=== PATIENT | male | born 1945 | race Hispanic/Latino ===

== ENCOUNTER 2019-02-01 08:51 | Emergency (ER) | payer OTHER ==
--- NOTE | 2019-02-01 10:14 | ER ---
Nurse's Notes [facility] Name: Adolph Lopez Age: 73 yrs Sex: Male : 1945 Arrival Date: 02/01/2019 Time: 08:54 Bed 18 Private MD: Diagnosis: Pain in right knee;Pain in left knee Presentation: 02/01 09:03 Presenting complaint: Patient states: frandy knee pain that got worse last night after iw walking at graduation last night. Transition of care: patient was not received from another setting of care. Onset of symptoms was January 31, 2019. Risk Assessment: Do you want to hurt yourself or someone else? Patient reports no desire to harm self or others. Initial Sepsis Screen: Does the patient meet any 2 criteria? No. Patient's initial sepsis screen is negative. Does the patient have a suspected source of infection? No. Patient's initial sepsis screen is negative. Care prior to arrival: None. 09:03 Method Of Arrival: Ambulatory iw 09:03 Acuity: TANIA 4 iw Historical: - Allergies: 09:05 No Known Allergies; iw - PMHx: 09:05 None; iw - PSHx: 09:05 None; iw - Immunization history:: Adult Immunizations not up to date. - Social history:: Smoking status: Patient uses tobacco products, denies chronic smoking, but will smoke occasionally. - Ebola Screening: : Patient negative for fever greater than or equal to 101.5 degrees Fahrenheit, and additional compatible Ebola Virus Disease symptoms Patient denies exposure to infectious person Patient denies travel to an Ebola-affected area in the 21 days before illness onset No symptoms or risks identified at this time. - Family history:: not pertinent. Screenin:16 Abuse screen: Denies threats or abuse. Nutritional screening: No deficits noted. em Tuberculosis screening: No symptoms or risk factors identified. Fall Risk None identified. Assessment: 09:16 General: Appears in no apparent distress. uncomfortable, Behavior is calm, cooperative, em Denies fever. Pain: Complains of pain in left knee Pain currently is 10 out of 10 on a pain scale. Aggravated by exercise, increased activity. Neuro: Level of Consciousness is awake, alert, obeys commands, Oriented to person, place, time, situation. Cardiovascular: Capillary refill < 3 seconds Patient's skin is warm and dry. Respiratory: Airway is patent Respiratory effort is even, unlabored, Respiratory pattern is regular, symmetrical. Derm: Skin is intact, is healthy with good turgor, Skin is pink, warm \T\ dry. Musculoskeletal: Capillary refill < 3 seconds, Swelling absent. 09:30 Reassessment: Patient appears in no apparent distress at this time. I agree with above iw assessment by Rinku Mejias LVN. 10:12 Reassessment: Patient appears in no apparent distress at this time. Patient and/or em family updated on plan of care and expected duration. Pain level reassessed. Patient is alert, oriented x 3, equal unlabored respirations, skin warm/dry/pink. Vital Signs: 09:06 BP 141 / 79; Pulse 100; Resp 16 S; Temp 98.9(O); Pulse Ox 99% on R/A; Weight 70.31 kg; iw Height 5 ft. 3 in. (160.02 cm); Pain 10/10; 10:00 BP 141 / 87; Pulse 69; Resp 18; Pulse Ox 99% on R/A; Pain 10/10; em 09:06 Body Mass Index 27.46 (70.31 kg, 160.02 cm) iw ED Course: 08:54 Patient arrived in ED. rg4 08:56 Rinku Mejias LVN is Primary Nurse. em 08:56 Taurus Ellsworth MD is Attending Physician. bryce 09:05 Triage completed. iw 09:06 Arm band placed on. iw 09:16 Patient has correct armband on for positive identification. Bed in low position. Call em light in reach. Adult w/ patient. Pulse ox on. NIBP on. 10:01 X-ray completed. Portable x-ray completed in exam room. Patient tolerated procedure la2 well. 10:03 Knee Left 3 View XRAY In Process Unspecified. EDMS 10:13 Bayron Lee MD is Referral Physician. bryce 10:25 No provider procedures requiring assistance completed. Patient did not have IV access em during this emergency room visit. Administered Medications: 10:08 Drug: Motrin 600 mg Route: PO; em 10:25 Follow up: Response: No adverse reaction; Pain is decreased em 10:08 Drug: predniSONE 20 mg Route: PO; em 10:26 Follow up: Response: No adverse reaction; Pain is decreased em 10:08 Drug: [place] (7.5 mg-325 mg) 1 tabs Route: PO; em 10:26 Follow up: Response: No adverse reaction; Pain is decreased em Outcome: 10:13 Discharge ordered by . bryce 10:25 Discharged to home ambulatory, with family. em 10: Condition: good 10:25 Discharge instructions given to patient, family, Instructed on discharge instructions, follow up and referral plans. medication usage, Demonstrated understanding of instructions, follow-up care, medications, Prescriptions given X 3. 10:26 Patient left the ED. em Signatures: Dispatcher [employer] EDSD Taurus Ellsworth MD MD cha Munoz, Edgar, SHOULDER PAD MOLDER SHOULDER PAD MOLDER em Padmini Thomas, Alka Florez RN rg4 Sejal Luna
--- NOTE | 2019-02-01 10:14 | EDPHYS ---
Physician Documentation [facility] Name: Adolph Lopez Age: 73 yrs Sex: Male : 1945 Arrival Date: 02/01/2019 Time: 08:54 Bed 18 Private MD: ED Physician Taurus Ellsworth HPI: 02/01 10:08 This 73 yrs old Male presents to ER via Ambulatory with complaints of Knee bryce Pain. 10:08 The patient presents with decreased range of motion, pain, that is acute. The bryce complaints affect the right leg and left leg. Context: The problem was sustained at an unknown site. Onset: The symptoms/episode began/occurred 3 day(s) ago. Modifying factors: The symptoms are alleviated by elevating leg, remaining still, the symptoms are aggravated by movement, weight bearing. Associated signs and symptoms: The patient has no apparent associated signs or symptoms. Severity of symptoms: At their worst the symptoms were moderate, in the emergency department the symptoms are unchanged. The patient has not experienced similar symptoms in the past. Historical: - Allergies: 09:05 No Known Allergies; iw - PMHx: 09:05 None; iw - PSHx: 09:05 None; iw - Immunization history:: Adult Immunizations not up to date. - Social history:: Smoking status: Patient uses tobacco products, denies chronic smoking, but will smoke occasionally. - Ebola Screening: : Patient negative for fever greater than or equal to 101.5 degrees Fahrenheit, and additional compatible Ebola Virus Disease symptoms Patient denies exposure to infectious person Patient denies travel to an Ebola-affected area in the 21 days before illness onset No symptoms or risks identified at this time. - Family history:: not pertinent. ROS: 10:08 Constitutional: Negative for fever, chills, and weight loss, Eyes: Negative for injury, bryce pain, redness, and discharge, ENT: Negative for injury, pain, and discharge, Neck: Negative for injury, pain, and swelling, Cardiovascular: Negative for chest pain, palpitations, and edema, Respiratory: Negative for shortness of breath, cough, wheezing, and pleuritic chest pain, Abdomen/GI: Negative for abdominal pain, nausea, vomiting, diarrhea, and constipation, Back: Negative for injury and pain, : Negative for injury, bleeding, discharge, and swelling, Skin: Negative for injury, rash, and discoloration, Neuro: Negative for headache, weakness, numbness, tingling, and seizure, Psych: Negative for depression, anxiety, suicide ideation, homicidal ideation, and hallucinations, Allergy/Immunology: Negative for hives, rash, and allergies, Endocrine: Negative for neck swelling, polydipsia, polyuria, polyphagia, and marked weight changes, Hematologic/Lymphatic: Negative for swollen nodes, abnormal bleeding, and unusual bruising. 10:08 MS/extremity: Positive for decreased range of motion, pain, tenderness, of the right leg and left leg. Exam: 10:08 Constitutional: This is a well developed, well nourished patient who is awake, alert, bryce and in no acute distress. Head/Face: Normocephalic, atraumatic. Eyes: Pupils equal round and reactive to light, extra-ocular motions intact. Lids and lashes normal. Conjunctiva and sclera are non-icteric and not injected. Cornea within normal limits. Periorbital areas with no swelling, redness, or edema. ENT: Nares patent. No nasal discharge, no septal abnormalities noted. Tympanic membranes are normal and external auditory canals are clear. Oropharynx with no redness, swelling, or masses, exudates, or evidence of obstruction, uvula midline. Mucous membranes moist. Neck: Trachea midline, no thyromegaly or masses palpated, and no cervical lymphadenopathy. Supple, full range of motion without nuchal rigidity, or vertebral point tenderness. No Meningismus. Chest/axilla: Normal chest wall appearance and motion. Nontender with no deformity. No lesions are appreciated. Cardiovascular: Regular rate and rhythm with a normal S1 and S2. No gallops, murmurs, or rubs. Normal PMI, no JVD. No pulse deficits. Respiratory: Lungs have equal breath sounds bilaterally, clear to auscultation and percussion. No rales, rhonchi or wheezes noted. No increased work of breathing, no retractions or nasal flaring. Abdomen/GI: Soft, non-tender, with normal bowel sounds. No distension or tympany. No guarding or rebound. No evidence of tenderness throughout. Back: No spinal tenderness. No costovertebral tenderness. Full range of motion. Male : Normal genitalia with no discharge or lesions. Skin: Warm, dry with normal turgor. Normal color with no rashes, no lesions, and no evidence of cellulitis. Neuro: Awake and alert, GCS 15, oriented to person, place, time, and situation. Cranial nerves II-XII grossly intact. Motor strength 5/5 in all extremities. Sensory grossly intact. Cerebellar exam normal. Normal gait. Psych: Awake, alert, with orientation to person, place and time. Behavior, mood, and affect are within normal limits. 10:08 Musculoskeletal/extremity: Extremities: ROM: full active range of motion, Pulses: are normal with no appreciated deficits, Sensation intact. Compartment Syndrome exam of affected extremity: is normal. DVT Exam: no swelling, negative Homans' sign noted on exam, no appreciated bluish discoloration, no erythema, no increased warmth, pain, tenderness. Vital Signs: 09:06 BP 141 / 79; Pulse 100; Resp 16 S; Temp 98.9(O); Pulse Ox 99% on R/A; Weight 70.31 kg; iw Height 5 ft. 3 in. (160.02 cm); Pain 10/10; 10:00 BP 141 / 87; Pulse 69; Resp 18; Pulse Ox 99% on R/A; Pain 10/10; em 09:06 Body Mass Index 27.46 (70.31 kg, 160.02 cm) iw MDM: 08:56 Patient medically screened. [facility] 10:12 Data reviewed: vital signs, nurses notes, radiologic studies. [facility] 02/01 09:27 Order name: Knee Left 3 View XRAY em Administered Medications: 10:08 Drug: Motrin 600 mg Route: PO; em 10:25 Follow up: Response: No adverse reaction; Pain is decreased em 10:08 Drug: predniSONE 20 mg Route: PO; em 10:26 Follow up: Response: No adverse reaction; Pain is decreased em 10:08 Drug: [place] (7.5 mg-325 mg) 1 tabs Route: PO; em 10:26 Follow up: Response: No adverse reaction; Pain is decreased em Disposition: 02/01/19 10:13 Discharged to Home. Impression: Pain in right knee, Pain in left knee. - Condition is Stable. - Discharge Instructions: Joint Pain, Arthritis, Musculoskeletal Pain, Knee Pain, Arthritis, Laxx-ny-[id number]. - Prescriptions for Tylenol- Codeine #3 300-30 mg Oral Tablet - take 2 tablets by ORAL route every 6 hours As needed; 26 tablet. Medrol (Ricky) 4 mg Oral Tablets, Dose Pack - take 1 tablet by ORAL route as directed - follow package instructions; 1 packet. Motrin IB 200 mg Oral Tablet - take 2 tablet by ORAL route every 6 hours As needed as needed with food; 30 tablet. - Medication Reconciliation Form, Thank You Letter, Antibiotic Education, Prescription Opioid Use form. - Follow up: Private Physician; When: 2 - 3 days; Reason: Recheck today's complaints, Continuance of care, Re-evaluation by your physician. Follow up: Bayron Lee MD; When: 2 - 3 days; Reason: Recheck today's complaints, Re-evaluation by your physician. - Problem is new. - Symptoms have improved. Signatures: Dispatcher [employer] Taurus Cleveland MD MD cha Munoz, Edgar, COOK SUPERVISOR COOK SUPERVISOR em Padmini Thomas RN RN iw Corrections: (The following items were deleted from the chart) 10:26 10:13 02/01/2019 10:13 Discharged to Home. Impression: Pain in right knee; Pain in left em knee. Condition is Stable. Forms are Medication Reconciliation Form, Thank You Letter, Antibiotic Education, Prescription Opioid Use. Follow up: Private Physician; When: 2 - 3 days; Reason: Recheck today's complaints, Continuance of care, Re-evaluation by your physician. Follow up: Bayron Lee; When: 2 - 3 days; Reason: Recheck today's complaints, Re-evaluation by your physician. Problem is new. Symptoms have improved. bryce
[2019-02-01] MEDS ORDERED: IBUPROFEN 400 MG TAB ONE (10:18)
[2019-02-01] MEDS ORDERED: predniSONE 20 MG TAB ONE (10:18)
[2019-02-01] MEDS ORDERED: IBUPROFEN 200 MG TAB PO ONE (10:18)
[2019-02-01] MEDS ORDERED: HYDROCODONE/APAP 7.5/325 MG TAB ONE (10:18)
--- NOTE | 2019-02-01 11:22 | RAD REPORT ---
EXAM DESCRIPTION: RAD - Knee Left 3 View - 02/01/2019 10:03 am CLINICAL HISTORY: PAIN COMPARISON: No comparisons FINDINGS: Advanced osteoarthritis involves the medial joint compartment with loss of joint space and large osteophytes. A small suprapatellar joint effusion is present. No acute fracture demonstrated IMPRESSION: Advanced medial compartment osteoarthritis.
== END 2019-02-01 10:26 | disposition home or self-care (01) ==
LOC: ER 08:51
DX: M25.562 Pain in left knee (principal); M25.561 Pain in right knee; Z72.0 Tobacco use
CPT/HCPCS: 99284; J7512

== ENCOUNTER 2019-10-01 12:22 | Emergency (ER) | payer OTHER ==
--- OUTSIDE RECORDS SUMMARY | 2019-10-01 12:24 | XMS REPORT ---
:1945 [facility] [address] [place] [address] Care Team Providers Name Role Phone Unavailable Unavailable Unavailable Problems This patient has no known problems. Allergies, Adverse Reactions, Alerts This patient has no known allergies or adverse reactions. Medications This patient has no known medications.
[2019-10-01 14:45] LABS: Absolute Lymphocytes (CBC) 1.8 K/uL (0.7-4.9); Basophils % 0.9 % (0-1.3); Hematocrit 45.1 % (39.6-49.0); Lymphocytes % 24.5 % (15.3-44.8); MPV 10.6 fL (7.6-11.3); RBC Red Blood Cell Count 4.41 M/uL (4.33-5.43)
[2019-10-01 15:02] LABS: Albumin 4.2 g/dL (3.4-5.0); Bilirubin Direct 0.2 mg/dL (0-0.2); Bilirubin Total 0.4 mg/dL (0.2-1.0); Potassium 4.3 mmol/L (3.5-5.1); Protein, Total 7.8 g/dL (6.4-8.2)
[2019-10-01 15:38] LABS: Urine Blood NEGATIVE (NEG); Urine Glucose NEGATIVE (NEG); Urine Protein NEGATIVE (NEG); Urine pH 5.5 (5.0-7.0)
[2019-10-01 15:49] LABS: Urine Bacteria <20 /HPF (NONE SEEN); Urine Culture Reflex Order NOT NEEDED; Urine RBC <5 /HPF (NONE SEEN)
--- NOTE | 2019-10-01 15:51 | RAD REPORT ---
EXAM DESCRIPTION: CT - Abdomen Pelvis W Contrast - 10/01/2019 3:24 pm CLINICAL HISTORY: LLQ abd pain COMPARISON: No comparisons TECHNIQUE: Biphasic, helical CT imaging of the abdomen and pelvis was performed following 100 ml non -ionic IV contrast. No oral contrast. All CT scans are performed using dose optimization technique as appropriate and may include automated exposure control or mA/KV adjustment according to patient size. FINDINGS: No focal mass, consolidation or pleural fluid. Interstitial markings are prominent which c ould be baseline fibrosis, edema, infiltrate or a combination. Mild cardiomegaly seen without pericar dial effusion. Liver shows mild fatty infiltration pattern with no focal abnormality. No spleen or pancreatic acute finding. Gallbladder and biliary tree are also without suspicious finding. Symmetric renal function is seen with no hydronephrosis or suspicious renal mass. No pyelonephritis o r acute parenchymal process. Urinary bladder is mostly contracted. Prostate gland is mildly prominent . No adrenal abnormalities. No dilated bowel loops or bowel wall thickening. Prominent sigmoid diverticulosis present without div erticulitis. An acute GI process is not identified. No free air, free fluid or inflammatory stranding . Small bilateral fat filled inguinal hernia is present. No suspicious bony findings. IMPRESSION: Prominent sigmoid diverticulosis without diverticulitis. No acute GI process seen. No hy dronephrosis or acute finding identifiable. Small bilateral fat filled inguinal hernias are present without acute component seen. Mild fatty infiltration of the liver.
--- NOTE | 2019-10-01 16:11 | ER ---
Nurse's Notes [facility] Name: Adolph Lopez Age: 74 yrs Sex: Male : 1945 Arrival Date: 10/01/2019 Time: 12:25 Bed 15 Private MD: Diagnosis: Bilateral inguinal hernia, without obstruction or gangrene Presentation: 10/01 12:58 Presenting complaint: Patient states: left groin pain radiates into left hip X 1 month. iw Transition of care: patient was not received from another setting of care. Onset of symptoms was August 2019. Risk Assessment: Do you want to hurt yourself or someone else? Patient reports no desire to harm self or others. Initial Sepsis Screen: Does the patient meet any 2 criteria? No. Patient's initial sepsis screen is negative. Does the patient have a suspected source of infection? No. Patient's initial sepsis screen is negative. Care prior to arrival: None. 12:58 Method Of Arrival: Ambulatory iw 12:58 Acuity: TANIA 3 iw Historical: - Allergies: 12:59 No Known Allergies; iw - Home Meds: 12:59 Unable to obtain [Active]; iw - PMHx: 12:59 Arthritis; iw - PSHx: 12:59 None; iw - Immunization history:: Adult Immunizations not up to date. - Social history:: Smoking status: Patient reports the use of cigarette tobacco products, denies chronic smoking, but will smoke occasionally. - Ebola Screening: : Patient negative for fever greater than or equal to 101.5 degrees Fahrenheit, and additional compatible Ebola Virus Disease symptoms Patient denies exposure to infectious person Patient denies travel to an Ebola-affected area in the 21 days before illness onset No symptoms or risks identified at this time. - Family history:: not pertinent. - Hospitalizations: : No recent hospitalization is reported. Screenin:30 Abuse screen: Denies threats or abuse. Nutritional screening: No deficits noted. tw2 Tuberculosis screening: No symptoms or risk factors identified. Fall Risk None identified. Vital Signs: 12:59 BP 155 / 79; Pulse 88; Resp 16; Temp 98.4; Pulse Ox 98% on R/A; Weight 71.21 kg; Height iw 5 ft. 8 in. (172.72 cm); 12:59 Body Mass Index 23.87 (71.21 kg, 172.72 cm) ED Course: 12:25 Patient arrived in ED. mr 12:59 Triage completed. iw 13:22 Bed in low position. Call light in reach. Adult w/ patient. tw2 13:56 Denis Reyes MD is Attending Physician. rn 14:20 Bayron Israel, ELENA is Primary Nurse. 14:30 Inserted saline lock: 20 gauge in right antecubital area, using aseptic technique. tw2 Blood collected. 14:31 Arm band placed on. tw2 15:25 CT Abd/Pelvis - IV Contrast Only In Process Unspecified. EDMS 16:10 Elfego Xiao MD is Referral Physician. rn Administered Medications: No medications were administered Outcome: 16:11 Discharge ordered by . rn 16:46 Patient left the ED. Signatures: Dispatcher [employer] EDMS Bayron Israel, RN ELEAN tapia SarmientoCarmen mr ThomasPadmini RN RN Denis Reyes MD MD rn Wise, Tara, RN RN tw2
--- NOTE | 2019-10-01 16:11 | EDPHYS ---
Physician Documentation [facility] Name: Adolph Lopez Age: 74 yrs Sex: Male : 1945 Arrival Date: 10/01/2019 Time: 12:25 Bed 15 Private MD: ED Physician Denis Reyes HPI: 10/01 15:21 This 74 yrs old Male presents to ER via Ambulatory with complaints of left rn lower abd pain. 15:22 The patient presents with abdominal pain in the left lower quadrant. rn 15:27 Onset: The symptoms/episode began/occurred 1 month(s) ago. The symptoms do not radiate. rn Associated signs and symptoms: Pertinent negatives: nausea and vomiting, anorexia, blood in stools, chest pain, constipation, diarrhea, dysuria, fever, headache, hematuria, nausea, palpitations, shortness of breath, testicular pain, vomiting, vomiting blood. Modifying factors: The symptoms are alleviated by nothing, the symptoms are aggravated by touching the area. Severity of pain: At its worst the pain was mild in the emergency department the pain has improved. The patient has experienced similar episodes in the past. Reports about 1 month of left lower abd pain, not sure what it is, no trauma, no radiation, no fever/vomiting/diarrhea. No urinary symptoms. No swelling or bulge. No hematuria. . Historical: - Allergies: 12:59 No Known Allergies; iw - Home Meds: 12:59 Unable to obtain [Active]; iw - PMHx: 12:59 Arthritis; iw - PSHx: 12:59 None; iw - Immunization history:: Adult Immunizations not up to date. - Social history:: Smoking status: Patient reports the use of cigarette tobacco products, denies chronic smoking, but will smoke occasionally. - Ebola Screening: : Patient negative for fever greater than or equal to 101.5 degrees Fahrenheit, and additional compatible Ebola Virus Disease symptoms Patient denies exposure to infectious person Patient denies travel to an Ebola-affected area in the 21 days before illness onset No symptoms or risks identified at this time. - Family history:: not pertinent. - Hospitalizations: : No recent hospitalization is reported. ROS: 15:27 Constitutional: Negative for fever, chills, and weight loss, Eyes: Negative for injury, rn pain, redness, and discharge, Neck: Negative for injury, pain, and swelling, Cardiovascular: Negative for chest pain, palpitations, and edema, Respiratory: Negative for shortness of breath, cough, wheezing, and pleuritic chest pain, Abdomen/GI: Negative for nausea, vomiting, diarrhea, and constipation, Back: Negative for injury and pain, : Negative for injury, bleeding, discharge, and swelling, MS/Extremity: Negative for injury and deformity, Skin: Negative for injury, rash, and discoloration, Neuro: Negative for headache, weakness, numbness, tingling, and seizure. Exam: 15:27 Constitutional: This is a well developed, well nourished patient who is awake, alert, rn and in no acute distress. Head/Face: Normocephalic, atraumatic. Cardiovascular: Regular rate and rhythm. No pulse deficits. Respiratory: No increased work of breathing, no retractions or nasal flaring. Abdomen/GI: soft, non-tender, no masses Back: No spinal tenderness. No costovertebral tenderness. Full range of motion. Skin: Warm, dry with normal turgor. Normal color with no rashes, no lesions, and no evidence of cellulitis. MS/ Extremity: Pulses equal, no cyanosis. Neurovascular intact. Full, normal range of motion. Equal circumference. Neuro: Awake and alert, GCS 15, oriented to person, place, time, and situation. Cranial nerves II-XII grossly intact. Motor strength 5/5 in all extremities. Sensory grossly intact. Cerebellar exam normal. Normal gait. Vital Signs: 12:59 BP 155 / 79; Pulse 88; Resp 16; Temp 98.4; Pulse Ox 98% on R/A; Weight 71.21 kg; Height iw 5 ft. 8 in. (172.72 cm); 12:59 Body Mass Index 23.87 (71.21 kg, 172.72 cm) iw MDM: 13:56 Patient medically screened. rn 16:09 Differential diagnosis: Ureterolithiasis, urinary tract infection, inguinal hernia. rn Data reviewed: vital signs, nurses notes, lab test result(s), radiologic studies, CT scan, and as a result, I will discharge patient. Counseling: I had a detailed discussion with the patient and/or guardian regarding: the historical points, exam findings, and any diagnostic results supporting the discharge/admit diagnosis, lab results, radiology results, the need for outpatient follow up, to return to the emergency department if symptoms worsen or persist or if there are any questions or concerns that arise at home. Special discussion: I discussed with the patient/guardian in detail that at this point there is no indication for admission to the hospital. It is understood, however, that if the symptoms persist or worsen the patient needs to return immediately for re-evaluation. Based on the history and exam findings, there is no indication for further emergent testing or inpatient evaluation. I discussed with the patient/guardian the need to see the general surgeon for further evaluation of the symptoms. ED course: Pt with bilateral small fat inguinal hernias, no obstruction or acute complication, will dc home with return instructions and f/u with Dr. Xiao. . 10/01 14:02 Order name: Basic Metabolic Panel; Complete Time: 16:02 10/01 14:02 Order name: CBC with Diff; Complete Time: 16: 10/01 14:02 Order name: Creatinine for Radiology; Complete Time: 16:12 10/01 14:02 Order name: Hepatic Function; Complete Time: 16:12 10/01 14:02 Order name: Lipase; Complete Time: 16:12 10/01 14:02 Order name: Urine Microscopic Only; Complete Time: 16:12 10/01 14:02 Order name: IV Saline Lock; Complete Time: 14: 10/01 14:02 Order name: Labs collected and sent; Complete Time: 14:20 10/01 14:02 Order name: CT Abd/Pelvis - IV Contrast Only; Complete Time: 16:12 10/01 14:02 Order name: Urine Dipstick-Ancillary (obtain specimen); Complete Time: 15:08 10/01 15:10 Order name: Urine Dipstick--Ancillary (enter results); Complete Time: 16:12 bd Administered Medications: No medications were administered Disposition: 10/01/19 16:11 Discharged to Home. Impression: Bilateral inguinal hernia, without obstruction or gangrene. - Condition is Stable. - Discharge Instructions: Inguinal Hernia, Adult. - Medication Reconciliation Form, Thank You Letter, Antibiotic Education, Prescription Opioid Use form. - Follow up: Elfego Xiao MD; When: As needed; Reason: Recheck today's complaints, Re-evaluation by your physician. - Problem is an ongoing problem. - Symptoms are unchanged. Signatures: Dispatcher [employer] Padmini Gregg RN RN iw Denis Reyes MD MD rn embedded: (The following items were deleted from the chart) 16:46 16:11 10/01/2019 16:11 Discharged to Home. Impression: Bilateral inguinal hernia, iw without obstruction or gangrene. Condition is Stable. Forms are Medication Reconciliation Form, Thank You Letter, Antibiotic Education, Prescription Opioid Use. Follow up: Elfego Xiao; When: As needed; Reason: Recheck today's complaints, Re-evaluation by your physician. Problem is an ongoing problem. Symptoms are unchanged. rn
[2019-10-01 23:28] VITALS: BP 155/79; TEMP 98.4; O2SAT 98
== END 2019-10-01 16:46 | disposition home or self-care (01) ==
LOC: ER 12:22
DX: K40.20 Bilateral inguinal hernia, without obstruction or gangrene, not specified as recurrent (principal); F17.210 Nicotine dependence, cigarettes, uncomplicated
CPT/HCPCS: 85025; 80048; 36415; 80076; 83690; 74177; 99283; Q9967; 81003; 81015

== ENCOUNTER 2020-08-16 12:32 | Day surgery (SDC) | payer OTHER ==
--- NOTE | 2020-08-13 16:46 | RAD REPORT ---
EXAM DESCRIPTION: RAD - Chest Pa And Lat (2 Views) - 08/13/2020 4:40 pm CLINICAL HISTORY: pre op Chest pain. COMPARISON: No comparisons FINDINGS: The lungs are mildly emphysematous but clear. The heart is upper limit of normal in size. No displaced fractures. Mild thoracic degenerative changes. IMPRESSION: Mild COPD.
[2020-08-13 16:53] LABS: Absolute Lymphocytes (CBC) 2.4 K/uL (0.7-4.9); Hematocrit 37.2 % (39.6-49.0); Lymphocytes % 33.7 % (15.3-44.8); RBC Red Blood Cell Count 3.52 M/uL (4.33-5.43)
[2020-08-13 16:58] LABS: Protime INR 0.93
[2020-08-13 17:14] LABS: Potassium 4.8 mmol/L (3.5-5.1)
[2020-08-13 18:21] LABS: Blood Morphology Comment NOTED (NOT SEEN); Macrocytosis 1+; Platelet Estimate ADEQ; White Blood Cell Scan OK (OK)
[~2020-08-16 12:32] MED LIST: NA CHLORIDE 0.9% 500 ML ONE
[2020-08-16 12:38] VITALS: TEMP 97.7
--- OUTSIDE RECORDS SUMMARY | 2020-08-16 12:38 | XMS REPORT | Continuity of Care Document ---
:1945 Author Organization [facility] t Address [address] [place] [address] Care Team Providers Name Role Phone Driss Washburn MD Attending Clinician Alon Snell Attending Clinician Problems This patient has no known problems. Allergies, Adverse Reactions, Alerts This patient has no known allergies or adverse reactions. Medications This patient has no known medications. Procedures This patient has no known procedures. Encounters Start End Encounter Admission Attending Care Care Encounter Source Date/Time Date/Time Type Type Clinicians Facility Department ID 2020-06-30 2020-06-30 Telephone Wu [facility] [id number] 00:00:00 00:00:00 [facility] [id number] Surgical [id number] Specialti [id number] [address] 2020-02-19 2020-02-19 Telephone Wu [facility] [id number] 00:00:00 00:00:00 Tyler [employer] [id number] Surgical [id number] Specialti [id number] [address] 2019-12-17 2019-12-17 Telephone Wu [facility] [id number] 00:00:00 00:00:00 [facility] [employer] [id number] Surgical [id number] Specialti [id number] [address] 2019-10-24 2019-10-24 Telephone Kimberly LUZMA [id number] 00:00:00 00:00:00 [facility] [id number] Surgical [id number] Specialti [id number] [address] Results This patient has no known results.
--- OUTSIDE RECORDS SUMMARY | 2020-08-16 12:39 | XMS REPORT | Summary of Care ---
:1945 Author Organization [facility] Address [address] [place] [id number] Care Team Providers Name Role Phone Lam Crane Primary Care Provider Reason for Visit Reason Comments Rx Concern/Question Encounter Details Date Type Department Care Team Description 06/30/2020 Telephone [facility] Tyler Washburn , Rx Concern/Question Surgery- Chance HAQUE [address] [facility], [address] [facility] [place] [address] [place], [place] [phone] Allergies No Known Allergiesdocumented as of this encounter (statuses as of 07/01/2020) Medications Medication Sig Dispensed Refills Start Date End Date Status omeprazole (PRILOSEC) 40 Take 40 mg by 0 Active mg capsule mouth daily. methocarbamol (ROBAXIN) Take 1 tablet by 20 tablet 0 6 Active 750 mg tablet mouth 4 (four) times daily as needed for Pain (scale 7-10). diclofenac 75 mg EC Take 1 tablet by 60 tablet 1 06/10/2019 Active tablet mouth 2 (two) times daily with meals. diclofenac 75 mg EC Take 1 tablet by 60 tablet 0 10/24/2019 Active tabletIndications: mouth 2 (two) Bilateral post-traumatic times daily with osteoarthritis of knee meals. diclofenac 75 mg EC Take 1 tablet by 60 tablet 1 12/17/2019 Active tablet mouth 2 (two) times daily with meals. diclofenac 75 mg EC Take 1 tablet by 60 tablet 1 02/23/2020 Active tablet mouth 2 (two) times daily with meals. diclofenac 75 mg EC Take 1 tablet by 60 tablet 1 07/01/2020 Active tablet mouth 2 (two) times daily with meals. documented as of this encounter (statuses as of 07/01/2020) Active Problems Not on filedocumented as of this encounter (statuses as of 07/01/2020) Social History Tobacco Use Types Packs/Day Years Used Date Current Every Day Smoker Cigarettes 0.5 Alcohol Use Drinks/Week oz/Week Comments No Sex Assigned at Date Recorded Not on file documented as of this encounter Last Filed Vital Signs Not on filedocumented in this encounter Miscellaneous Notes Telephone Encounter - Trish Winkler - 07/01/2020 8:20 AM CDTMedication sent to pharmacy on file. Trish Winkler 07/01/2020 8:21 AM elephone Encounter - Donald Harris PAC - 06/30/2020 4:37 PM CDTOkay to refill elephone Encounter - Sun Pagan - 06/30/2020 12:43 PM CDT Patient needs a refill on his Diclofenac 75mg tablets? Last OV: 02/27/2019 Assessment/Plan Diagnosis 1. Bilateral post-traumatic osteoarthritis of knee XR KNEE <3 VW RIGHT Plan Osteoarthritis is first managed with [id number] medications such as Tylenol arthritis or anti-inflammatories without no longer working we can go to prescription strength anti-inflammatory medicationsNo medication is without risk anti-inflammatory's inhibit the buffy coat of the stomach which canlead to gastrointestinal bleeding. They can decrease the blood flow to the kidneys. If you're taking an anticoagulant to prevent cardiac disease they can inhibit that anticoagulants ability to protect you. Whether they are prescribed or [id number]. Cortisone injections take a day to take effect and have a duration of 1-2 months you cannot get morethan 3 cortisone injections in a year and may have to be at least 3 months apart If the cortisone injections work, I molecular hyaluronic acid injections are effective for 6 months of pain relief in 3 out of 4 people there administered one shot a week for 3 weeks Through a combination of these conservative methods we will try as long as possible not to do surgery. Eventually we may need to do a total knee replacement total knee replacements are effective in alleviating the pain of arthritis in the knee but there is a chance of needing revision and so we should wait as long as possible before doing that. No decision for surgery has been made. We will start with diclofenac sodium. documented in this encounter Plan of Treatment Health Maintenance Due Date Last Done Comments HEPATITIS C (HCV) SCREEN 1945 Depression Screening 1959 DTaP,Tdap,and Td Vaccines (1 - Tdap) 1966 COLON CANCER SCREENING ANNUAL FIT/FOBT 1997 COLON CANCER SCREENING FIT DNA EVERY 3 YEARS 1997 COLON CANCER SCREENING SIGMOIDOSCOPY EVERY 5 YEARS 1997 COLONOSCOPY 1997 Colorectal Cancer Screening 1997 Zoster Recombinant Vaccine (SHINGRIX) (1 of 2) 1997 Medicare Wellness Visit 02/25/2012 PNEUMOCOCCAL VACCINES 65+ (1 of 1 - PPSV23) 02/25/2012 INFLUENZA VACCINE (#1) 2020 documented as of this encounter Results Not on filedocumented in this encounter Insurance Payer Benefit Plan / Subscriber ID Effective Dates Phone Addre ss Type Group MEDICARE MEDICARE PART [id number] 2016-Mery [phone] Medicare A & B t 2 [id number] IGNACIO HOOPER [id number] documented as of this encounter
[2020-08-16] MEDS ORDERED: FENTANYL CITR 100 MCG/2 ML ONE (12:59)
[2020-08-16] MEDS ORDERED: HEPARIN 5000 UNIT/ML 1 ML VIAL ONE (12:59)
[2020-08-16] MEDS ORDERED: MIDAZOLAM HCL 2 MG/2 ML INJ ONE (12:59)
[2020-08-16] MEDS ORDERED: HEPA 1000U/500MLS 2,000 UNIT/1,000 ML BAG IV ONE (12:59)
[2020-08-16] MEDS ORDERED: VERAPAMIL HCL 10 MG/4 ML VIAL IV ONE (13:00)
[2020-08-16] MEDS ORDERED: ATROPINE SULF 1 MG/10 ML SYR IV ONE (13:00)
[2020-08-16] MEDS ORDERED: NITROGLYCERIN 100 MCG/ML SYR (for cath lab use only) IV ONE (13:00)
[2020-08-16] MEDS ORDERED: HEPARIN 10,000 UNIT/10 ML VIAL IV ONE (13:00)
[2020-08-16] MEDS ORDERED: ACETYLCYST 20% 4 ML VIAL IH ONE (13:23)
[2020-08-16 18:23] VITALS: O2SAT 96
[2020-08-16 18:25] VITALS: BP 130/67
--- NOTE | 2020-08-16 22:52 | OP ---
Date of Procedure: 08/16/2020 Surgeon: KUSH ARTHUR Procedure Performed: Selective coronary angiogram. Indication: Drop in ejection fraction and unstable angina. Access: Right radial artery 6-Austrian closed with TR band. Complications: None. Bleeding: Less than 10 mL. Description Of Procedure: After risks, benefits, and alternatives were explained, the patient agreed to procedure and signed informed consent. The patient was brought into the cardiac catheterization laboratory, prepped and draped in usual sterile fashion. We used fentanyl and Versed in incremental doses to achieve adequate moderate sedation. Then, we accessed right radial artery using pediatric m icropuncture kit, placed a 6-Austrian slender sheath and took 5-Austrian Dickens catheter in the aortic zahra t, engaged left main coronary artery, took standard views and then right coronary artery, took standa rd views and then took the catheter out and sheath was removed and placed TR band. Findings: 1.Left main is large with luminal irregularity, no significant disease. 2.LAD has proximal near total occlusion 99% with good collaterals that come from the conus branch fr om the RCA and the distal RCA that fills all the way to the near total occlusion. 3.D1 is very large branch with mid 90% to 95% stenosis. 4.Left circumflex large dominant circulation with proximal 30% stenosis. 5.OM1 is large branch with proximal 90% stenosis. 6.RCA is nondominant circulation with no significant disease and provides collaterals to the LAD as above. Conclusion: Severe multivessel disease as above. Recommendation: Refer for coronary artery bypass graft surgery. We will transfer the patient to [facility] for that reason. /MODL Voice ID: [id number] Report ID: [id number]
== END 2020-08-16 18:56 | disposition short-term general hospital (02) ==
LOC: CCL 12:32
PROVIDERS: ATTEND Internal Medicine
DX: I25.10 Atherosclerotic heart disease of native coronary artery without angina pectoris (principal); Z20.828 Contact with and (suspected) exposure to other viral communicable diseases; F17.210 Nicotine dependence, cigarettes, uncomplicated; I11.0 Hypertensive heart disease with heart failure; I50.9 Heart failure, unspecified
CPT/HCPCS: 85025; 80048; 36415; 85610; 85730; 71046; 93454; U0002; C1893; J1644 ×2; J2250; J3010; J7040

== ENCOUNTER 2021-03-12 16:43 | Emergency (ER) | payer OTHER ==
--- OUTSIDE RECORDS SUMMARY | 2021-03-12 16:56 | XMS REPORT | Continuity of Care Document ---
:1945 Author Organization [facility] t Address [address] [place] [address] Care Team Providers Name Role Phone Pcp Primary Care Physician Unavailable Driss Washburn MD Attending Clinician Main PARKER Attending Clinician Onesimo Vaughan MD Attending Clinician Panchito Estrada MD Attending Clinician [phone] Isabela Cason MD Attending Clinician Bernadette Flores MD Attending Clinician Mary Mares MD Attending Clinician Jj Majano MD Attending Clinician Dickson Chao MD Attending Clinician PANCHITO ESTRADA Attending Clinician Unavailable Alon Snell Attending Clinician MARY MARES Admitting Clinician Unavailable Payers Payer Name Policy Type Policy Effective Date Expiration Date Sour ce Number MEDICAREMEDICARE A [id number] 2012 IRVING Roa [id number] 2011-P 00:00:00 [facility] Problems Condition Condition Condition Status Onset Resolution Last Treating Co mments Source Name Details Category Date Date Treatment Clinician Date s/p ACB x3 s/p ACB x3 Disease Active 2019-[address] 08/18 ( 08/18 ( 10-17 [place] Clement) Clement) 00:00: Medica l 00 Center S/P CABG x S/P CABG x Disease Active [facility] 3 3 [facility] Acute Acute Disease Active [facility] respirator respirator Nadya kes - y y Medical insufficie insufficie Ce nter ncy ncy Acute Acute Disease Active [facility] post-opera post-opera Nadya kes - tive pain tive pain [facility] Vasogenic Vasogenic Disease Active [facility] shock shock [facility] Hypovolemi Hypovolemi Disease Active C [facility] c shock c shock [facility] Acute Acute Disease Active [facility] blood loss blood loss [facility] anemia anemia [facility] Thrombocyt Thrombocyt Disease Active C [facility] openia openia [facility] Hyperglyce Hyperglyce Disease Active C [facility] jayme jayme [facility] Allergies, Adverse Reactions, Alerts This patient has no known allergies or adverse reactions. Social History Social Habit Start Date Stop Date Quantity Comments Source Sex Assigned At [facility] Cigarettes smoked 2020-09-16 2020-09-16 [facility] - current (pack per 00:00:00 00:00:00 [facility] day) - Reported Tobacco use and 2020-09-16 2020-09-16 Never used [facility] - exposure 00:00:00 00:00:00 [facility] Alcohol intake 2020-09-16 2020-09-16 Current drinker [facility] Alon dean [place] - 00:00:00 00:00:00 of alcohol [facility] (finding) Alcohol Comment 2020-08-16 2020-08-16 3 beers a day [facility] - 00:00:00 00:00:00 [facility] Smoking Status Start Date Stop Date Source Current every day smoker 2020-09-16 00:00:00 [facility] Medications Ordered Filled Start Stop Current Ordering Indication Dosage Frequency Signature Comments Components Source Medication Medication Date Date Medication? Clinician (SIG) Name Name aspirin 81 2019-09- No 81mg QD Take [address] [facility] [address] MG EC 2-15 12-15 tablet (81 [facility] - tablet 00:00: 23:59 mg total) Medic al 00 :00 by mouth Center daily. lisinopriL 2019-09 No 20mg QD Take [address] [facility] (PRINIVIL,Z 2-14 12-14 by mouth [facility]rishna es - ESTRIL) 20 13:36: 00:00 daily. Medi morteza MG tablet 46 :00 Center metoprolol 2019-09 No 12.5mg Q.5D Take 0.[address] tartrate 2-14 12-14 tablets [facility] - (LOPRESSOR) 00:00: 23:59 (12.5 mg M edical 25 MG 00 :00 total) by Center tablet mouth 2 (two) times daily. atorvastati 2019-09 No 40mg QD Take [address] n (LIPITOR) 2-23 08-14 tablet (40 L ukes - 40 MG 00:00: 23:59 mg total) Medica l tablet 00 :00 by mouth Center nightly. Vital Signs Vital Name Observation Time Observation Value Comments Source Systolic blood 2020-09-16 13:10:00 132 mm[Hg] [facility] Diastolic blood 2020-09-16 13:10:00 75 mm[Hg] [facility] Heart rate 2020-09-16 13:10:00 113 /min [facility] Body temperature 2020-09-16 13:10:00 37.06 Loli [facility] Respiratory rate 2020-09-16 13:10:00 18 /min [facility] Body height 2020-09-16 13:10:00 160 cm [facility] Body weight 2020-09-16 13:10:00 69.4 kg [facility] BMI 2020-09-16 13:10:00 27.10 kg/m2 [facility] Oxygen saturation in 2020-09-16 13:10:00 96 /min room air [facility] Arterial blood by Medical Ce nter Pulse oximetry Procedures Procedure Date / Time Performing Clinician Source Performed POCT-GLUCOSE METER 2020-08-23 11:33:00 Lena Flores [facility] POCT-GLUCOSE METER 2020-08-23 08:29:00 Mark, [facility] POCT-GLUCOSE METER 2020-08-22 20:30:00 Mark, [facility] POCT-GLUCOSE METER 2020-08-22 16:44:00 Mark, [facility] POCT-GLUCOSE METER 2020-08-22 12:29:00 Mark, [facility] POCT-GLUCOSE METER 2020-08-22 08:03:00 Mark, [facility] COMPREHENSIVE METABOLIC 2020-08-22 03:23:00 Petar Baldwin [facility] MAGNESIUM 2020-08-22 03:23:00 Petar Baldwin [facility] XR CHEST 1 VIEW 2020-08-22 02:18:00 Kingsley Vaughan [facility] - PORTABLE/BEDSIDE [facility] OCCULT BLOOD, STOOL 2020-08-21 22:06:00 Petar Baldwin [facility] POCT-GLUCOSE METER 2020-08-21 21:16:00 Mark, [facility] POCT-GLUCOSE METER 2020-08-21 16:34:00 Mark, [facility] POCT-GLUCOSE METER 2020-08-21 11:27:00 Mark, [facility] POCT-GLUCOSE METER 2020-08-21 07:31:00 Mark, [facility] XR CHEST 1 VIEW 2020-08-21 04:50:00 Petar Baldwin [facility] PORTABLE/BEDSIDE [facility] COMPREHENSIVE METABOLIC 2020-08-21 03:52:00 Petar Baldwin [facility] MAGNESIUM 2020-08-21 03:52:00 Petar Baldwin [facility] PREPARE LEUKO-REDUCED RBC 2020-08-20 23:54:00 Chago Gruber [facility] POCT-GLUCOSE METER 2020-08-20 22:09:00 Mark, [facility] POCT-GLUCOSE METER 2020-08-20 17:03:00 Mark, [facility] POCT-GLUCOSE METER 2020-08-20 12:10:00 Mark, [facility] LACTIC ACID, VENOUS 2020-08-20 11:56:00 Mark, [facility] POCT-GLUCOSE METER 2020-08-20 07:32:[address] [facility] COMPREHENSIVE METABOLIC 2020-08-20 06:17:00 Petar Baldwin [facility] MAGNESIUM 2020-08-20 06:17:00 Petar Baldwin [facility] PHOSPHORUS 2020-08-20 06:17:00 Temo Mandujano [facility] XR CHEST 1 VIEW 2020-08-20 05:01:00 Petar Baldwin [facility]/BEDSIDE [facility] BLOOD GAS, ARTERIAL 2020-08-20 03:32:00 Sissy Perry [facility] SODIUM NA-STAT LAB 2020-08-20 03:32:00 Sissy Perry [facility] POTASSIUM-STAT LAB 2020-08-20 03:32:00 Sissy Perry [facility] GLUCOSE-STAT LAB 2020-08-20 03:32:00 Sissy Perry [facility] HGB/HCT (H&H) - STAT LAB 2020-08-20 03:32:00 Sissy Perry [facility] PLATELET AGGREGATION: 2020-08-20 03:32:00 Natasha Arnold [facility] - FUNCTION SCREEN [facility] CBC (HEMOGRAM ONLY) 2020-08-20 03:32:00 Temo Mandujano [facility] PROTHROMBIN TIME/INR 2020-08-20 03:32:00 Petar Baldwin [facility] APTT 2020-08-20 03:32:00 Petar Baldwin [facility] FIBRINOGEN 2020-08-20 03:32:00 [facility] POCT-GLUCOSE METER 2020-08-19 23:59:[address] APTT 2020-08-19 18:15:00 Richardson [facility] THROMBOELASTOGRAPH (TEG) 2020-08-19 16:35:00 Sarah Mcgee [facility] PROTHROMBIN TIME/INR 2020-08-19 16:35:00 Richardson [facility] APTT 2020-08-19 16:35:00 Richardson [facility] FIBRINOGEN 2020-08-19 16:35:00 Richardson [facility] POCT-GLUCOSE METER 2020-08-19 11:20:[address] APTT 2020-08-19 11:11:00 Boom [facility] CBC W/PLT COUNT & AUTO 2020-08-19 11:11:00 Richardson [facility] TRANSFUSE LEUKO-REDUCED RED 2020-08-19 10:44:02 Chago Gruber [facility] BLOOD CELLS [facility] CBC (HEMOGRAM ONLY) 2020-08-19 03:45:00 Donn Cason [facility] BLOOD GAS, ARTERIAL 2020-08-19 03:44:[address] [facility] CALCIUM, IONIZED 2020-08-19 03:44:00 Evangelina Perrybeth [facility] OXYGEN SATURATION, MEASURED 2020-08-19 03:44:00 [facility] NA-STAT LAB 2020-08-19 03:44:[address] [facility] POTASSIUM-STAT LAB 2020-08-19 03:44:00 Sissy Perry [facility] GLUCOSE-STAT LAB 2020-08-19 03:44:00 Sissy Perry [facility] HGB/HCT (H&H) - STAT LAB 2020-08-19 03:44:00 Sissy Perry [facility] LACTIC ACID, ARTERIAL 2020-08-19 03:44:[address] [facility] COMPREHENSIVE METABOLIC 2020-08-19 03:44:00 Petar Baldwin [facility] MAGNESIUM 2020-08-19 03:44:00 Petar Baldwin [facility] PHOSPHORUS 2020-08-19 03:44:00 Temo Mandujano [facility] APTT 2020-08-19 03:44:00 Isabel Huynh [facility] XR CHEST 1 VIEW 2020-08-19 01:42:00 Petar Baldwin [facility]/BEDSIDE Medical Center BLOOD GAS, ARTERIAL 2020-08-18 22:16:00 Sissy Perry [facility] LACTIC ACID, ARTERIAL 2020-08-18 22:16:[facility] 2020-08-18 22:16:00 Sissy Perry [facility] POTASSIUM-STAT LAB 2020-08-18 22:16:00 [facility] 2020-08-18 22:16:00 Sissy Perry [facility] HGB/HCT (H&H) - STAT LAB 2020-08-18 22:16:00 Sissy Perry [facility] PROTHROMBIN TIME/INR 2020-08-18 22:16:00 [facility] 2020-08-18 22:16:00 Orlando [facility] FIBRINOGEN 2020-08-18 22:16:00 [facility] W/[facility]T [facility] & AUTO 2020-08-18 20:56:00 [facility] BLOOD GAS, ARTERIAL 2020-08-18 20:56:00 [facility] OXY[facility] SATURATION, MEASURED 2020-08-18 20:56:00 [facility] SODIUM NA-STAT LAB 2020-08-18 20:56:00 [facility] 2020-08-18 20:56:00 [facility] GLU[facility]SE-STAT LAB 2020-08-18 20:56:00 Sissy Perry [facility] HGB/HCT (H&H) - STAT LAB 2020-08-18 20:56:00 Sissy Perry [facility] LACTIC ACID, ARTERIAL 2020-08-18 20:56:[address] [facility] PREPARE RBC 2020-08-18 19:13:00 Kingsley Vaughan [facility] CBC W/PLT COUNT & AUTO 2020-08-18 19:05:00 Nimo Bai [facility] XR CHEST 1 VIEW 2020-08-18 19:02:00 Sissy Perry [facility] PORTABLE/BEDSIDE Medical Center MAGNESIUM 2020-08-18 19:00:00 Temo Mandujano [facility] BLOOD GAS, ARTERIAL 2020-08-18 19:00:00 Sissy Perry [facility] LACTIC ACID, ARTERIAL 2020-08-18 19:00:00 Sissy Perry [facility] COMPREHENSIVE METABOLIC 2020-08-18 19:00:00 Sissy Perry [facility] PHOSPHORUS 2020-08-18 19:00:00 [facility] PROTHR[facility]BIN TIME/INR 2020-08-18 19:00:00 [facility] 2020-08-18 19:00:00 [facility] FIBRINOGEN 2020-08-18 19:00:00 Orlando [facility] SODIUM NA-STAT LAB 2020-08-18 19:00:[address] [facility] POTASSIUM-STAT LAB 2020-08-18 19:00:00 Perry, [facility] GLUCOSE-STAT LAB 2020-08-18 19:00:00 Orlando [facility] HGB/HCT (H&H) - STAT LAB 2020-08-18 19:00:00 Orlando Sissy [facility] POCT-ACT 2020-08-18 17:08:00 Sammie Floresbaljinder Bernadette [facility] BLOOD GAS, ARTERIAL 2020-08-18 16:58:10 Jose Chao [facility] CALCIUM, IONIZED 2020-08-18 16:58:10 Jeremie [facility] APTT 2020-08-18 16:58:10 Jeremie [facility] PROTHROMBIN TIME/INR 2020-08-18 16:58:10 Jose Chao [facility] FIBRINOGEN 2020-08-18 16:58:10 Jose Chao [facility] PLATELET COUNT 2020-08-18 16:58:10 Jose Chao [facility] SODIUM NA-STAT LAB 2020-08-18 16:58:[address] [facility] POTASSIUM-STAT LAB 2020-08-18 16:58:[address] [facility] GLUCOSE-STAT LAB 2020-08-18 16:58:10 Jeremie [facility] HGB/HCT (H&H) - STAT LAB 2020-08-18 16:58:10 Chao, Jose Dcikson [facility] CBC W/PLT COUNT & AUTO 2020-08-18 16:58:[address] [facility] [place] [place] BLOOD GAS, ARTERIAL 2020-08-18 16:32:29 Clement [facility] SODIUM NA-STAT LAB 2020-08-18 16:32:29 Clement, [facility] POTASSIUM-STAT LAB 2020-08-18 16:32:29 Clement [facility] GLUCOSE-STAT LAB 2020-08-18 16:32:29 Clement, [facility] HGB/HCT (H&H) - STAT LAB 2020-08-18 16:32:29 Clement, [facility] POCT-ACT 2020-08-18 16:25:00 Mark, Lena [facility] BLOOD GAS, ARTERIAL 2020-08-18 16:15:19 Clement [facility] SODIUM NA-STAT LAB 2020-08-18 16:15:19 Clement [facility] POTASSIUM-STAT LAB 2020-08-18 16:15:19 Clement, [facility] GLUCOSE-STAT LAB 2020-08-18 16:15:19 Clement, [facility] HGB/HCT (H&H) - STAT LAB 2020-08-18 16:15:19 Clement [facility] POCT-ACT 2020-08-18 16:02:00 Mark, [facility] BLOOD GAS, VENOUS 2020-08-18 15:44:36 Clement [facility] BLOOD GAS, ARTERIAL 2020-08-18 15:44:32 Clement, [facility] SODIUM NA-STAT LAB 2020-08-18 15:44:32 Clement [facility] POTASSIUM-STAT LAB 2020-08-18 15:44:32 Clement [facility] GLUCOSE-STAT LAB 2020-08-18 15:44:32 Clement [facility] HGB/HCT (H&H) - STAT LAB 2020-08-18 15:44:32 Kingsley Vaughan [facility] POCT-ACT 2020-08-18 15:26:00 Mark, [facility] POCT-ACT 2020-08-18 15:04:00 Mark, [facility] ANESTHESIA BARAK 2020-08-18 14:13:41 Jose Chao [facility] POCT-ACT 2020-08-18 13:45:00 Mark, [facility] BLOOD GAS, ARTERIAL 2020-08-18 13:41:05 Jose Chao [facility] CALCIUM, IONIZED 2020-08-18 13:41:05 Jose Chao [facility] SODIUM NA-STAT LAB 2020-08-18 13:41:[address] [facility] POTASSIUM-STAT LAB 2020-08-18 13:41:[address] [facility] GLUCOSE-STAT LAB 2020-08-18 13:41:05 Jose Chao [facility] HGB/HCT (H&H) - STAT LAB 2020-08-18 13:41:05 Jose Chao [facility] BYPASS,AORTO CORONARY 2020-08-18 12:39:00 Clement [facility] MAYRA/SVG [facility] ENDOSCOPIC HARVEST,VEIN 2020-08-18 12:39:00 Clement [facility] BARAK,3D 2020-08-18 12:39:00 Clement [facility] POCT-GLUCOSE METER 2020-08-18 08:55:00 Mark, [facility] COMPREHENSIVE METABOLIC 2020-08-18 04:25:00 Petar Baldwin [facility] CBC (HEMOGRAM ONLY) 2020-08-18 04:25:00 Yoav Kettylee [facility] MAGNESIUM 2020-08-18 04:25:00 Petar Baldwin [facility] APTT 2020-08-18 04:25:00 Boom [facility] PHOSPHORUS 2020-08-18 04:25:00 MandujanoTemo adan Oseas [facility] PROTHROMBIN TIME/INR 2020-08-17 22:41:00 DebKiki pa [facility] APTT 2020-08-17 22:41:00 Nadya [facility] ECG 12-LEAD 2020-08-17 22:10:[address] [facility] POCT-GLUCOSE METER 2020-08-17 21:14:00 Donn Cason [facility] HC CAROTID DOPPLER CHARU 2020-08-17 21:10:00 Kingsley Vaughan [facility] HC VENOUS DOPPLER EXT CHARU 2020-08-17 19:31:00 Tisha Rapp [facility] POCT-GLUCOSE METER 2020-08-17 18:21:00 Donn Cason [facility] ABORH, MANUAL 2020-08-17 16:35:00 Carlotta Kyle [facility] APTT 2020-08-17 15:47:00 [facility] TYPE AND SCREEN, AUTOMATED 2020-08-17 15:47:[address] [facility] XR CHEST 1 VIEW 2020-08-17 15:21:00 Kingsley Vaughan [facility] - PORTABLE/BEDSIDE [facility] 2D ECHO W/ DOPPLER 2020-08-17 13:06:[address] [facility] (CW/PW/COLOR) [facility] POCT-GLUCOSE METER 2020-08-17 12:00:00 Donn Cason [facility] HC LAB PLATELET COUNT AUTO 2020-08-17 10:57:00 [facility] POCT-GLUCOSE METER 2020-08-17 08:59:00 Donn Cason [facility] TROPONIN I 2020-08-17 03:16:00 [facility] BASIC METABOLIC PANEL (7) 2020-08-17 03:16:[address] [facility] HEMOGLOBIN A1C 2020-08-17 03:16:00 Vishnu [facility] CBC W/PLT COUNT & AUTO 2020-08-17 03:16:00 Vishnu [facility] LIPID PANEL 2020-08-17 03:16:00 Boom [facility] SARS-COV2/RT-PCR (HS & REF 2020-08-17 03:14:00 Petar Baldwin [facility] POCT-GLUCOSE METER 2020-08-16 21:52:00 Deyanira Estrada [facility] CBC W/PLT COUNT & AUTO 2020-08-16 21:28:00 [facility]OP[facility]IN I 2020-08-16 21:25:00 Malou Mares [facility] MAGNESIUM 2020-08-16 21:25:00 [facility] PROTHROMBIN TIME/INR 2020-08-16 21:25:[address] [facility] BASIC METABOLIC PANEL (7) 2020-08-16 21:25:[address] [facility] HEPATIC FUNCTION PANEL 2020-08-16 21:25:[address] [facility] VASCULAR DIAGRAM -SCAN 2020-08-16 00:00:00 Provider, Default [facility] Plan of Care Planned Activity Planned Date Details Comments Source Future Scheduled 2021-08-[address] [facility] - Test 00:00:00 [facility] [code = 345892444] Future Scheduled 2020-09-[address] [facility] - Test 00:00:00 (12+) [code = Medical Center DEPRESSION SCREENING (12+)] Future Scheduled 2020-05-11 INFLUENZA VACCINE (#1) [facility] Test 00:00:00 [code = INFLUENZA Medical Ce nter VACCINE (#1)] Future Scheduled 2013-02-[address] [facility] - Test 00:00:00 WELLNESS (YEAR 2 or Medical Center FIRST YEAR if no IPPE) [code = MEDICARE ANNUAL WELLNESS (YEAR 2 or FIRST YEAR if no IPPE)] Future Scheduled 2012-02-25 PNEUMOCOCCAL 65+ YRS [facility] - Test 00:00:00 (1 of 1 - Medical Center [id number] PCV13) [code = PNEUMOCOCCAL 65+ YRS (1 of 1 - [id number] PCV13)] Future Scheduled 1997 SHINGLES VACCINES ([address] [facility] - Test 00:00:00 of 2) [code = SHINGLES Medic al Center VACCINES (1 of 2)] Future Scheduled 1966 DTAP/TDAP/TD VACCINES [facility] - Test 00:00:00 (1 - Tdap) [code = Medical C enter DTAP/TDAP/TD VACCINES (1 - Tdap)] Future Scheduled 1965 HEPATITIS C SCREENING [facility] - Test 00:00:00 [code = HEPATITIS C Medical Center SCREENING] Encounters Start End Encounter Admission Attending Care Care Encounter Source Date/Time Date/Time Type Type Clinicians Facility Department ID 2020-11-02 2020-11-02 Telephone KAYLEIGH Washburn [id number] 00:00:00 00:00:00 [facility] [id number] Surgical [id number] Specialti [id number] [address] [place] 2020-06-30 2020-06-30 Telephone KAYLEIGH Washburn [id number] 00:00:00 00:00:00 [facility] [id number] Surgical [id number] Specialti [id number] es [address] [place] 2020-02-19 2020-02-19 Telephone Wu [facility] [id number] 00:00:00 00:00:00 [facility] [id number] Surgical [id number] Specialti [id number] es [address] [place] 2019-12-17 2019-12-17 [facility] [id number] 00:00:00 00:00:00 [facility] [id number] Surgical [id number] Specialti [id number] es [address] [place] 2019-10-24 2019-10-24 [facility] [id number] 00:00:00 00:00:00 [facility] [id number] Surgical [id number] Specialti [id number] es [address] [place] Results Test Description Test Time Test Comments Results Result Sourc e Comments VASCULAR DIAGRAM 2020-08-26 Ordered by an [facility] -SCAN 11:20:54 unspecified - Medical provider. Center POC-Glucose meter 2020-08-23 11:46:00 Test Item Value Reference Range Interpretation Comme nts POC-Glucose Meter (test code = 123 mg/dL 70-110 H : TESTED AT [facility] [address] [facility] 1538) [facility], 770 30: Sales Agent Financial Report Service/Techni david ID = [id number] for IVAN SOW Lab Interpretation (test code = Abnormal 76514-7) [facility] [id number] 11:46:00 Test Item Value Reference Range Interpretation Comments POC-GLUCOSE METER 123 mg/dL 70-110 H : TESTED A T [facility] [address] (IVON) (test code = [facility], 1538) 17616: Sales Agent Financial Report Service/Techni david ID = [id number] for TING OWENS POCT-GLUCOSE [id number] 08:41:00 Test Item Value Reference Range Interpretation Comments POC-GLUCOSE METER 120 mg/dL 70-110 H : TESTED A T [facility] [address] (BEAKER) (test code = [facility], 1538) 18545: Sales Agent Financial Report Service/Techni david ID = [id number] for TING OWENS POCT-GLUCOSE [id number] 20:41:00 Test Item Value Reference Range Interpretation Comments POC-GLUCOSE METER 102 mg/dL 70-110 : TESTED A T [facility] [address] (BEAKER) (test code = [facility], 1538) 15700: Sales Agent Financial Report Service/Techni david ID = [id number] for Re yes Sairy POCT-GLUCOSE [id number] 16:56:00 Test Item Value Reference Range Interpretation Comments POC-GLUCOSE METER 87 mg/dL 70-110 : TESTED A T [facility] [address] (BEAKER) (test code = [facility], 1538) 70443: Sales Agent Financial Report Service/Techni david ID = [id number] for JACOB DE LEON POCT-GLUCOSE [id number] 12:41:00 Test Item Value Reference Range Interpretation Comments POC-GLUCOSE METER 110 mg/dL 70-110 : TESTED A T [facility] [address] (BEAKER) (test code = [facility], 1538) 71489: Sales Agent Financial Report Service/Techni david ID = [id number] for RE JI, OSEAS POCT-GLUCOSE [id number] 08:17:00 Test Item Value Reference Range Interpretation Comments POC-GLUCOSE METER 112 mg/dL 70-110 H : TESTED A T [facility] [address] (BEAKER) (test code = [facility], 1538) 97560: Sales Agent Financial Report Service/Techni david ID = [id number] for OR MATIAS JACOB Comprehensive metabolic [id number] 05:10:00 Test Item Value Reference Range Interpretation Comments Protein, Total (test 6.2 See_Comment [Autom ated code = 2885-2) message] The system which generated this result transmit mike reference range : 6.0 - 8.3 gm/dL . The reference range was not u sed to interpret th is result as normal/abnormal . Albumin (test code = 3.5 g/dL 3.5-5 22588-5) Alkaline Phosphatase 42 U/L 40-150 (test code = 6768-6) Total Bilirubin (test 0.8 mg/dL 0.2-1.2 code = 1974-2) Sodium (test code = 143 meq/L 094-764 0484-2) Potassium (test code 3.3 meq/L 3.5-5.1 L = 2823-3) Chloride (test code = 106 meq/L 98-107 2075-0) CO2 (test code = 26 meq/L 22-29 8-9) BUN (test code = 10 mg/dL 7-21 3094-0) Creatinine (test code 0.80 mg/dL 0.57-1.25 = 2160-0) Glucose (test code = 108 mg/dL 70-105 H 2345-7) Calcium (test code = 8.5 mg/dL 8.4-10.2 64845-9) AST (test code = 63 U/L 5-34 H 1920-8) ALT (test code = 22 U/L 6-55 1742-6) EGFR (test code = 95 mL/min/1.73 [place] [address]-0) NOT ACCURATE CREATININE CLEARANCE IN PREDICTING GLOMERULAR FILTRATION RATE . ESTIMATED GFR I S NOT APPLICABLE FOR DIALYSIS PATIEN TS. SARAH (test code = SARAH) Sales Agent Financial Report Service ID - ADMIN Lab Interpretation Abnormal (test code = 49553-0) [facility] Center[facility]esium2020-[facility] 05:10:00 Test Item Value Reference Range Interpretation Comments Magnesium (test code = 1.9 mg/dL 1.6-2.6 43758-9) SARAH (test code = SARAH) Sales Agent Financial Report Service ID - ADMIN Lab Interpretation (test Normal code = 18122-8) [facility] CenterCOMPREHENSIVE METABOLIC [id number] 05:10:00 Test Item Value Reference Range Interpretation Comments TOTAL PROTEIN 6.2 gm/dL 6.0-8.3 (BEAKER) (test code = 770) ALBUMIN (BEAKER) 3.5 g/dL 3.5-5.0 (test code = 1145) ALKALINE PHOSPHATASE 42 U/L 40-150 (BEAKER) (test code = 346) BILIRUBIN TOTAL 0.8 mg/dL 0.2-1.2 (BEAKER) (test code = 377) SODIUM (BEAKER) (test 143 meq/L 136-145 code = 381) POTASSIUM (BEAKER) 3.3 meq/L 3.5-5.1 L (test code = 379) CHLORIDE (BEAKER) 106 meq/L 98-107 (test code = 382) CO2 (BEAKER) (test 26 meq/L 22-29 code = 355) BLOOD UREA NITROGEN 10 mg/dL 7-21 (BEAKER) (test code = 354) CREATININE (BEAKER) 0.80 mg/dL 0.57-1.25 (test code = 358) GLUCOSE RANDOM 108 mg/dL 70-105 H (BEAKER) (test code = 652) CALCIUM (BEAKER) 8.5 mg/dL 8.4-10.2 (test code = 697) AST (SGOT) (BEAKER) 63 U/L 5-34 H (test code = 353) ALT (SGPT) (BEAKER) 22 U/L 6-55 (test code = 347) EGFR (BEAKER) (test 95 mL/min/1.73 ESTIMA MIKE GFR IS code = 1092) sq m NOT ACCURATE CREATININE CLEARANCE IN PREDICTING GLOMERULAR FILTRATION RATE . ESTIMATED GFR I S NOT APPLICABLE FOR DIALYSIS PATIEN TS. Sales Agent Financial Report Service ID - [id number] 05:10:00 Test Item Value Reference Range Interpretation Comments MAGNESIUM (BEAKER) (test code = 1.9 mg/dL 1.6-2.6 627) Sales Agent Financial Report Service ID - ADMINRAD, CHEST, 1 VIEW, NON [id number] 04:01:00Reason for exam:->s/p cv [facility]DONADO : 1945 Sex: MFINAL REPORT RAD, CHEST, 1 VIEW, NON DEPT INDICATION: s/p cv surgery C OMPARISON: Prior day's exam FINDINGS: Portable frontal view of the chest. IMPRESSION: Support Lines: NoneLungs and pleura: Unchanged airspace and pleural opacities. No pneumothorax.Heart and mediastinum: Stable contours. Additional findings: None. Signed: Wili Barnett MDReport Verified Date/Time: 08/22/2020 04:01:45 XR chest 1 view portable / [id number] 04:01:00Interface, External Ris In - 08/22/2020 4:03 AM CSTFINAL REPORT RAD, CHEST, 1 VIEW, NON DEPT INDICATION: s/p cv surgery COMPARISON: Prior day's exam FINDINGS: Portable frontal view of the chest. IMPRESSION: Support Lines: NoneLungs and pleura: Unchanged airspace and pleural opacities. No pneumothorax.Heart and mediastinum: Stable contours. Additional findings: None. Signed:Wili Barnett MDReport Verified Date/Time: 08/22/2020 04:01:45 [facility]Occ[facility], [id number] 01:55:00 Test Item Value Reference Range Interpretation Comments Occult blood (test code = 2335-8) Negative Negative Lab Interpretation (test code = Normal 61712-7) [facility] CenterOCCULT BLOOD, [id number] 01:55:00 Test Item Value Reference Range Interpretation Comments FECAL OCCULT BLOOD (BEAKER) (test Negative Negative code = 618) POCT-GLUCOSE [id number] 21:27:00 Test Item Value Reference Range Interpretation Comments POC-GLUCOSE METER 100 mg/dL 70-110 : TESTED A T [facility] 6720 (BEAKER) (test code = TWIN DEWEY MD, 1538) 75919: Sales Agent Financial Report Service/Techni david ID = [id number] for Re yes, Sairy POCT-GLUCOSE [id number] 16:46:00 Test Item Value Reference Range Interpretation Comments POC-GLUCOSE METER 102 mg/dL 70-110 : TESTED A T [facility] 6720 (IVON) (test code = TWIN Fritz [facility], 1538) 46964: Sales Agent Financial Report Service/Techni david ID = [id number] for CORONADO JASON ABDUL POCT-GLUCOSE [id number] 13:19:00 Test Item Value Reference Range Interpretation Comments POC-GLUCOSE METER 104 mg/dL 70-110 : TESTED A T [facility] 6720 (BEAKER) (test code = TWIN Fritz [facility], 1538) 23225: Sales Agent Financial Report Service/Techni david ID = [id number] for CORONADO JASON BADUL POCT-GLUCOSE [id number] 07:52:00 Test Item Value Reference Range Interpretation Comments POC-GLUCOSE METER 107 mg/dL 70-110 : TESTED A T [facility] 6720 (IVON) (test code = TWIN Fritz [facility], 1538) 27186: Sales Agent Financial Report Service/Techni david ID = [id number] for CORONADO NNJanie, JASON RAD, CHEST, 1 VIEW, NON [id number] 06:59:00Reason for exam:->s/[facility] : 1945 Sex: MFINAL REPORT RAD, CHEST, 1 VIEW, NON DEPT INDICATION: s/p cv surgery C OMPARISON: Prior day's exam FINDINGS: Portable frontal view of the chest. IMPRESSION: Support Lines: Left chest tube and mediastinal drain have been removed.Lungs and pleura: Increased left lung airspace disease and increased right lung base atelectasis. No pneumothorax.Heart and mediastinum: Stable contours. Additional findings: None. Signed: Wili Barnett MDReport Verified Date/Time: 08/21/2020 06:59:13 COMPREHENSIVE METABOLIC [id number] 05:02:00 Test Item Value Reference Range Interpretation Comments TOTAL PROTEIN 6.1 gm/dL 6.0-8.3 (BEAKER) (test code = 770) ALBUMIN (BEAKER) 3.6 g/dL 3.5-5.0 (test code = 1145) ALKALINE PHOSPHATASE 38 U/L 40-150 L (BEAKER) (test code = 346) BILIRUBIN TOTAL 0.8 mg/dL 0.2-1.2 (BEAKER) (test code = 377) SODIUM (BEAKER) (test 141 meq/L 136-145 code = 381) POTASSIUM (BEAKER) 3.8 meq/L 3.5-5.1 (test code = 379) CHLORIDE (BEAKER) 106 meq/L 98-107 (test code = 382) CO2 (BEAKER) (test 25 meq/L 22-29 code = 355) BLOOD UREA NITROGEN 10 mg/dL 7-21 (BEAKER) (test code = 354) CREATININE (BEAKER) 0.85 mg/dL 0.57-1.25 (test code = 358) GLUCOSE RANDOM 124 mg/dL 70-105 H (BEAKER) (test code = 652) CALCIUM (BEAKER) 8.6 mg/dL 8.4-10.2 (test code = 697) AST (SGOT) (BEAKER) 47 U/L 5-34 H (test code = 353) ALT (SGPT) (BEAKER) 17 U/L 6-55 (test code = 347) EGFR (BEAKER) (test 88 mL/min/1.73 ESTIMA MIKE GFR IS code = 1092) sq m NOT ACCURATE CREATININE CLEARANCE IN PREDICTING GLOMERULAR FILTRATION RATE . ESTIMATED GFR I S NOT APPLICABLE FOR DIALYSIS PATIEN TS. Sales Agent Financial Report Service ID - [id number] 05:02:00 Test Item Value Reference Range Interpretation Comments MAGNESIUM (BEAKER) (test code = 1.9 mg/dL 1.6-2.6 627) Sales Agent Financial Report Service ID - EDASIPrepare Leuko-Red [id number] 23:54:00 Test Item Value Reference Range Interpretation Comments CROSSMATCH (test code = 2264) COMPATIBLE Unit ABO (test code = A Pos 2365991) UNIT NUMBER (test code = [id number] 934-0) Status (test code = 2528196) TX_TIMEINCHART Blood Bank Product (test code RED BLOOD CELLS = 2263) PRODUCT CODE (test code = R4065F12 933-2) [facility] CenterPOCT-GLUCOSE [id number] 22:21:00 Test Item Value Reference Range Interpretation Comments POC-GLUCOSE METER 95 mg/dL 70-110 : TESTED A T [facility] 6720 (BEAKER) (test code = [facility], 1538) 76774: Sales Agent Financial Report Service/Techni david ID = [id number] for Kareen Partida POCT-GLUCOSE [id number] 17:18:00 Test Item Value Reference Range Interpretation Comments POC-GLUCOSE METER 150 mg/dL 70-110 H : TESTED A T [facility] 6720 (BEAKER) (test code = [facility] Lam [facility], 1538) 51133: Sales Agent Financial Report Service/Techni david ID = [id number] for JACOB WALLS Platelet Aggregation: Function [id number] 13:10:00 Test Item Value Reference Range Interpretation Comments Pathologist: (test Carlottacarmen Kyle, code = 2622) (electronic signature) Platelets (test code 93 See_Comment L [Autom ated = 1696) message] The system which generated this result transmitted reference range : 150 - 450 K/CU MM. The referen ce range was not used to interpr et this result as normal/abnormal . ADP (test code = 85 % 62-100 94562-5) Platelet Rich Plasma 68 See_Comment L [Autom ated (test code = 2134) message] The system which generated this result transmitted reference range : 200 - 300 k/cu mm. The referen ce range was not used to interpr et this result as normal/abnormal . Plt. Function Screen Normal Interpretation (test aggregation code = 4655) results with ADP. No evidence of platelet dysfunction or P2Y12 inhibitor effect. SARAH (test code = SARAH) Platelet Function Screen results may be falsely low with platelet counts<75,000/cu mm.Sales Agent Financial Report Service ID - [id number] Lab Interpretation Abnormal (test code = 85729-0) [facility] CenterPLATELET AGGREGATION: FUNCTION [id number] 13:10:00 Test Item Value Reference Range Interpretation Comments [id number] Carlotta Kyle MD ([facility]) (test code = (electronic 2622) signature) PLATELET COUNT AGG 93 K/CU MM 150-450 L (BEAKER) (test code = 2656) ADP (AKER) (test code 85 % 62-100 = 4654) PLATELET RICH 68 k/cu mm 200-300 L PLASMA(AKER) (test code = 2134) PLATELET FUNCTION SCREEN Normal aggregation INTERPRETATION (AKER) results with ADP. No (test code = 4655) evidence of platelet dysfunction or P2Y12 inhibitor effect. Platelet Function Screen results may be falsely low with platelet counts<75,000/cu mm.Sales Agent Financial Report Service ID- TamekaLactic acid, [id number] 12:26:00 Test Item Value Reference Range Interpretation Comments Lactate, Venous (test code 2.89 mmol/L 0.5-2.2 H = 2872) SARAH (test code = SARAH) Sales Agent Financial Report Service ID - TAMIKO C Lab Interpretation (test Abnormal code = 63330-1) [facility] CenterLACTIC ACID, [id number] 12:26:00 Test Item Value Reference Range Interpretation Comments LACTATE BLOOD VENOUS (2) (AKER) 2.89 mmol/L 0.50-2.20 H (test code = 2872) Sales Agent Financial Report Service ID - TAMIKO CPOCT-GLUCOSE [id number] 12:22:00 Test Item Value Reference Range Interpretation Comments POC-GLUCOSE METER 160 mg/dL 70-110 H : TESTED A T [facility] 6720 ([facility]) (test code = TWIN Fritz [facility], 1538) 63388: Sales Agent Financial Report Service/Techni david ID = [id number] for OR JACOB SALCEDO [id number] 07:59:00 Test Item Value Reference Range Interpretation Comments Phosphorus (test code = 2.0 mg/dL 2.3-4.7 L 2777-1) SARAH (test code = SARAH) Sales Agent Financial Report Service ID - REID L Lab Interpretation (test Abnormal code = 54696-0) [facility] CenterCOMPREHENSIVE METABOLIC [id number] 07:59:00 Test Item Value Reference Range Interpretation Comments TOTAL PROTEIN 6.1 gm/dL 6.0-8.3 (BEAKER) (test code = 770) ALBUMIN (BEAKER) 3.8 g/dL 3.5-5.0 (test code = 1145) ALKALINE PHOSPHATASE 34 U/L 40-150 L (BEAKER) (test code = 346) BILIRUBIN TOTAL 0.8 mg/dL 0.2-1.2 (BEAKER) (test code = 377) SODIUM (BEAKER) (test 140 meq/L 136-145 code = 381) POTASSIUM (BEAKER) 4.0 meq/L 3.5-5.1 (test code = 379) CHLORIDE (BEAKER) 107 meq/L 98-107 (test code = 382) CO2 (BEAKER) (test 23 meq/L 22-29 code = 355) BLOOD UREA NITROGEN 12 mg/dL 7-21 (BEAKER) (test code = 354) CREATININE (BEAKER) 1.06 mg/dL 0.57-1.25 (test code = 358) GLUCOSE RANDOM 142 mg/dL 70-105 H (BEAKER) (test code = 652) CALCIUM (BEAKER) 8.3 mg/dL 8.4-10.2 L (test code = 697) AST (SGOT) (BEAKER) 38 U/L 5-34 H (test code = 353) ALT (SGPT) (BEAKER) 12 U/L 6-55 (test code = 347) EGFR (BEAKER) (test 68 mL/min/1.73 ESTIMA MIKE GFR IS code = 1092) sq m NOT ACCURATE CREATININE CLEARANCE IN PREDICTING GLOMERULAR FILTRATION RATE . ESTIMATED GFR I S NOT APPLICABLE FOR DIALYSIS PATIEN TS. Sales Agent Financial Report Service ID - REID [id number] 07:59:00 Test Item Value Reference Range Interpretation Comments MAGNESIUM (BEAKER) (test code = 1.9 mg/dL 1.6-2.6 627) Sales Agent Financial Report Service ID - REID [id number] 07:59:00 Test Item Value Reference Range Interpretation Comments PHOSPHORUS (BEAKER) (test code = 2.0 mg/dL 2.3-4.7 L 604) Sales Agent Financial Report Service ID - REID LRAD, CHEST, 1 VIEW, NON [id number] 07:52:00Reason for exam:->s/p cv [facility] : 1945 Sex: MFINAL REPORT RAD, CHEST, 1 VIEW, NON DEPT INDICATION: s/p cv surgery C OMPARISON: Prior day's exam FINDINGS: Portable frontal view of the chest. IMPRESSION: Limited by underpenetrationSupport Lines: Right IJ central venous catheter has been removed. Remaining support hardware is stable. Lungs and pleura: Improved aeration. Left greater than right subsegmental atelectasis. No pneumothorax.Heart and mediastinum: Stable contours. Stable surgical changes.Additional findings: None. Signed: JR Casillas Robert MDReport Verified Date/Time: 08/20/2020 07:52:10 Reading Location: [facility] Radiology Reading Room POCT-GLUCOSE [id number] 07:47:00 Test Item Value Reference Range Interpretation Comments POC-GLUCOSE METER 139 mg/dL 70-110 H : TESTED A T [facility] 6720 (BEAKER) (test code = TWIN Fritz DEWEY MD, 1538) 40771: Sales Agent Financial Report Service/Techni david ID = [id number] for OR JACOB SALCEDO CBC (Hemogram only)2020-08-20 04:34:00 Test Item Value Reference Range Interpretation Comments WBC (test code = 6690-2) 14.7 See_Comment H [A utomated message] The system [employer] generated this result transmitted ref erence range: 3.5 - 10 .5 K/L. The refe rence range was not u sed to interpret this result as normal/abnor mal. RBC (test code = 789-8) 2.49 See_Comment L [Au tomated message] The system [employer] generated this result transmitted ref erence range: 4.63 - 6 .08 M/L. The refe rence range was not u sed to interpret this result as normal/abnor mal. MCHC (test code = 786-4) 33.2 See_Comment L [A utomated message] The system [employer] generated this result transmitted ref erence range: 32.3 - 3 6.5 GM/DL. The refe rence range was not u sed to interpret this result as normal/abnor mal. Hematocrit (test code = 25.9 % 40.1-51 L 4544-3) MCV (test code = 787-2) 104.0 fL 79-92.2 H MCH (test code = 785-6) 34.5 pg 25.7-32.2 H RDW (test code = 788-0) 15.5 % 11.6-14.4 H Platelets (test code = 115 See_Comment L [Aut omated message] 777-3) The system [employer] generated this result transmitted ref erence range: 150 - 45 0 K/CU MM. The referen ce range was not u sed to interpret this result as normal/abnor mal. MPV (test code = 12.6 fL 9.4-12.4 H 17471-9) nRBC (test code = 413) 0 See_Comment [Aut omated message] The system [employer] generated this result transmitted ref erence range: 0 - 0 /1 00 WBC. The refere nce range was not u sed to interpret this result as normal/abnor mal. Lab Interpretation (test Abnormal code = 88498-2) [facility] (HEMOGRAM ONLY)2020-08-20 04:34:00 Test Item Value Reference Range Interpretation Comments WHITE BLOOD CELL COUNT (BEAKER) 14.7 K/ L 3.5-10.5 H (test code = 775) RED BLOOD CELL COUNT (BEAKER) 2.49 M/ L 4.63-6.08 L (test code = 761) HEMOGLOBIN (BEAKER) (test code = 8.6 GM/DL 13.7-17.5 L 410) HEMATOCRIT (BEAKER) (test code = 25.9 % 40.1-51.0 L 411) MEAN CORPUSCULAR VOLUME (BEAKER) 104.0 fL 79.0-92.2 H (test code = 753) MEAN CORPUSCULAR HEMOGLOBIN 34.5 pg 25.7-32.2 H (BEAKER) (test code = 751) MEAN CORPUSCULAR HEMOGLOBIN CONC 33.2 GM/DL 32.3-36.5 (BEAKER) (test code = 752) RED CELL DISTRIBUTION WIDTH 15.5 % 11.6-14.4 H (BEAKER) (test code = 412) PLATELET COUNT (BEAKER) (test 115 K/CU MM 150-450 L code = 756) MEAN PLATELET VOLUME (BEAKER) 12.6 fL 9.4-12.4 H (test code = 754) NUCLEATED RED BLOOD CELLS 0 /100 WBC 0-0 (BEAKER) (test code = 413) HGB/HCT (H&H)-Stat [id number] 04:20:00 Test Item Value Reference Range Interpretation Comments Hemoglobin (test code 9.6 See_Comment L [Auto mated = 786-4) message] The system which generated this result transmitted reference range : 13.0 - 16.8 GM/DL. The reference range was not used to interpret this result as normal/abnormal . Hematocrit (test code 28.0 % 40-50 L = 4544-3) SARAH (test code = SARAH) Post extubation Lab Interpretation Abnormal (test code = 61783-1) [facility] CenterGlucose-Stat [id number] 04:20:00 Test Item Value Reference Range Interpretation Comments Glucose (test code = 2345-7) 129 mg/dL 70-110 H SARAH (test code = SARAH) Post extubation Lab Interpretation (test code Abnormal = 40387-8) [facility] CenterGLUCOSE-STAT [id number] 04:20:00 Test Item Value Reference Range Interpretation Comments GLUCOSE RANDOM (BEAKER) (test code 129 mg/dL 70-110 H = 652) Post extubationHGB/HCT (H&H) - STAT [id number] 04:20:00 Test Item Value Reference Range Interpretation Comments HEMOGLOBIN (BEAKER) (test code = 9.6 GM/DL 13.0-16.8 L 410) HEMATOCRIT (BEAKER) (test code = 28.0 % 40.0-50.0 L 411) Post [id number] 04:14:00 Test Item Value Reference Range Interpretation Comments Fibrinogen (test code = 3255-7) 478 mg/dl 225-434 H Lab Interpretation (test code = Abnormal 63426-5) [facility] CenteraPTT2020-12-11 04:14:00 Test Item Value Reference Range Interpretation Comments PTT (test code = 57.6 See_Comment H [Automated message] 52498-0) The system [employer] generated this result transmitted ref erence range: 22.5 - 3 6.0 seconds. The reference range was not used to int erpret this result as normal/abnormal . Lab Interpretation (test Abnormal code = 65058-0) [facility] CenterFIBRINOGEN2020-12-11 04:14:00 Test Item Value Reference Range Interpretation Comments FIBRINOGEN LEVEL (BEAKER) (test 478 mg/dl 225-434 H code = 658) [id number] 04:14:00 Test Item Value Reference Range Interpretation Comments PARTIAL THROMBOPLASTIN TIME 57.6 seconds 22.5-36.0 H (BEAKER) (test code = 760) Prothromin time/[id number] 04:13:00 Test Item Value Reference Interpretation Comments Range Protime (test code = 14.8 See_Comment H [Autom ated 5902-2) message] The system which generated this result transmitted reference range : 11.9 - 14.2 seconds. The reference range was not used to interpret this result as normal/abnormal . INR (test code = 1.20 See_Comment [Automated 8851-6) message] The system which generated this result transmitted reference range : <=5.90. The reference range was not used to interpret this result as normal/abnormal . SARAH (test code = Effective 02/05/2019: SARAH) PT Reference Range ChangeNew: 11.9-14.2 Previous: 11.7-14.7 RECOMMENDED COUMADIN/WARFARIN INR THERAPY RANGESSTANDARD DOSE: 2.0-3.0 Includes: PROPHYLAXIS for venous thrombosis, systemic embolization; TREATMENT for venous thrombosis and/or pulmonary embolus.HIGH RISK: Target INR is 2.5-3.5 for patients wiht mechanical heart valves. Lab Interpretation Abnormal (test code = 75991-5) [facility] CenterPROTHROMBIN TIME/[id number] 04:13:00 Test Item Value Reference Range Interpretation Comments PROTIME (BEAKER) (test code = 14.8 seconds 11.9-14.2 H 759) INR (BEAKER) (test code = 370) 1.20 <=5.90 Effective 02/05/2019: PT Reference Range ChangeNew: 11.9-14.2 Previous: 11.7- 14.7RECOMMENDED COUMADIN/WARFARIN INR THERAPY RANGESSTANDARD DOSE: 2.0-3.0 Includes: PROPHYLAXIS for venous thrombosis, systemic embolization; TREATMENT for venous thrombosis and/or pulmonary embolus.HIGH RISK: Target INR is2.5-3.5 for patients wiht mechanical heart valves.Sodium Na-Stat [id number] 04:10:00 Test Item Value Reference Range Interpretation Comments Sodium (test code = 2951-2) 140 meq/L 136-145 SARAH (test code = SARAH) Post extubation Lab Interpretation (test code Normal = 80254-7) [facility] CenterPotassium-Stat [id number] 04:10:00 Test Item Value Reference Range Interpretation Comments Potassium (test code = 4.2 meq/L 3.6-5.5 2823-3) SARAH (test code = SARAH) Post extubation Lab Interpretation (test code Normal = 43507-8) [facility] [id number] 04:10:00 Test Item Value Reference Range Interpretation Comments SODIUM (BEAKER) (test code = 381) 140 meq/L 136-145 Post extubationPOTASSIUM-STAT [id number] 04:10:00 Test Item Value Reference Range Interpretation Comments POTASSIUM (BEAKER) (test code = 4.2 meq/L 3.6-5.5 379) Post extubationPOCT-GLUCOSE [id number] 00:10:00 Test Item Value Reference Range Interpretation Comments POC-GLUCOSE METER 158 mg/dL 70-110 H : TESTED A T [facility] 6720 (BEAKER) (test code = TWIN Fritz [facility], 1538) 47008: Sales Agent Financial Report Service/Techni david ID = [id number] for LEXUS MCGINNIS [id number] 18:54:00 Test Item Value Reference Range Interpretation Comments PARTIAL THROMBOPLASTIN TIME 76.9 seconds 22.5-36.0 H (IVON) (test code = 760) Thromboelastograph (TEG)2020-08-19 18:04:00 Test Item Value Reference Range Interpretation Comments TEG Activated Clotting 4.7 See_Comment [Aut omated message] Time (test code = The system which 85334-0) generated this result transmitted ref erence range: 4.0 - 7. 0 minutes. The re ference range was not u sed to interpret this result as normal/abnor mal. TEG Fibrinogen Activity 71.4 See_Comment [Au tomated message] (test code = 25428-9) The sy stem which generated this result transmitted ref erence range: 61.0 - 7 3.0 degrees. The re ference range was not u sed to interpret this result as normal/abnor mal. TEG Platelet Aggregation 63.9 See_Comment [A utomated message] (test code = 01216-4) The sy stem which generated this result transmitted ref erence range: 55.0 - 6 5.0 MM. The reference r debra was not used to interpret this result as normal/abnor mal. TEG Fibrinolysis (test 0.4 % 0-5 code = 48774-7) TEG-H Activated Clotting 5.1 See_Comment [A utomated message] Time (test code = 1411) The system which generated this result transmitted ref erence range: 4.0 - 7. 0 minutes. The re ference range was not u sed to interpret this result as normal/abnor mal. TEG-H Fibrinogen Activity 67.8 See_Comment [ Automated message] (test code = 1412) The syste m which generated this result transmitted ref erence range: 61.0 - 7 3.0 degrees. The re ference range was not u sed to interpret this result as normal/abnor mal. TEG-H Platelet 63.2 See_Comment [Automated m essage] Aggregation (test code = The system which 1413) generated this result transmitted ref erence range: 55.0 - 6 5.0 MM. The reference r debra was not used to interpret this result as normal/abnor mal. TEG-H Fibrinolysis (test 0.6 % 0-5 code = 1414) Lab Interpretation (test Normal code = 56984-1) [facility] CenterTHROMBOELASTOGRAPH (TEG)2020-08-19 18:04:00 Test Item Value Reference Range Interpretation Comments TEG ACTIVATED CLOTTING TIME 4.7 minutes 4.0-7.0 (BEAKER) (test code = 1407) TEG FIBRINOGEN ACTIVITY (BEAKER) 71.4 degrees 61.0-73.0 (test code = 1408) TEG PLT. AGGREGATION (BEAKER) 63.9 MM 55.0-65.0 (test code = 1409) TEG FIBRINOLYSIS (BEAKER) (test 0.4 % 0.0-5.0 code = 1410) [facility] ACTIVATED CLOTTING TIME 5.1 minutes 4.0-7.0 (BEAKER) (test code = 1411) [facility] FIBRINOGEN ACTIVITY (BEAKER) 67.8 degrees 61.0-73.0 (test code = 1412) [facility] PLT. AGGREGATION (BEAKER) 63.2 MM 55.0-65.0 (test code = 1413) [facility] FIBRINOLYSIS (BEAKER) (test 0.6 % 0.0-5.0 code = 1414) [id number] 16:52:00 Test Item Value Reference Range Interpretation Comments PARTIAL THROMBOPLASTIN TIME 74.0 seconds 22.5-36.0 H (BEAKER) (test code = 760) [id number] 16:51:00 Test Item Value Reference Range Interpretation Comments FIBRINOGEN LEVEL (BEAKER) (test 338 mg/dl 225-434 code = 658) PROTHROMBIN TIME/[id number] 16:50:00 Test Item Value Reference Range Interpretation Comments PROTIME (BEAKER) (test code = 15.3 seconds 11.9-14.2 H 759) INR (BEAKER) (test code = 370) 1.24 <=5.90 Effective 02/05/2019: PT Reference Range ChangeNew: 11.9-14.2 Previous: 11.7- 14.7RECOMMENDED COUMADIN/WARFARIN INR THERAPY RANGESSTANDARD DOSE: 2.0-3.0 Includes: PROPHYLAXIS for venous thrombosis, systemic embolization; TREATMENT for venous thrombosis and/or pulmonary embolus.HIGH RISK: Target INR is2.5-3.5 for patients wiht mechanical heart valves.[id number] 11:52:00 Test Item Value Reference Range Interpretation Comments PARTIAL THROMBOPLASTIN TIME 90.8 seconds 22.5-36.0 H (BEAKER) (test code = 760) CBC with platelet count + automated [id number] 11:46:00 Test Item Value Reference Range Interpretation Comments WBC (test code = 6690-2) 10.9 See_Comment H [A utomated message] The system [employer] generated this result transmitted ref erence range: 3.5 - 10 .5 K/L. The refe rence range was not u sed to interpret this result as normal/abnor mal. RBC (test code = 789-8) 2.68 See_Comment L [Au tomated message] The system [employer] generated this result transmitted ref erence range: 4.63 - 6 .08 M/L. The refe rence range was not u sed to interpret this result as normal/abnor mal. MCHC (test code = 786-4) 33.0 See_Comment L [A utomated message] The system [employer] generated this result transmitted ref erence range: 32.3 - 3 6.5 GM/DL. The refe rence range was not u sed to interpret this result as normal/abnor mal. Hematocrit (test code = 27.3 % 40.1-51 L 4544-3) MCV (test code = 787-2) 101.9 fL 79-92.2 H MCH (test code = 785-6) 33.6 pg 25.7-32.2 H RDW (test code = 788-0) 14.8 % 11.6-14.4 H Platelets (test code = 102 See_Comment L [Aut omated message] 777-3) The system [employer] generated this result transmitted ref erence range: 150 - 45 0 K/CU MM. The referen ce range was not u sed to interpret this result as normal/abnor mal. MPV (test code = 11.6 fL 9.4-12.4 14438-6) nRBC (test code = 413) 0 See_Comment [Aut omated message] The system [employer] generated this result transmitted ref erence range: 0 - 0 /1 00 WBC. The refere nce range was not u sed to interpret this result as normal/abnor mal. % Neutros (test code = 81 % 429) % Lymphs (test code = 8 % 430) % Monos (test code = 10 % 431) % Eos (test code = 432) 0 % % Baso (test code = 437) 0 % # Neutros (test code = 8.84 See_Comment H [Aut omated message] 670) The system [employer] generated this result transmitted ref erence range: 1.78 - 5 .38 K/L. The refe rence range was not u sed to interpret this result as normal/abnor mal. # Lymphs (test code = 0.87 See_Comment L [Auto mated message] 414) The system [employer] generated this result transmitted ref erence range: 1.32 - 3 .57 K/L. The refe rence range was not u sed to interpret this result as normal/abnor mal. # Monos (test code = 1.07 See_Comment H [Autom ated message] 415) The system [employer] generated this result transmitted ref erence range: 0.30 - 0 .82 K/L. The refe rence range was not u sed to interpret this result as normal/abnor mal. # Eos (test code = 416) 0.00 See_Comment L [Au tomated message] The system [employer] generated this result transmitted ref erence range: 0.04 - 0 .54 K/L. The refe rence range was not u sed to interpret this result as normal/abnor mal. # Baso (test code = 417) 0.03 See_Comment [A utomated message] The system [employer] generated this result transmitted ref erence range: 0.01 - 0 .08 K/L. The refe rence range was not u sed to interpret this result as normal/abnor mal. Immature 0 % 0-1 Granulocytes-Relative (test code = 2801) Lab Interpretation (test Abnormal code = 35281-1) [facility] W/PLT COUNT & AUTO [id number] 11:46:00 Test Item Value Reference Range Interpretation Comments WHITE BLOOD CELL COUNT (BEAKER) 10.9 K/ L 3.5-10.5 H (test code = 775) RED BLOOD CELL COUNT (BEAKER) 2.68 M/ L 4.63-6.08 L (test code = 761) HEMOGLOBIN (BEAKER) (test code = 9.0 GM/DL 13.7-17.5 L 410) HEMATOCRIT (BEAKER) (test code = 27.3 % 40.1-51.0 L 411) MEAN CORPUSCULAR VOLUME (BEAKER) 101.9 fL 79.0-92.2 H (test code = 753) MEAN CORPUSCULAR HEMOGLOBIN 33.6 pg 25.7-32.2 H (BEAKER) (test code = 751) MEAN CORPUSCULAR HEMOGLOBIN CONC 33.0 GM/DL 32.3-36.5 (BEAKER) (test code = 752) RED CELL DISTRIBUTION WIDTH 14.8 % 11.6-14.4 H (BEAKER) (test code = 412) PLATELET COUNT (BEAKER) (test 102 K/CU MM 150-450 L code = 756) MEAN PLATELET VOLUME (BEAKER) 11.6 fL 9.4-12.4 (test code = 754) NUCLEATED RED BLOOD CELLS 0 /100 WBC 0-0 (BEAKER) (test code = 413) NEUTROPHILS RELATIVE PERCENT 81 % (BEAKER) (test code = 429) LYMPHOCYTES RELATIVE PERCENT 8 % (BEAKER) (test code = 430) MONOCYTES RELATIVE PERCENT 10 % (BEAKER) (test code = 431) EOSINOPHILS RELATIVE PERCENT 0 % (BEAKER) (test code = 432) BASOPHILS RELATIVE PERCENT 0 % (BEAKER) (test code = 437) NEUTROPHILS ABSOLUTE COUNT 8.84 K/ L 1.78-5.38 H (BEAKER) (test code = 670) LYMPHOCYTES ABSOLUTE COUNT 0.87 K/ L 1.32-3.57 L (BEAKER) (test code = 414) MONOCYTES ABSOLUTE COUNT (BEAKER) 1.07 K/ L 0.30-0.82 H (test code = 415) EOSINOPHILS ABSOLUTE COUNT 0.00 K/ L 0.04-0.54 L (BEAKER) (test code = 416) BASOPHILS ABSOLUTE COUNT (BEAKER) 0.03 K/ L 0.01-0.08 (test code = 417) IMMATURE GRANULOCYTES-RELATIVE 0 % 0-1 PERCENT (BEAKER) (test code = 2801) POCT-GLUCOSE [id number] 11:33:00 Test Item Value Reference Range Interpretation Comments POC-GLUCOSE METER 171 mg/dL 70-110 H : TESTED A T [facility] 6720 (BEAKER) (test code = [place], 1538) [address]: Sales Agent Financial Report Service/Techni david ID = [id number] for Be rki, Meti RAD, CHEST, 1 VIEW, NON [id number] 05:47:00Reason for exam:->s/p cv [facility] : 1945 Sex: MFINAL REPORT RAD, CHEST, 1 VIEW, NON DEPT INDICATION: s/p cv surgery C OMPARISON: Prior day's exam FINDINGS: Portable frontal view of the chest. IMPRESSION: Support Lines: ET tube and enteric tube have been removed. Otherwise stable support apparatus. Lungs and pleura:Unchanged airspace and pleural opacities. No pneumothorax.Heart and mediastinum: Stable contours. Add itional findings: None. Signed: Wili Barnett Verified Date/Time: 08/19/2020 05:47:41 COMPREHENSIVE METABOLIC [id number] 05:46:00 Test Item Value Reference Range Interpretation Comments TOTAL PROTEIN 5.8 gm/dL 6.0-8.3 L (BEAKER) (test code = 770) ALBUMIN (BEAKER) 4.1 g/dL 3.5-5.0 (test code = 1145) ALKALINE PHOSPHATASE 29 U/L 40-150 L (BEAKER) (test code = 346) BILIRUBIN TOTAL 0.9 mg/dL 0.2-1.2 (BEAKER) (test code = 377) SODIUM (BEAKER) (test 146 meq/L 136-145 H code = 381) POTASSIUM (BEAKER) 4.0 meq/L 3.5-5.1 (test code = 379) CHLORIDE (BEAKER) 112 meq/L 98-107 H (test code = 382) CO2 (BEAKER) (test 19 meq/L 22-29 L code = 355) BLOOD UREA NITROGEN 13 mg/dL 7-21 (BEAKER) (test code = 354) CREATININE (BEAKER) 1.14 mg/dL 0.57-1.25 (test code = 358) GLUCOSE RANDOM 141 mg/dL 70-105 H (BEAKER) (test code = 652) CALCIUM (BEAKER) 7.6 mg/dL 8.4-10.2 L (test code = 697) AST (SGOT) (BEAKER) 28 U/L 5-34 (test code = 353) ALT (SGPT) (BEAKER) 10 U/L 6-55 (test code = 347) EGFR (BEAKER) (test 63 mL/min/1.73 ESTIMA MIKE GFR IS code = 1092) sq m NOT ACCURATE CREATININE CLEARANCE IN PREDICTING GLOMERULAR FILTRATION RATE . ESTIMATED GFR I S NOT APPLICABLE FOR DIALYSIS PATIEN TS. Sales Agent Financial Report Service ID - DEANNA [id number] 04:38:00 Test Item Value Reference Range Interpretation Comments MAGNESIUM (BEAKER) (test code = 1.8 mg/dL 1.6-2.6 627) Sales Agent Financial Report Service ID - DEANNA [id number] 04:38:00 Test Item Value Reference Range Interpretation Comments PHOSPHORUS (BEAKER) (test code = 3.0 mg/dL 2.3-4.7 604) Sales Agent Financial Report Service ID - DEANNA [id number] 04:38:00 Test Item Value Reference Range Interpretation Comments PARTIAL THROMBOPLASTIN TIME 143.8 seconds 22.5-36.0 H (BEAKER) (test code = 760) Lactic Acid, [id number] 04:25:00 Test Item Value Reference Range Interpretation Comments Lactate, Art (test code = 0.9 mmol/L 0.5-2.2 2874) SARAH (test code = SARAH) Sales Agent Financial Report Service ID - DEANNA Guerrier Lab Interpretation (test Normal code = 46070-5) [facility], [id number] 04:25:00 Test Item Value Reference Range Interpretation Comments LACTATE BLOOD ARTERIAL (2) 0.9 mmol/L 0.5-2.2 (BEAKER) (test code = 2874) Sales Agent Financial Report Service ID - DEANNA Martinezood gas, [id number] 04:16:00 Test Item Value Reference Range Interpretation Comments pH, Arterial (test code 7.43 7.35-7.45 = 2744-1) pCO2, Arterial (test 35 See_Comment [Autom ated code = 2019-8) message] The system which generated this result transmitted reference range : 35 - 45 mm Hg. The reference range was not used to interpret this result as normal/abnormal . pO2, Arterial (test 122 See_Comment H [Automa mike code = 2703-7) message] The system which generated this result transmitted reference range : 80 - 90 mm Hg. The reference range was not used to interpret this result as normal/abnormal . O2 Sat, Arterial (test 98.5 % 96-97 H code = 2708-6) HCO3, Arterial (test 22 mmol/L 21-29 code = 1960-4) Base Excess, Arterial -1.7 mmol/L -2-3 (test code = 1925-7) Patient Temperature 37.2 (test code = 8310-5) FIO2 (test code = 1819) 32 Lab Interpretation Abnormal (test code = 11254-0) [facility], [id number] 04:16:00 Test Item Value Reference Range Interpretation Comments Calcium, Ion (test code = 1994-3) 0.97 mmol/L 1.12-1.27 L pH, Blood (test code = 41627-4) 7.39 Lab Interpretation (test code = Abnormal 69880-8) [facility], [id number] 04:16:00 Test Item Value Reference Range Interpretation Comments CALCIUM IONIZED (BEAKER) (test 0.97 mmol/L 1.12-1.27 L code = 698) PH, BLOOD (BEAKER) (test code = 7.39 1810) BLOOD GAS, [id number] 04:16:00 Test Item Value Reference Range Interpretation Comments PH ARTERIAL (BEAKER) (test code = 7.43 7.35-7.45 383) PCO2 ARTERIAL (BEAKER) (test code 35 mm Hg 35-45 = 384) PO2 ARTERIAL (BEAKER) (test code 122 mm Hg 80-90 H = 385) O2 SATURATION ARTERIAL (BEAKER) 98.5 % 96.0-97.0 H (test code = 386) HCO3 ARTERIAL (BEAKER) (test code 22 mmol/L 21-29 = 388) BASE EXCESS ARTERIAL (BEAKER) -1.7 mmol/L -2.0-3.0 (test code = 387) PATIENT TEMPERATURE (BEAKER) 37.2 (test code = 1818) FIO2 (BEAKER) (test code = 1819) 32.0 GLUCOSE-STAT [id number] 04:16:00 Test Item Value Reference Range Interpretation Comments GLUCOSE RANDOM (BEAKER) (test code 134 mg/dL 70-110 H = 652) HGB/HCT (H&H) - STAT [id number] 04:16:00 Test Item Value Reference Range Interpretation Comments HEMOGLOBIN (BEAKER) (test code = 7.7 GM/DL 13.0-16.8 L 410) HEMATOCRIT (BEAKER) (test code = 23.0 % 40.0-50.0 L 411) CBC (HEMOGRAM ONLY)[id number] 04:14:00 Test Item Value Reference Range Interpretation Comments WHITE BLOOD CELL COUNT (BEAKER) 8.7 K/ L 3.5-10.5 (test code = 775) RED BLOOD CELL COUNT (BEAKER) 2.13 M/ L 4.63-6.08 L (test code = 761) HEMOGLOBIN (BEAKER) (test code = 7.4 GM/DL 13.7-17.5 L 410) HEMATOCRIT (BEAKER) (test code = 22.6 % 40.1-51.0 L 411) MEAN CORPUSCULAR VOLUME (BEAKER) 106.1 fL 79.0-92.2 H (test code = 753) MEAN CORPUSCULAR HEMOGLOBIN 34.7 pg 25.7-32.2 H (BEAKER) (test code = 751) MEAN CORPUSCULAR HEMOGLOBIN CONC 32.7 GM/DL 32.3-36.5 (BEAKER) (test code = 752) RED CELL DISTRIBUTION WIDTH 11.7 % 11.6-14.4 (BEAKER) (test code = 412) PLATELET COUNT (BEAKER) (test 100 K/CU MM 150-450 L code = 756) MEAN PLATELET VOLUME (BEAKER) 11.5 fL 9.4-12.4 (test code = 754) NUCLEATED RED BLOOD CELLS 0 /100 WBC 0-0 (BEAKER) (test code = 413) Oxygen saturation, [id number] 04:07:00 Test Item Value Reference Range Interpretation Comments O2 Saturation (Measured) (test code = 70.5 % 43047-8) [facility] [id number] 04:07:00 Test Item Value Reference Range Interpretation Comments SODIUM (BEAKER) (test code = 381) 142 meq/L 136-145 POTASSIUM-STAT [id number] 04:07:00 Test Item Value Reference Range Interpretation Comments POTASSIUM (BEAKER) (test code = 3.8 meq/L 3.6-5.5 379) OXYGEN SATURATION, [id number] 04:07:00 Test Item Value Reference Range Interpretation Comments O2 SATURATION (MEASURED) (BEAKER) 70.5 % (test code = 1455) [id number] 22:45:00 Test Item Value Reference Range Interpretation Comments PARTIAL THROMBOPLASTIN TIME 87.7 seconds 22.5-36.0 H (BEAKER) (test code = 760) [id number] 22:44:00 Test Item Value Reference Range Interpretation Comments FIBRINOGEN LEVEL (BEAKER) (test 208 mg/dl 225-434 L code = 658) PROTHROMBIN [id number] 22:43:00 Test Item Value Reference Range Interpretation Comments PROTIME (BEAKER) (test code = 15.8 seconds 11.9-14.2 H 759) INR (BEAKER) (test code = 370) 1.30 <=5.90 Effective 02/05/2019: PT Reference Range ChangeNew: 11.9-14.2 Previous: 11.7- 14.7RECOMMENDED COUMADIN/WARFARIN INR THERAPY RANGESSTANDARD DOSE: 2.0-3.0 Includes: PROPHYLAXIS for venous thrombosis, systemic embolization; TREATMENT for venous thrombosis and/or pulmonary embolus.HIGH RISK: Target INR is2.5-3.5 for patients wiht mechanical heart valves.LACTIC ACID, [id number] 22:42:00 Test Item Value Reference Range Interpretation Comments LACTATE BLOOD ARTERIAL (2) 1.1 mmol/L 0.5-2.2 (BEAKER) (test code = 2874) Sales Agent Financial Report Service ID - BSSODIUM NA-STAT [id number] 22:30:00 Test Item Value Reference Range Interpretation Comments SODIUM (BEAKER) (test code = 381) 137 meq/L 136-145 POTASSIUM-STAT [id number] 22:30:00 Test Item Value Reference Range Interpretation Comments POTASSIUM (BEAKER) (test code = 4.0 meq/L 3.6-5.5 379) BLOOD GAS, [id number] 22:30:00 Test Item Value Reference Range Interpretation Comments PH ARTERIAL (BEAKER) (test code = 7.40 7.35-7.45 383) PCO2 ARTERIAL (BEAKER) (test code 39 mm Hg 35-45 = 384) PO2 ARTERIAL (BEAKER) (test code 123 mm Hg 80-90 H = 385) O2 SATURATION ARTERIAL (BEAKER) 98.4 % 96.0-97.0 H (test code = 386) HCO3 ARTERIAL (BEAKER) (test code 24 mmol/L 21-29 = 388) BASE EXCESS ARTERIAL (BEAKER) -1.1 mmol/L -2.0-3.0 (test code = 387) PATIENT TEMPERATURE (BEAKER) 37.3 (test code = 1818) FIO2 (BEAKER) (test code = 1819) 40.0 GLUCOSE-STAT [id number] 22:30:00 Test Item Value Reference Range Interpretation Comments GLUCOSE RANDOM (BEAKER) (test code 146 mg/dL 70-110 H = 652) HGB/HCT (H&H) - STAT [id number] 22:30:00 Test Item Value Reference Range Interpretation Comments HEMOGLOBIN (BEAKER) (test code = 8.2 GM/DL 13.0-16.8 L 410) HEMATOCRIT (BEAKER) (test code = 24.0 % 40.0-50.0 L 411) LACTIC ACID, [id number] 21:37:00 Test Item Value Reference Range Interpretation Comments LACTATE BLOOD ARTERIAL (2) 0.9 mmol/L 0.5-2.2 (BEAKER) (test code = 2874) Sales Agent Financial Report Service ID - BSCBC W/PLT COUNT & AUTO [id number] 21:31:00 Test Item Value Reference Range Interpretation Comments WHITE BLOOD CELL COUNT (BEAKER) 11.9 K/ L 3.5-10.5 H (test code = 775) RED BLOOD CELL COUNT (BEAKER) 2.28 M/ L 4.63-6.08 L (test code = 761) HEMOGLOBIN (BEAKER) (test code = 8.0 GM/DL 13.7-17.5 L 410) HEMATOCRIT (BEAKER) (test code = 24.1 % 40.1-51.0 L 411) MEAN CORPUSCULAR VOLUME (BEAKER) 105.7 fL 79.0-92.2 H (test code = 753) MEAN CORPUSCULAR HEMOGLOBIN 35.1 pg 25.7-32.2 H (BEAKER) (test code = 751) MEAN CORPUSCULAR HEMOGLOBIN CONC 33.2 GM/DL 32.3-36.5 (BEAKER) (test code = 752) RED CELL DISTRIBUTION WIDTH 11.7 % 11.6-14.4 (BEAKER) (test code = 412) PLATELET COUNT (BEAKER) (test 107 K/CU MM 150-450 L code = 756) MEAN PLATELET VOLUME (BEAKER) 11.3 fL 9.4-12.4 (test code = 754) NUCLEATED RED BLOOD CELLS 0 /100 WBC 0-0 (BEAKER) (test code = 413) NEUTROPHILS RELATIVE PERCENT 82 % (BEAKER) (test code = 429) LYMPHOCYTES RELATIVE PERCENT 9 % (BEAKER) (test code = 430) MONOCYTES RELATIVE PERCENT 8 % (BEAKER) (test code = 431) EOSINOPHILS RELATIVE PERCENT 0 % (BEAKER) (test code = 432) BASOPHILS RELATIVE PERCENT 0 % (BEAKER) (test code = 437) NEUTROPHILS ABSOLUTE COUNT 9.74 K/ L 1.78-5.38 H (BEAKER) (test code = 670) LYMPHOCYTES ABSOLUTE COUNT 1.10 K/ L 1.32-3.57 L (BEAKER) (test code = 414) MONOCYTES ABSOLUTE COUNT (BEAKER) 0.96 K/ L 0.30-0.82 H (test code = 415) EOSINOPHILS ABSOLUTE COUNT 0.02 K/ L 0.04-0.54 L (BEAKER) (test code = 416) BASOPHILS ABSOLUTE COUNT (BEAKER) 0.02 K/ L 0.01-0.08 (test code = 417) IMMATURE GRANULOCYTES-RELATIVE 1 % 0-1 PERCENT (BEAKER) (test code = 2801) OXYGEN SATURATION, [id number] 21:09:00 Test Item Value Reference Range Interpretation Comments O2 SATURATION (MEASURED) (BEAKER) 67.5 % (test code = 1455) SODIUM NA-STAT [id number] 21:06:00 Test Item Value Reference Range Interpretation Comments SODIUM (BEAKER) (test code = 381) 141 meq/L 136-145 POTASSIUM-STAT [id number] 21:06:00 Test Item Value Reference Range Interpretation Comments POTASSIUM (BEAKER) (test code = 4.1 meq/L 3.6-5.5 379) BLOOD GAS, [id number] 21:06:00 Test Item Value Reference Range Interpretation Comments PH ARTERIAL (BEAKER) (test code = 7.42 7.35-7.45 383) PCO2 ARTERIAL (BEAKER) (test code 34 mm Hg 35-45 L = 384) PO2 ARTERIAL (BEAKER) (test code 100 mm Hg 80-90 H = 385) O2 SATURATION ARTERIAL (BEAKER) 97.9 % 96.0-97.0 H (test code = 386) HCO3 ARTERIAL (BEAKER) (test code 22 mmol/L 21-29 = 388) BASE EXCESS ARTERIAL (BEAKER) -2.7 mmol/L -2.0-3.0 L (test code = 387) PATIENT TEMPERATURE (BEAKER) 35.9 (test code = 1818) FIO2 (BEAKER) (test code = 1819) 48.0 GLUCOSE-STAT [id number] 21:06:00 Test Item Value Reference Range Interpretation Comments GLUCOSE RANDOM (BEAKER) (test code 143 mg/dL 70-110 H = 652) HGB/HCT (H&H) - STAT [id number] 21:06:00 Test Item Value Reference Range Interpretation Comments HEMOGLOBIN (BEAKER) (test code = 8.5 GM/DL 13.0-16.8 L 410) HEMATOCRIT (BEAKER) (test code = 25.0 % 40.0-50.0 L 411) CBC W/PLT COUNT & AUTO [id number] 20:48:00 Test Item Value Reference Range Interpretation Comments WHITE BLOOD CELL COUNT (BEAKER) 13.7 K/ L 3.5-10.5 H (test code = 775) RED BLOOD CELL COUNT (BEAKER) 2.40 M/ L 4.63-6.08 L (test code = 761) HEMOGLOBIN (BEAKER) (test code = 8.6 GM/DL 13.7-17.5 L 410) HEMATOCRIT (BEAKER) (test code = 25.9 % 40.1-51.0 L 411) MEAN CORPUSCULAR VOLUME (BEAKER) 107.9 fL 79.0-92.2 H (test code = 753) MEAN CORPUSCULAR HEMOGLOBIN 35.8 pg 25.7-32.2 H (BEAKER) (test code = 751) MEAN CORPUSCULAR HEMOGLOBIN CONC 33.2 GM/DL 32.3-36.5 (BEAKER) (test code = 752) RED CELL DISTRIBUTION WIDTH 11.5 % 11.6-14.4 L (BEAKER) (test code = 412) PLATELET COUNT (BEAKER) (test code 73 K/CU MM 150-450 L = 756) MEAN PLATELET VOLUME (BEAKER) 12.3 fL 9.4-12.4 (test code = 754) NUCLEATED RED BLOOD CELLS (BEAKER) 0 /100 WBC 0-0 (test code = 413) NEUTROPHILS RELATIVE PERCENT 85 % (BEAKER) (test code = 429) LYMPHOCYTES RELATIVE PERCENT 12 % (BEAKER) (test code = 430) MONOCYTES RELATIVE PERCENT 1 % (BEAKER) (test code = 431) EOSINOPHILS RELATIVE PERCENT 0 % (BEAKER) (test code = 432) BASOPHILS RELATIVE PERCENT 0 % (BEAKER) (test code = 437) NEUTROPHILS ABSOLUTE COUNT 11.68 K/ L 1.78-5.38 H (BEAKER) (test code = 670) LYMPHOCYTES ABSOLUTE COUNT 1.64 K/ L 1.32-3.57 (BEAKER) (test code = 414) MONOCYTES ABSOLUTE COUNT (BEAKER) 0.18 K/ L 0.30-0.82 L (test code = 415) EOSINOPHILS ABSOLUTE COUNT 0.06 K/ L 0.04-0.54 (BEAKER) (test code = 416) BASOPHILS ABSOLUTE COUNT (BEAKER) 0.06 K/ L 0.01-0.08 (test code = 417) IMMATURE GRANULOCYTES-RELATIVE 1 % 0-1 PERCENT (BEAKER) (test code = 2801) RAD, CHEST, 1 VIEW, NON [id number] 20:34:00Reason for exam:->s/p cardiac surgeryShould this be performed at the bedside?->Yes [facility]ENTER[facility]GLAS [facility]ERS : 1945 Sex: MFINAL REPORT TECHNIQUE: Frontal view of the chest. INDICATION: s/p car diac surgery COMPARISON:Prior day. DISCUSSION:Limited evaluation due to portable technique. Lines and hardware: Endotracheal tube is noted with tip projecting 4.1 cm above the zach. Right internal jugular central venous catheter is noted with tip projecting at the mid SVC. Enteric tube is identifiedwith sidehole projecting at the level of the gastroesophageal junction and tip within the proximal stomach. Mediastinal and left pleural drains are identified.Heart and mediastinum: Cardiac silhouette is mildly enlarged. Central vascular congestive changes are noted.Lungs and pleura: Left basilar ill-defined opacities are noted. Right lung is grossly clear. Negative for large pneumothorax.Soft tissues and bones: No acute abnormality. IMPRESSION: 1. Endotracheal tube projects 4.1 cm above the zach.2. The sidehole of the enteric tube is in the vicinity of the gastroesophageal junction, demonstrate slight advancement.3. Left basilar ill-defined opacities could relate to accommodation of atelectasisor effusion. Negative for large pneumothorax. Signed: Ralph Mandujano MDReport Verified Date/Time: 08/18/2020 20:34:51 Reading Location: [facility] P048 Angio Body Reading Room REHENSIVE METABOLIC [id number] 19:46:00 Test Item Value Reference Range Interpretation Comments TOTAL PROTEIN 6.3 gm/dL 6.0-8.3 Specimen sligh tly (BEAKER) (test code = hemoly zed 770) ALBUMIN (BEAKER) 4.1 g/dL 3.5-5.0 Specimen sl ightly (test code = 1145) hemolyzed ALKALINE PHOSPHATASE 34 U/L 40-150 L (BEAKER) (test code = 346) BILIRUBIN TOTAL 0.8 mg/dL 0.2-1.2 Specimen sli ghtly (BEAKER) (test code = hemoly zed 377) SODIUM (BEAKER) (test 144 meq/L 136-145 code = 381) POTASSIUM (BEAKER) 4.1 meq/L 3.5-5.1 Specimen slightly (test code = 379) hemolyzed CHLORIDE (BEAKER) 111 meq/L 98-107 H (test code = 382) CO2 (BEAKER) (test 23 meq/L 22-29 code = 355) BLOOD UREA NITROGEN 12 mg/dL 7-21 (BEAKER) (test code = 354) CREATININE (BEAKER) 1.00 mg/dL 0.57-1.25 Specimen slightly (test code = 358) hemolyzed GLUCOSE RANDOM 151 mg/dL 70-105 H (BEAKER) (test code = 652) CALCIUM (BEAKER) 7.9 mg/dL 8.4-10.2 L (test code = 697) AST (SGOT) (BEAKER) 29 U/L 5-34 Specimen slightly (test code = 353) hemolyzed ALT (SGPT) (BEAKER) 12 U/L 6-55 Specimen slightly (test code = 347) hemolyzed EGFR (BEAKER) (test 73 mL/min/1.73 ESTIMA MIKE GFR IS code = 1092) sq m NOT ACCURATE CREATININE CLEARANCE IN PREDICTING GLOMERULAR FILTRATION RATE . ESTIMATED GFR I S NOT APPLICABLE FOR DIALYSIS PATIEN TS. Sales Agent Financial Report Service ID - [id number] 19:45:00 Test Item Value Reference Range Interpretation Comments MAGNESIUM (BEAKER) 2.1 mg/dL 1.6-2.6 Specimen slightly (test code = 627) hemolyzed Sales Agent Financial Report Service ID - [id number] 19:45:00 Test Item Value Reference Range Interpretation Comments PHOSPHORUS (BEAKER) 3.0 mg/dL 2.3-4.7 Specimen slightly (test code = 604) hemolyzed Sales Agent Financial Report Service ID - BSLACTIC ACID, [id number] 19:40:00 Test Item Value Reference Range Interpretation Comments LACTATE BLOOD 0.8 mmol/L 0.5-2.2 Specimen sligh tly ARTERIAL (2) (BEAKER) hemoly zed (test code = 2874) Sales Agent Financial Report Service ID - [id number] 19:37:00 Test Item Value Reference Range Interpretation Comments PARTIAL THROMBOPLASTIN TIME 101.9 seconds 22.5-36.0 H (BEAKER) (test code = 760) [id number] 19:34:00 Test Item Value Reference Range Interpretation Comments FIBRINOGEN LEVEL (BEAKER) (test 249 mg/dl 225-434 code = 658) PROTHROMBIN [id number] 19:33:00 Test Item Value Reference Range Interpretation Comments PROTIME (BEAKER) (test code = 16.5 seconds 11.9-14.2 H 759) INR (BEAKER) (test code = 370) 1.37 <=5.90 Effective 02/05/2019: PT Reference Range ChangeNew: 11.9-14.2 Previous: 11.7- 14.7RECOMMENDED COUMADIN/WARFARIN INR THERAPY RANGESSTANDARD DOSE: 2.0-3.0 Includes: PROPHYLAXIS for venous thrombosis, systemic embolization; TREATMENT for venous thrombosis and/or pulmonary embolus.HIGH RISK: Target INR is2.5-3.5 for patients wiht mechanical heart valves.CBC W/PLT COUNT & AUTO [id number] 19:30:00 Test Item Value Reference Range Interpretation Comments WHITE BLOOD CELL COUNT (BEAKER) 15.8 K/ L 3.5-10.5 H (test code = 775) RED BLOOD CELL COUNT (BEAKER) 2.64 M/ L 4.63-6.08 L (test code = 761) HEMOGLOBIN (BEAKER) (test code = 9.4 GM/DL 13.7-17.5 L 410) HEMATOCRIT (BEAKER) (test code = 27.8 % 40.1-51.0 L 411) MEAN CORPUSCULAR VOLUME (BEAKER) 105.3 fL 79.0-92.2 H (test code = 753) MEAN CORPUSCULAR HEMOGLOBIN 35.6 pg 25.7-32.2 H (BEAKER) (test code = 751) MEAN CORPUSCULAR HEMOGLOBIN CONC 33.8 GM/DL 32.3-36.5 (BEAKER) (test code = 752) RED CELL DISTRIBUTION WIDTH 11.6 % 11.6-14.4 (BEAKER) (test code = 412) PLATELET COUNT (BEAKER) (test 107 K/CU MM 150-450 L code = 756) MEAN PLATELET VOLUME (BEAKER) 11.5 fL 9.4-12.4 (test code = 754) NUCLEATED RED BLOOD CELLS 0 /100 WBC 0-0 (BEAKER) (test code = 413) NEUTROPHILS RELATIVE PERCENT 83 % (BEAKER) (test code = 429) LYMPHOCYTES RELATIVE PERCENT 12 % (BEAKER) (test code = 430) MONOCYTES RELATIVE PERCENT 4 % (BEAKER) (test code = 431) EOSINOPHILS RELATIVE PERCENT 1 % (BEAKER) (test code = 432) BASOPHILS RELATIVE PERCENT 0 % (BEAKER) (test code = 437) NEUTROPHILS ABSOLUTE COUNT 13.17 K/ L 1.78-5.38 H (BEAKER) (test code = 670) LYMPHOCYTES ABSOLUTE COUNT 1.82 K/ L 1.32-3.57 (BEAKER) (test code = 414) MONOCYTES ABSOLUTE COUNT (BEAKER) 0.55 K/ L 0.30-0.82 (test code = 415) EOSINOPHILS ABSOLUTE COUNT 0.10 K/ L 0.04-0.54 (BEAKER) (test code = 416) BASOPHILS ABSOLUTE COUNT (BEAKER) 0.04 K/ L 0.01-0.08 (test code = 417) IMMATURE GRANULOCYTES-RELATIVE 1 % 0-1 PERCENT (BEAKER) (test code = 2801) Prepare [id number] 19:13:00 Test Item Value Reference Range Interpretation Comments CROSSMATCH (test code = COMPATIBLE 2264) Unit ABO (test code = A Pos 5822361) UNIT NUMBER (test code = C034979618585 934-0) Status (test code = RETURNED FROM ISSUE [id number]) Blood Bank Product (test RED BLOOD CELLS code = 2263) PRODUCT CODE (test code = L5204E90 933-2) [facility] [id number] 19:11:00 Test Item Value Reference Range Interpretation Comments PH ARTERIAL (BEAKER) (test code = 7.40 7.35-7.45 383) PCO2 ARTERIAL (BEAKER) (test code 37 mm Hg 35-45 = 384) PO2 ARTERIAL (BEAKER) (test code 111 mm Hg 80-90 H = 385) O2 SATURATION ARTERIAL (BEAKER) 98.4 % 96.0-97.0 H (test code = 386) HCO3 ARTERIAL (BEAKER) (test code 23 mmol/L 21-29 = 388) BASE EXCESS ARTERIAL (BEAKER) -2.5 mmol/L -2.0-3.0 L (test code = 387) PATIENT TEMPERATURE (BEAKER) 34.2 (test code = 1818) FIO2 (BEAKER) (test code = 1819) 60.0 GLUCOSE-STAT [id number] 19:11:00 Test Item Value Reference Range Interpretation Comments GLUCOSE RANDOM (BEAKER) (test code 149 mg/dL 70-110 H = 652) HGB/HCT (H&H) - STAT [id number] 19:11:00 Test Item Value Reference Range Interpretation Comments HEMOGLOBIN (BEAKER) (test code = 9.7 GM/DL 13.0-16.8 L 410) HEMATOCRIT (BEAKER) (test code = 29.0 % 40.0-50.0 L 411) SODIUM NA-STAT [id number] 19:10:00 Test Item Value Reference Range Interpretation Comments SODIUM (BEAKER) (test code = 381) 141 meq/L 136-145 POTASSIUM-STAT [id number] 19:10:00 Test Item Value Reference Range Interpretation Comments POTASSIUM (BEAKER) (test code = 4.1 meq/L 3.6-5.5 379) [id number] 18:38:00 Test Item Value Reference Range Interpretation Comments PHOSPHORUS (BEAKER) (test code = 4.1 mg/dL 2.3-4.7 604) Sales Agent Financial Report Service ID - BSPOC ACTIVATED CLOTTING [id number] 17:55:00 Test Item Value Reference Range Interpretation Comments Activated Clotting Time 120 sec : 74 -137 seconds, (test code = 441) Baseline: TESTED AT [address], [address]: Sales Agent Financial Report Service/Techni david ID = [id number] for BELL RSHMAN, GLADIS [id number] 17:55:00 Test Item Value Reference Range Interpretation Comments ACTIVATED CLOTTING TIME 120 sec : 74 -137 seconds, (BEAKER) (test code = Baseli ne: TESTED AT 441) [address], [address]: Sales Agent Financial Report Service/Techni david ID = [id number] for BELL RSHMAN, GLADIS [id number] 17:55:00 Test Item Value Reference Range Interpretation Comments ACTIVATED CLOTTING TIME 367 sec : 74 -137 seconds, (BEAKER) (test code = Baseli ne: TESTED AT 441) [address], [address]: Sales Agent Financial Report Service/Techni david ID = [id number] for BELL RSHMAN, GLADIS [id number] 17:54:00 Test Item Value Reference Range Interpretation Comments ACTIVATED CLOTTING TIME 582 sec : 74 -137 seconds, (BEAKER) (test code = Baseli ne: TESTED AT 441) [address], [address]: Sales Agent Financial Report Service/Techni david ID = [id number] for BELL RSHMAN, GLADIS [id number] 17:54:00 Test Item Value Reference Range Interpretation Comments ACTIVATED CLOTTING TIME 681 sec : 74 -137 seconds, (BEAKER) (test code = Baseli ne: TESTED AT 441) [address], [address]: Sales Agent Financial Report Service/Techni david ID = [id number] for BELL RSHMAN, GLADIS [id number] 17:54:00 Test Item Value Reference Range Interpretation Comments ACTIVATED CLOTTING TIME 466 sec : 74 -137 seconds, (BEAKER) (test code = Baseli ne: TESTED AT 441) [address], [address]: Sales Agent Financial Report Service/Techni david ID = [id number] for GLADIS MONDRAGON [id number] 17:54:00 Test Item Value Reference Range Interpretation Comments ACTIVATED CLOTTING TIME 125 sec : 74 -137 seconds, (BEAKER) (test code = Baseli ne: TESTED AT 441) [facility] [address] [facility], [address]: Sales Agent Financial Report Service/Techni david ID = [id number] for GLADIS MONDRAGON Platelet [id number] 17:41:00 Test Item Value Reference Range Interpretation Comments Platelets (test code 75 See_Comment L [Autom ated = 777-3) message] The system which generated this result transmit mike reference range : 150 - 450 K/CU MM. The reference range was not u sed to interpret th is result as normal/abnormal . SARAH (test code = SARAH) Sales Agent Financial Report Service ID - [id number] ID - [id number] ID - 6000Operator ID - [id number] Lab Interpretation Abnormal (test code = 83800-8) [facility] Center[facility] [id number] 17:41:00 Test Item Value Reference Range Interpretation Comments PLATELET COUNT (BEAKER) (test code 75 K/CU MM 150-450 L = 756) Sales Agent Financial Report Service ID - [id number] ID - 6000Operator ID - 6000Operator ID - [id number] 17:39:00 Test Item Value Reference Range Interpretation Comments FIBRINOGEN LEVEL (BEAKER) (test 220 mg/dl 225-434 L code = 658) [id number] 17:36:00 Test Item Value Reference Range Interpretation Comments PARTIAL THROMBOPLASTIN TIME 123.0 seconds 22.5-36.0 H (BEAKER) (test code = 760) PROTHROMBIN [id number] 17:30:00 Test Item Value Reference Range Interpretation Comments PROTIME (BEAKER) (test code = 19.4 seconds 11.9-14.2 H 759) INR (BEAKER) (test code = 370) 1.69 <=5.90 Effective 02/05/2019: PT Reference Range ChangeNew: 11.9-14.2 Previous: 11.7- 14.7RECOMMENDED COUMADIN/WARFARIN INR THERAPY RANGESSTANDARD DOSE: 2.0-3.0 Includes: PROPHYLAXIS for venous thrombosis, systemic embolization; TREATMENT for venous thrombosis and/or pulmonary embolus.HIGH RISK: Target INR is2.5-3.5 for patients wiht mechanical heart valves.BLOOD GAS, [id number] 17:17:00 Test Item Value Reference Range Interpretation Comments PH ARTERIAL (BEAKER) (test code = 7.31 7.35-7.45 L 383) PCO2 ARTERIAL (BEAKER) (test code 42 mm Hg 35-45 = 384) PO2 ARTERIAL (BEAKER) (test code 233 mm Hg 80-90 H = 385) O2 SATURATION ARTERIAL (BEAKER) 99.4 % 96.0-97.0 H (test code = 386) HCO3 ARTERIAL (BEAKER) (test code 21 mmol/L 21-29 = 388) BASE EXCESS ARTERIAL (BEAKER) -5.3 mmol/L -2.0-3.0 L (test code = 387) PATIENT TEMPERATURE (BEAKER) 36.0 (test code = 1818) FIO2 (BEAKER) (test code = 1819) 80.0 GLUCOSE-STAT [id number] 17:17:00 Test Item Value Reference Range Interpretation Comments GLUCOSE RANDOM (BEAKER) (test code 159 mg/dL 70-110 H = 652) HGB/HCT (H&H) - STAT [id number] 17:17:00 Test Item Value Reference Range Interpretation Comments HEMOGLOBIN (BEAKER) (test code = 9.6 GM/DL 13.0-16.8 L 410) HEMATOCRIT (BEAKER) (test code = 28.0 % 40.0-50.0 L 411) CALCIUM, [id number] 17:15:00 Test Item Value Reference Range Interpretation Comments CALCIUM IONIZED (BEAKER) (test 1.13 mmol/L 1.12-1.27 code = 698) PH, BLOOD (BEAKER) (test code = 7.30 1810) SODIUM NA-STAT [id number] 17:14:00 Test Item Value Reference Range Interpretation Comments SODIUM (BEAKER) (test code = 381) 137 meq/L 136-145 POTASSIUM-STAT [id number] 17:14:00 Test Item Value Reference Range Interpretation Comments POTASSIUM (BEAKER) (test code = 4.5 meq/L 3.6-5.5 379) BLOOD GAS, [id number] 16:38:00 Test Item Value Reference Range Interpretation Comments PH ARTERIAL (BEAKER) (test code = 7.43 7.35-7.45 383) PCO2 ARTERIAL (BEAKER) (test code 30 mm Hg 35-45 L = 384) PO2 ARTERIAL (BEAKER) (test code 246 mm Hg 80-90 H = 385) O2 SATURATION ARTERIAL (BEAKER) 99.6 % 96.0-97.0 H (test code = 386) HCO3 ARTERIAL (BEAKER) (test code 20 mmol/L 21-29 L = 388) BASE EXCESS ARTERIAL (BEAKER) -4.2 mmol/L -2.0-3.0 L (test code = 387) PATIENT TEMPERATURE (BEAKER) 34.0 (test code = 1818) FIO2 (BEAKER) (test code = 1819) 70.0 GLUCOSE-STAT [id number] 16:38:00 Test Item Value Reference Range Interpretation Comments GLUCOSE RANDOM (BEAKER) (test code 183 mg/dL 70-110 H = 652) HGB/HCT (H&H) - STAT [id number] 16:38:00 Test Item Value Reference Range Interpretation Comments HEMOGLOBIN (BEAKER) (test code = 8.1 GM/DL 13.0-16.8 L 410) HEMATOCRIT (BEAKER) (test code = 24.0 % 40.0-50.0 L 411) SODIUM NA-STAT [id number] 16:37:00 Test Item Value Reference Range Interpretation Comments SODIUM (BEAKER) (test code = 381) 137 meq/L 136-145 POTASSIUM-STAT [id number] 16:37:00 Test Item Value Reference Range Interpretation Comments POTASSIUM (BEAKER) (test code = 5.1 meq/L 3.6-5.5 379) SODIUM NA-STAT [id number] 16:22:00 Test Item Value Reference Range Interpretation Comments SODIUM (BEAKER) (test code = 381) 137 meq/L 136-145 POTASSIUM-STAT [id number] 16:22:00 Test Item Value Reference Range Interpretation Comments POTASSIUM (BEAKER) (test code = 4.9 meq/L 3.6-5.5 379) BLOOD GAS, [id number] 16:22:00 Test Item Value Reference Range Interpretation Comments PH ARTERIAL (BEAKER) (test code = 7.51 7.35-7.45 H 383) PCO2 ARTERIAL (BEAKER) (test code 23 mm Hg 35-45 L = 384) PO2 ARTERIAL (BEAKER) (test code 321 mm Hg 80-90 H = 385) O2 SATURATION ARTERIAL (BEAKER) 99.8 % 96.0-97.0 H (test code = 386) HCO3 ARTERIAL (BEAKER) (test code 20 mmol/L 21-29 L = 388) BASE EXCESS ARTERIAL (BEAKER) -5.1 mmol/L -2.0-3.0 L (test code = 387) PATIENT TEMPERATURE (BEAKER) 28.2 (test code = 1818) FIO2 (BEAKER) (test code = 1819) 70.0 GLUCOSE-STAT [id number] 16:22:00 Test Item Value Reference Range Interpretation Comments GLUCOSE RANDOM (BEAKER) (test code 174 mg/dL 70-110 H = 652) HGB/HCT (H&H) - STAT [id number] 16:22:00 Test Item Value Reference Range Interpretation Comments HEMOGLOBIN (BEAKER) (test code = 6.5 GM/DL 13.0-16.8 L 410) HEMATOCRIT (BEAKER) (test code = 19.0 % 40.0-50.0 L 411) Blood gas, [id number] 16:04:00 Test Item Value Reference Range Interpretation Comments pH, Jarett (test code = 7.36 7.32-7.42 2746-6) pCO2, Jarett (test code = 38 See_Comment L [Aut omated 755) message] The sy stem which generated this result transmitted reference range : 41 - 51 mm Hg. The reference range was not used to interpret this result as normal/abnormal . pO2, Jarett (test code = 51 See_Comment H [Auto mated 8705-2) message] The sy stem which generated this result transmitted reference range : 25 - 40 mm Hg. The reference range was not used to interpret this result as normal/abnormal . O2 Sat, Jarett (test code 92.2 % 40-70 H = 2711-0) HCO3, Jarett (test code = 22 mmol/L 21-29 59387-6) Base Excess, Jarett (test -4.2 mmol/L -2-3 L code = 1927-3) Patient Temperature 32.3 (test code = 8310-5) FIO2 (test code = 1819) 70 Lab Interpretation Abnormal (test code = 50478-5) [facility], [id number] 16:04:00 Test Item Value Reference Range Interpretation Comments PH VENOUS (BEAKER) (test code = 7.36 7.32-7.42 701) PCO2 VENOUS (BEAKER) (test code = 38 mm Hg 41-51 L 755) PO2 VENOUS (BEAKER) (test code = 51 mm Hg 25-40 H 702) O2 SATURATION VENOUS (BEAKER) 92.2 % 40.0-70.0 H (test code = 703) HCO3 VENOUS (BEAKER) (test code = 22 mmol/L 21-29 705) BASE EXCESS VENOUS (BEAKER) (test -4.2 mmol/L -2.0-3.0 L code = 704) PATIENT TEMPERATURE (BEAKER) 32.3 (test code = 1818) FIO2 (BEAKER) (test code = 1819) 70.0 SODIUM NA-STAT [id number] 16:04:00 Test Item Value Reference Range Interpretation Comments SODIUM (BEAKER) (test code = 381) 138 meq/L 136-145 POTASSIUM-STAT [id number] 16:04:00 Test Item Value Reference Range Interpretation Comments POTASSIUM (BEAKER) (test code = 4.0 meq/L 3.6-5.5 379) BLOOD GAS, [id number] 16:04:00 Test Item Value Reference Range Interpretation Comments PH ARTERIAL (BEAKER) (test code = 7.40 7.35-7.45 383) PCO2 ARTERIAL (BEAKER) (test code 33 mm Hg 35-45 L = 384) PO2 ARTERIAL (BEAKER) (test code 410 mm Hg 80-90 H = 385) O2 SATURATION ARTERIAL (BEAKER) 99.8 % 96.0-97.0 H (test code = 386) HCO3 ARTERIAL (BEAKER) (test code 21 mmol/L 21-29 = 388) BASE EXCESS ARTERIAL (BEAKER) -4.5 mmol/L -2.0-3.0 L (test code = 387) PATIENT TEMPERATURE (BEAKER) 32.3 (test code = 1818) FIO2 (BEAKER) (test code = 1819) 70.0 GLUCOSE-STAT [id number] 16:04:00 Test Item Value Reference Range Interpretation Comments GLUCOSE RANDOM (BEAKER) (test code 175 mg/dL 70-110 H = 652) HGB/HCT (H&H) - STAT [id number] 16:04:00 Test Item Value Reference Range Interpretation Comments HEMOGLOBIN (BEAKER) (test code = 8.9 GM/DL 13.0-16.8 L 410) HEMATOCRIT (BEAKER) (test code = 26.0 % 40.0-50.0 L 411) [id number] 14:13:41Jose Chao MD 08/18/2020 5:37 PMTEE Date: 08/18/2020 2:14 PM Sex: Male Location: OR Requesting Physician: Kingsley Vaughan MD Examiner: Jose Chao MDJacobs, Daniel AaronIntubated Sedated Patient screened for esoph disease: Yes Insertion: easy Probe Type: multiplane Modalities: 2D, CFM, CWD and PWD Pre Intervention Summary: Aorta: No aneurysm, no dissection, no mobile plaques. Diffuse calcification on the anterior ascending aorta and several grade 4 atheromas.AV:trileaflet morphology, No aortic stenosis, No aortic regurgitationLV: Normal chamber size , No LVH, n ormal systolic function (EF 60% by qualitative assessment), No RWMA, no thrombusMV: normal morphology, No mitral regurgitation, No mitral stenosisGrade 1 diastolic dysfunctionLA: no FEDE thrombus, normal size and functionPV: limited visualizationRV: Normal sized chamber, Normal function (TAPSE 21), no t hrombusTV: normal morphology, No tricuspid regurgitationRA: no thrombus No PFO by color dopper flow All findings communicated to surgical team. Post Intervention Summary: S/p 3v CABG:Inotropic support at time of post-CPB exam: 1. LV: normal LV size, hyperdynamic LV systolic function with LVEF > 70%. Mild degree of basal and mid anteroseptal hypokinesis; all other segments contract normally.2.RV: normal RV size, normal RV systolic function.3. Valves: no interval valvular pathology. No ORA.4.No interval aortic pathology.5. No pericardial effusion. Findings discussed with surgical team.[facility], [id number] 13:55:00 Test Item Value Reference Range Interpretation Comments PH ARTERIAL (BEAKER) (test code = 7.39 7.35-7.45 383) PCO2 ARTERIAL (BEAKER) (test code 40 mm Hg 35-45 = 384) PO2 ARTERIAL (BEAKER) (test code 372 mm Hg 80-90 H = 385) O2 SATURATION ARTERIAL (BEAKER) 99.8 % 96.0-97.0 H (test code = 386) HCO3 ARTERIAL (BEAKER) (test code 24 mmol/L 21-29 = 388) BASE EXCESS ARTERIAL (BEAKER) -1.5 mmol/L -2.0-3.0 (test code = 387) PATIENT TEMPERATURE (BEAKER) 36.2 (test code = 1818) FIO2 (BEAKER) (test code = 1819) 100.0 GLUCOSE-STAT [id number] 13:55:00 Test Item Value Reference Range Interpretation Comments GLUCOSE RANDOM (BEAKER) (test code 116 mg/dL 70-110 H = 652) SODIUM NA-STAT [id number] 13:54:00 Test Item Value Reference Range Interpretation Comments SODIUM (BEAKER) (test code = 381) 140 meq/L 136-145 POTASSIUM-STAT [id number] 13:54:00 Test Item Value Reference Range Interpretation Comments POTASSIUM (BEAKER) (test code = 3.8 meq/L 3.6-5.5 379) HGB/HCT (H&H) - STAT [id number] 13:54:00 Test Item Value Reference Range Interpretation Comments HEMOGLOBIN (BEAKER) (test code = 13.6 GM/DL 13.0-16.8 410) HEMATOCRIT (BEAKER) (test code = 40.0 % 40.0-50.0 411) CALCIUM, [id number] 13:54:00 Test Item Value Reference Range Interpretation Comments CALCIUM IONIZED (BEAKER) (test 1.17 mmol/L 1.12-1.27 code = 698) PH, BLOOD (BEAKER) (test code = 7.38 1810) Carotid doppler [id number] 13:34:17Ejection FractionSLEH ECHO HEARTLAB MKCKESSON CPACSRight Impression1. There is <50% diameter reduction (approximately 38% by 2-D measurement)in the internal carotid artery with a peak velocity of 110/29.9 cm/sec andheterogeneous plaque.2. There is non-occluding plaque in the external carotid artery.3. There is non-occluding plaque in the common carotid artery.4. The vertebral artery flow is antegrade and normal.5. The subclavian artery is within normal limits where visualized.Left Impression1. There is <50% diameter reduction (approximately 38% by 2-D measurement)in the internal carotid artery with a peak velocity of 99.7/25.8 cm/sec andheterogeneous plaque.2. There is non-occluding plaque in the external carotid artery.3. There is non-occluding plaque in the common carotid artery.4. The griselda tebral artery flow is antegrade and normal.5. The subclavian artery is within normal limits where visualized. Conclusions Summary Carotid duplex scanning and color flow imaging were performed bilaterally. The arteries were adequately visualized. The bilateral internal carotid arteries had <50% hemodynamically insignificant stenosis (approximately 38% by 2-D measurement on the right, approximately 38% by 2-D measurement on the left) with heterogeneous plaque. The vertebral artery flow was antegrade and normal bilaterally. The subclavian arteries were patent with normal flow bilaterally where visualized. Signature Velocities are measured in cm/s ; Diameters are measured in cm Carotid Right Measurements+ +----+----+-----+ + +---- -------+!Location !PSV !EDV !Angle!%Stenosis 2D!%Stenosis Doppler!Tortuosity !+ +--- -+----+-----+ + + +!Prox CCA !103 !14.1!60 !! ! !+ +----+----+-----+ + +------ -----+!Dist CCA !86.8!14.7!60 ! ! ! !+ +-- --+----+-----+ + + +!Prox ICA !110 !29.9!60 !38% !<50% ! !+ +----+----+-----+ + +-- ---------+!Dist ICA !113 !25.8!60 ! ! ! !+ -+----+----+-----+ + + +!Prox ECA !85 !8.79!60 ! ! ! !+ +----+----+-----+ + +- +!Vertebral !54.5!15.2!60 ! ! ! !+ --+----+----+-----+ + + +!Prox Subclavian!182 ! !60 ! ! ! !+ +----+----+-----+ + + + - There is antegrade vertebral flow noted on the right side. - Additional Measurements:ICAPSV/CCAPSV 1.3.ICAEDV/CCAEDV 2.12. Carotid Left Measurements+ +----+----+-----+-- + + +!Location !PSV !EDV !Angle!%Stenosis 2D!%Stenosis Doppler!Tortuosity !+ +----+----+-----+ + + +!Pr ox CCA !117 !29.5!60 ! ! ! !+ +----+----+-----+- + + +!Dist CCA !65.1!14.7!60 ! ! ! !+ +----+----+-----+ + + +!Pr ox ICA !99.7!25.8!60 !38% !<50% ! !+ +----+----+--- --+ + + +!Dist ICA !127 !40.9!60 ! ! ! !+ +----+----+-----+ + + +!Pr ox ECA !89.1!14.1!60 ! ! ! !+ +----+----+-- ---+ + + +!Vertebral !30.3!8.25!60 ! ! ! !+ +----+----+-----+ + + +!Pr ox Subclavian!144 ! !60 ! ! ! !+ +----+----+-----+ + + + - There is antegrade vertebral flow noted on the left side. - Additional Measurements:ICAPSV/CCAPSV 1.95.ICAEDV/CCAEDV 1.39. Interface, External RisIn - 08/18/2020 1:34 PM [facility] LAB - Carotid Duplex Study Demographics Patient Name DOUGLAS SOMMERS Date of Study 08/17/2020 JOEL Age 75 Visit Number [id number] Gender Male Accession Number [id number] Date of 1945 Referring Kingsley Vaughan MD Room Number SCPR Physician Analysis Director Joseph Fuentes Interpreting Natacha Crum MD Physician ProcedureType of Study: Cerebral: Carotid, CAROTID DOPPLER, BILATERAL. Indications for Study:Pre OP CABG.Patient Status:Routine.Study Location:Portable.Technical Quality:Adequate visualization.Risk FactorsHistory of Disease+ +----+------ +!Diagnosis !Date!Comments !+ +----+ +!Hi story/Risk Factors: ! !Current Smoker, CAD, HTN !+ +----+----- +ImpressionsRight Impression1. There is <50% diameter reduction(approximately 38% by 2-D measurement)in the internal carotid artery with a peak velocity of 110/29.9 cm/sec andheterogeneous plaque.2. There is non-occluding plaque in the external carotid artery.3. There is non-occluding plaque in the common carotid artery.4. The vertebral artery flow is antegrade and normal.5. The subclavian artery is within normal limits where visualized.Left Impression1. There is <50% diameter reduction (approximately 38% by 2-D measurement)in the internal carotid artery with a peak velocity of 99.7/25.8 cm/sec andheterogeneous plaque.2. There is non-occluding plaque in theexternal carotid artery.3. There is non-occluding plaque in the common carotid artery.4. The vertebral artery flow is antegrade and normal.5. The subclavian artery is within normal limits where visualized. Conclusions Summary Carotid duplex scanning and color flow imaging were performed bilaterally.The arteries were adequately visualized. The bilateral internal carotid arteries had <50% hemodynamically insignificant stenosis (approximately 38% by 2-D measurement on the right, approximately 38%by 2-D measurement on the left) with heterogeneous plaque. The vertebral artery flow was antegrade and normal bilaterally. The subclavian arteries were patent with normal flow bilaterally where visualized. Signature Velocities are measured in cm/s ; Diameters are measured in cmCarotid Right Measurements+ +----+----+-----+ + +---- -------+!Location !PSV !EDV !Angle!%Stenosis 2D!%Stenosis Doppler!Tortuosity !+ +----+----+ -----+ + + +!Prox CCA !103 !14.1!60 ! ! ! !+ +----+----+-----+ + + +! Dist CCA !86.8!14.7!60 ! ! ! !+ +----+---- +-----+ + + +!Prox ICA !110 !29.9!60 !38% !<50% ! !+ +----+----+-----+ + +--------- --+!Dist ICA !113 !25.8!60 ! ! ! !+ +----+ ----+-----+ + + +!Prox ECA !85 !8.79!60 ! ! ! !+ +----+----+-----+ + +-------- ---+!Vertebral !54.5!15.2!60 ! ! ! !+ +---- +----+-----+ + + +!Prox Subclavian!182 ! !60 ! ! ! !+ +----+----+-----+ + + + - There is antegrade vertebral flow noted on the right side. - Additional Measurements:ICAPSV/CCAPSV 1.3.ICAEDV/CCAEDV 2.12.Carotid Left Measurements+ +----+----+-----+ + + +!Location !PSV !EDV !Angle!%Stenosis 2D!%Stenosis Doppler!Tortuosity !+ +----+----+-----+ + + +!Pr ox CCA !117 !29.5!60 ! ! ! !+ +----+----+-----+ -+ + +!Dist CCA !65.1!14.7!60 ! ! ! !+ +----+----+-----+ + + +!Pr ox ICA !99.7!25.8!60 !38% !<50% ! !+ +----+----+-----+------- -----+ + +!Dist ICA !127 !40.9!60 ! ! ! !+ +----+----+-----+ + + +!Pr ox ECA !89.1!14.1!60 ! ! ! !+ +----+----+-----+------ ------+ + +!Vertebral !30.3!8.25!60 ! ! ! !+ +----+----+-----+ + + +!Pr ox Subclavian!144 ! !60 ! ! ! !+ +----+----+-----+ + + + - There is antegrade vertebral flow noted on the left side.- Additional Measurements:ICAPSV/CCAPSV 1.95.ICAEDV/CCAEDV 1.39.[facility] Vein Mapping Legs [id number] 13:29:57Ejection FractionSST. [facility] MKCKESSON CPACSRight Impression1. There is no deep venous venous obstruction in the common femoral,profunda femoral, femoral, popliteal, posterior tibial or peronealveins.2. There is no superficial venous obstruction in the great saphenous vein.Left Impression1. There is no deep venous obstruction in the common femoral, profundafemoral, femoral, popliteal, posterio r tibial or peroneal veins.2. There is no superficial venous obstruction in the great saphenous vein. Conclusions Summary Venous duplex imaging and compression of the bilateral lower extremities wasperformed. The veins were adequately visualized. The bilateral venous systems were patent and compressible with no evidence of thrombus. Superficial venous measurements are documented below. Signature Velocities are measured in cm/s ; Diameters are measured in cm LE Vein MappingSuperficial - Great Saphenous Vein Right Left + + + + + + + + !Location ! !Diameter !Depth ! !Diameter !Depth ! + + + + + + + + !GSV High Thigh ! !0.26 ! ! !0.47 ! ! + + + + + + + +!GSV Mid Thigh ! !0.28 ! ! !0.32 ! ! + + + + + + + + !GSV Low Thigh ! !0.28 ! ! !0.27 ! ! + + + + + + + + !GSV High Calf ! !0.21 ! ! !0.26 ! ! + + + + + +----- + + !GSV Mid Calf ! !0.22 ! ! !0.26 ! ! + + + + + + + + !GSV Low Calf ! !0.29 ! ! !0.32 ! ! + + + + + + + + Interface, External Ris In - 08/18/2020 1:30 PM CSTPV LAB - Lower Extremities Vein Mapping Demographics Patient Name DOUGLAS SOMMERS Date of Study 08/17/2020 JOEL Age 75 Visit Number [id number] Gender Male Accession Number [id number] Date of 1945 Referring Tisha Corbett Room Number SCPR Physician Tamela Analysis Director Hawk Mijares Interpreting Natacha Crum T Physician ProcedureType of Study: Veins: Lower Extremity Vein Mapping, VEIN MAPPING, LOWER EXTREMITY, BILATERAL. Indications for Study:Pre-op evaluation.Patient Status:STAT.StudyLocation:Portable.Technical Quality:Adequate visualization.Risk FactorsHistory of Disease+ +----+ +!Diagnosis !Date!Comments !+ +----+ +!History/Risk Factors: ! !Current Smoker, CAD, HTN !+ +----+ +ImpressionsRigh t Impression1. Thereis no deep venous venous obstruction in the common femoral,profunda femoral, femoral, popliteal, posterior tibial or peroneal veins.2. There is no superficial venous obstruction in the great saphenous v ein.Left Impression1. There is no deep venous obstruction in the common femoral, profundafemoral, femoral, popliteal, posterior tibial or peroneal veins.2. There is no superficial venous obstruction inthe great saphenous vein. Conclusions Summary Venous duplex imaging and compression of the bilateral lower extremities was performed. The veins were adequately visualized. The bilateral venous systems were patent and compressible with no evidence of thrombus. Superficial venous measurements are documented below. Signature Velocities are measured in cm/s ; Diameters are measured in cmLE Vein Mapping Superficial - Great Saphenous Vein Right Left + + + + + + + + !Location ! !Diameter !Depth ! !Diameter !Depth ! + + + + + + + + !GSV High Thigh !!0.26 ! ! !0.47 ! ! + + + + + + + + !GSV Mid Thigh ! !0.28 ! ! !0.32 ! ! + + + + + + + + !GSV Low Thigh ! !0.28 ! ! !0.27 ! ! + + + + + + + + !GSV High Calf ! !0.21 ! ! !0.26 ! ! + + + + + + + + !GSV Mid Calf ! !0.22 ! ! !0.26 ! ! + + + + + + + + !GSV Low Calf ! !0.29 ! ! !0.32 ! ! + + + + + + + +[facility] CenterPlatelet Aggregation: Drug [id number] 11:41:00 Test Item Value Reference Range Interpretation Comments Arachadonic Acid 71 % 63-89 (test code = 5993-1) Interpretation (test Normal code = 74802-5) arachidonic acid and ADP results. No B6D94-lswpt or aspirin-like drug effect. Pathologist: (test Sissy code = 2621) MD Maximiliano (electronic signature) Platelets (test code 198 See_Comment [Autom ated = 7046) message] The system which generated this result transmitted reference range : 150 - 450 K/CU MM. The referen ce range was not used to interpr et this result as normal/abnormal . ADP (test code = 79 % 62-100 61415-9) Platelet Rich Plasma 240 See_Comment [Autom ated (test code = 2134) message] The system which generated this result transmitted reference range : 200 - 300 k/cu mm. The referen ce range was not used to interpr et this result as normal/abnormal . SARAH (test code = SARAH) Platelet function studies by aggregation methodology on samples with platelet count <75,000/CU MM are unreliable; platelet function assessment should not be based on a single test.Sales Agent Financial Report Service ID - [id number] [facility] CenterPLATELET AGGREGATION: DRUG [id number] 11:41:00 Test Item Value Reference Range Interpretation Comments ARACHADONIC ACID 71 % 63-89 RESULT(BEAKER) (test code = 2138) PLATELET AGG DRUG Normal arachidonic INTERPRETATION (BEAKER) acid and ADP results. (test code = 0601) No Q4H39-ncmio or aspirin-like drug effect. [id number] Sissy Viera, (BEAKER) (test code = (electronic 9003) signature) PLATELET COUNT AGG 198 K/CU MM 150-450 (BEAKER) (test code = 0986) ADP (BEAKER) (test code 79 % 62-100 = 9124) PLATELET RICH 240 k/cu mm 200-300 PLASMA(BEAKER) (test code = 2134) Platelet function studies by aggregation methodology on samples with platelet count <75,000/CU MMare unreliable; platelet function assessment should not be based on a single test.Sales Agent Financial Report Service ID - [id number]-GLUCOSE [id number] 09:07:00 Test Item Value Reference Range Interpretation Comments POC-GLUCOSE METER 169 mg/dL 70-110 H : TESTED A T [facility] 6720 (BEAKER) (test code = TWIN DEWEY MD, 1538) 28377: Sales Agent Financial Report Service/Techni david ID = [id number] for KALEN DAILEY COMPREHENSIVE METABOLIC [id number] 07:13:00 Test Item Value Reference Range Interpretation Comments TOTAL PROTEIN 7.0 gm/dL 6.0-8.3 (BEAKER) (test code = 770) ALBUMIN (BEAKER) 3.8 g/dL 3.5-5.0 (test code = 1145) ALKALINE PHOSPHATASE 50 U/L 40-150 (BEAKER) (test code = 346) BILIRUBIN TOTAL 0.6 mg/dL 0.2-1.2 (BEAKER) (test code = 377) SODIUM (BEAKER) (test 141 meq/L 136-145 code = 381) POTASSIUM (BEAKER) 3.8 meq/L 3.5-5.1 (test code = 379) CHLORIDE (BEAKER) 107 meq/L 98-107 (test code = 382) CO2 (BEAKER) (test 22 meq/L 22-29 code = 355) BLOOD UREA NITROGEN 13 mg/dL 7-21 (BEAKER) (test code = 354) CREATININE (BEAKER) 1.14 mg/dL 0.57-1.25 (test code = 358) GLUCOSE RANDOM 101 mg/dL 70-105 (BEAKER) (test code = 652) CALCIUM (BEAKER) 9.2 mg/dL 8.4-10.2 (test code = 697) AST (SGOT) (BEAKER) 17 U/L 5-34 (test code = 353) ALT (SGPT) (BEAKER) 14 U/L 6-55 (test code = 347) EGFR (BEAKER) (test 63 mL/min/1.73 ESTIMA MIKE GFR IS code = 1092) sq m NOT ACCURATE CREATININE CLEARANCE IN PREDICTING GLOMERULAR FILTRATION RATE . ESTIMATED GFR I S NOT APPLICABLE FOR DIALYSIS PATIEN TS. Sales Agent Financial Report Service ID - [id number] 07:13:00 Test Item Value Reference Range Interpretation Comments MAGNESIUM (BEAKER) (test code = 1.8 mg/dL 1.6-2.6 627) Sales Agent Financial Report Service ID - EDASIElectrocardiogram, [id number] 06:44:22Interface, External Ris In - 08/18/2020 6:44 AM CSTVentricular Rate 71 BPMAtrial Rate 71 BPMP-R Interval 138 msQRS Duration 80 msQ-T Interval 384 msQTC Calculation(Bazett) 417 msP Strawberry -2 degreesR Strawberry 46 degreesT Strawberry 61 degreesNormal sinus rhythmCannot rule out Anterior infarct , age undeterminedAbn ormal ECGNo previous ECGs availableConfirmed by MD JASON, LIZY Mehta ([id number]) on 08/18/2020 6:44:19 [facility] 06:44[facility]00 Test Item Value Reference Range Interpretation Comments PARTIAL THROMBOPLASTIN TIME 74.9 seconds 22.5-36.0 H (BEAKER) (test code = 760) CBC (HEMOGRAM ONLY)2020-08-18 06:36:00 Test Item Value Reference Range Interpretation Comments WHITE BLOOD CELL COUNT (BEAKER) 6.4 K/ L 3.5-10.5 (test code = 775) RED BLOOD CELL COUNT (BEAKER) 3.82 M/ L 4.63-6.08 L (test code = 761) HEMOGLOBIN (BEAKER) (test code = 13.4 GM/DL 13.7-17.5 L 410) HEMATOCRIT (BEAKER) (test code = 40.4 % 40.1-51.0 411) MEAN CORPUSCULAR VOLUME (BEAKER) 105.8 fL 79.0-92.2 H (test code = 753) MEAN CORPUSCULAR HEMOGLOBIN 35.1 pg 25.7-32.2 H (BEAKER) (test code = 751) MEAN CORPUSCULAR HEMOGLOBIN CONC 33.2 GM/DL 32.3-36.5 (BEAKER) (test code = 752) RED CELL DISTRIBUTION WIDTH 11.6 % 11.6-14.4 (BEAKER) (test code = 412) PLATELET COUNT (BEAKER) (test 204 K/CU MM 150-450 code = 756) MEAN PLATELET VOLUME (BEAKER) 11.9 fL 9.4-12.4 (test code = 754) NUCLEATED RED BLOOD CELLS 0 /100 WBC 0-0 (BEAKER) (test code = 413) RAD, CHEST, 1 VIEW, NON [id number] 00:02:00Reason for exam:->preop ACBShould this be performed at the bedside?->Yes [facility] : 1945 Sex: MFINAL REPORT History: Preoperative evaluation for ACB. Comparison: No ne. Findings: 2 frontal images of the chest are submitted. The cardiac silhouette is within normal limits for size. There is atherosclerotic calcification of the aorta. There is no focal consolidation, pneumothorax, large pleural effusion or evidence of overt pulmonary edema. There is no acute bonyabnormality. Impression: No active cardiopulmonary abnormality. Signed: Ivette Soto MDReport Verified Date/Time: 08/18/2020 00:02:57 APTT 2020-08-17 23:07:00 Test Item Value Reference Range Interpretation Comments PARTIAL THROMBOPLASTIN TIME 53.0 seconds 22.5-36.0 H (BEAKER) (test code = 760) PROTHROMBIN TIME/[id number] 23:06:00 Test Item Value Reference Range Interpretation Comments PROTIME (BEAKER) (test code = 14.1 seconds 11.9-14.2 759) INR (BEAKER) (test code = 370) 1.12 <=5.90 Effective 02/05/2019: PT Reference Range ChangeNew: 11.9-14.2 Previous: 11.7- 14.7RECOMMENDED COUMADIN/WARFARIN INR THERAPY RANGESSTANDARD DOSE: 2.0-3.0 Includes: PROPHYLAXIS for venous thrombosis, systemic embolization; TREATMENT for venous thrombosis and/or pulmonary embolus.HIGH RISK: Target INR is2.5-3.5 for patients wiht mechanical heart valves.POCT-GLUCOSE [id number] 21:27:00 Test Item Value Reference Range Interpretation Comments POC-GLUCOSE METER 79 mg/dL 70-110 : TESTED A T [facility] 6720 (BEAKER) (test code = TWIN Fritz [facility], 1538) [id number]: Sales Agent Financial Report Service/Techni david ID = [id number] for BRANDON FERNANDEZ POCT-GLUCOSE [id number] 18:34:00 Test Item Value Reference Range Interpretation Comments POC-GLUCOSE METER 142 mg/dL 70-110 H : TESTED A T [facility] 6720 (BEAKER) (test code = BERTNE R [facility], 1538) [id number]: Sales Agent Financial Report Service/Techni david ID = [id number] for JIM DIXON, [id number] 17:19:00 Test Item Value Reference Range Interpretation Comments ABO Grouping (test code = 2588) A Rh Factor (test code = 2589) POS [facility] CenterType and screen, [id number] 16:55:00 Test Item Value Reference Range Interpretation Comments ABO/RH AUTOMATED (BEAKER) (test A POSITIVE code = 2260) Ab Scrn (test code = 890-4) NEGATIVE [facility]AP[facility] 16:17:00 Test Item Value Reference Range Interpretation Comments PARTIAL THROMBOPLASTIN TIME 35.0 seconds 22.5-36.0 (IVON) (test code = 760) Prior to initiating [id number] Echo W/Doppler(CW/PW/Color)2020-08-17 14:55:13 Ejection FractionSLEH ECHO HEARTLAB MKCKESSON CPACSInterface, External Ris In - 08/17/2020 2:55 PM CSTTransthoracic Echocardiography Report (TTE) Demographics Patient Name DOUGLAS SOMMERS Date of Study 08/17/2020 JOEL Gender Male Visit Number [id number] Race Unknown Room Number 1410 Number Date of 1945 Referring Nadya Nur MD Physician Age 75 year(s) Analysis Director VALENCIA Frances, RDCS,RVT,RDMS Conveyor Man Nicol Yu, Interpreting Sammie Husain MD RDCS Physician Procedure Type of Study TTE procedure:2DECHO WDOPPLER(CW/PW/COLOR) (STAT) Indications:Acute Chest Pain/ Suspected CAD.Clinical HistoryHTN, CAD, CATH 08/16/20Height: 63 inches Weight: 68.49 kg (151 lbs) BSA: 1.72 m^2 BMI: 26.75 kg/m^2HR: 80 bpm BP: 134/78 mmHg Summary 1. The left ventricle is chamber size (by vol index) is normal (male - LVED vol -34-74ml/m2). No evidence of LV hypertrophy. The following segment(s) appear akinetic: apex, apical septum, apical anterior wall. Global LV systolic function mildly reduced . LVEF by Garnett's method ofdisk assessment is mildly reduced (40-44%) . Grade 1 diastolic dysfunction (impaired relaxation and low-normal LA pressure). 2. The right ventricular chamber size and systolic function are within normal limits. S' 10 cm/sec. 3. LA size is normal (16-34 ml/m2) . RA size is normal. 4. A trace of tricuspid regurgitation. Unable to estimate peak systolic PA pressure; inadequate TR velocity signal. Theestimated RA pressure by IVC dynamics 0-5mmHg . 5. No significant pericardial effusion is visualized. Previous Study No prior studies available for comparison. Signature Findings Te chnical Quality: Technically adequate exam. Left Ventricle LV endocardium is partially visualized with IV ultrasound enhancing agent. The left ventricle is chamber size (by vol index) is normal (male - LVED vol - 34-74ml/m2).No evidence of LV hypertrophy. The following segment(s) appear akinetic: apex, apical septum, apical anterior wall. Global LV systolic function mildly reduced . LVEF by Garnett's method of disk assessment is mildly reduced (40-44%) . Grade 1 diastolic dysfunction (impaired relaxation and low-normal LA pressure). Left Atrium LA size is normal (16-34 ml/m2) . Right Ventricle The right ventricular chamber size and systolic function are within normal limits. S' 10 cm/sec. Right Atrium RA size is normal. Aortic Valve Trileaflet aortic valve. Mild AoV cusp thickening. No evidence of aortic stenosis. No evidence of aortic regurgitation. Mitral Valve Mild MV leaflet thickening. Trace mitral regurgitation. Tricuspid Valve TV structure is normal. A trace of tricuspid regurgitation. Unable to estimate peak systolic PA pressure; inadequate TR velocitysignal. Pulmonic Valve Normal PV structure and function by limited views and Doppler. Aorta Aortic root size (SInus of Valsalva diameter) is normal . Pericardium No significant pericardial effusion is visualized. IVC/SVC/PA/PV/Pleural The estimated RA pressure by IVC dynamics 0-5mmHg . Chambers/Structures Left Atrium LA Dimension: 3.2 cm LA Area: 19.36 cm^2 LA Volume: 48.72 ml LA Vol. Index: 28 ml/m^2 Left Ventricle LVIDd: 5.14 cm LVIDs: 2.74 cm LV Septum Diastolic: 0.97 cm LV PW Diastolic: 0.91 cm LV FS: 46.7 % LVEDV Garnett's:65 ml LVESV Garnett's:36 ml LVEDVI: 38 ml/m^2 LVEF Garnett's: 44 % LVESVI: 21 ml/m^2 LVOT Diameter: 2.01 cm Right Atrium RA Area: 14 cm^2 RA Vol. (Sngl Plane): 42 ml Right Ventricle RV Diast Dim.: 3.7 cm TAPSE: 1.44 cm Aorta Ao Root S of Grecia.: 3.7 cm Doppler/Quantitative Measurements Mitral Valve MV Peak E-Wave: 0.55 m/s MV Peak A-Wave: 0.78 m/s E/A Ratio: 0.71 Peak Gradient: 1.23 mmHg Deceleration Time: 196 msec MV Asif. Peak: Tissue Doppler E' Septal Velocity: 0.06 m/s E/E': 9.04 E'Lateral Velocity: 0.06 m/s Aortic Valve Peak Velocity: 1.24 m/s Mean Velocity: 0.87 m/s Peak Gradient: 6.14 mmHg Mean Gradient: 3.3 mmHg AV Area (continuity): 2.47 cm^2 AV VTI: 25.21 cm AV DVI: 0.78 LVOT Peak Velocity: 1.08 m/s Peak Gradient: 4.7 mmHg Mean Velocity: 0.59 m/s Mean Gradient: 1.76 mmHg LVOT Diameter: 2.01 cm LVOT VTI: 19.63 cm LVOT Area: 3.17 cm^2 LVOT SV:62.26 ml LVOT CO: 4.98 l/min LVOT CI: 2.9 l/min/m^2CMission Community HospitalARS-CoV2/RT-PCR (Asymptomatic ONLY)2020-08-17 14:24:00 Test Item Value Reference Range Interpretation Comments SARS-COV2/RT-PCR Negative Not Detected, (test code = Negative, See 46285-1) external report for linked test SARS-COV-2 [facility] PERFORMING LAB (test code = 73429-8) SARAH (test code = Negative result for this SARAH) test determines that SARS-CoV-2 RNA was not present in the specimen above the Limit of Detection (LOD). However, Negative results do not preclude SARS-CoV-2 infection and should not be used as the sole basis for treatment or patient management decisions. Negative results must be combined with clinical observations, patient history, and epidemiological information. A false negative result may occur if a specimen is improperly collected, transported or handled. A false negative result should be considered if patient's recent exposures or clinical presentation indicate that COVID-19 (SARS-CoV-2) is likely and diagnostic tests for other causes of illness are negative. Re-testing should be considered in cases of suspected false negatives. The limit of detection for this assay is 800 copies/mL. This SARS CoV-2 test is a real-time RT-PCR test intended for the qualitative detection of nucleic acid from SARS-CoV-2 in a nasopharyngeal swab specimen collected from individuals suspected of COVID-19 by their healthcare provider. This test has not been Food and Drug Administration (FDA) cleared or approved. This is a modified version of an approved Emergency Use Authorization (EUA) and is in the process of review by the FDA. Once authorized by the FDA, the issued EUA will be effective until the declaration that circumstances exist justifying the authorization of the emergency use of in vitro diagnostic tests for detection and/or diagnosis of COVID-19 is terminated under Section 564(b)(2) of the Act or the EUA is revoked under Section 564(g) of the Act. Fact Sheet for Healthcare Providers:https://www.[employer].adsquare/sites/default/f sherrell/product/documents/F act_Sheet_HC_Providers_L hvn_TYFV-UsU-5.pdf Fact Sheet for Healthcare Patients:https://www.[employer].adsquare/sites/default/fi les/product/documents/Fa ct_Sheet_Patients_Lyra_S ARS-CoV-2.pdf Performing Laboratory:[facility] [place] [address] [facility])2020-08-17 14:24:00 Test Item Value Reference Range Interpretation Comments SARS-COV2/RT-PCR (test Negative Not Detected, Negative, code = 7918835) See external report for linked test SARS-COV-2 PERFORMING LAB [facility] (test code = 9788215) Negative result for this test determines that SARS-CoV-2 RNA was not present in the specimen above the Limit of Detection (LOD). However, Negative results do not preclude SARS-CoV-2 infection and should not be used as the sole basis for treatment or patient management decisions. Negative results mustbe combined with clinical observations, patient history, and epidemiological information. A false negative result may occur if a specimen is improperly collected, transported or handled. A false negative result should be considered if patient's recent exposures or clinical presentation indicate that COVID-19 (SARS-CoV-2) is likely and diagnostic tests for other causes of illness are negative. Re-testing should be considered in cases of suspected false negatives.The limit of detection for this assay is 800 copies/mL.This SARS CoV-2 test is a real-time RT-PCR test intended for the qualitative detection of nucleic acid from SARS-CoV-2 in a nasopharyngeal swab specimen collected from individuals susp ected of COVID-19 by their healthcare provider.This test has not been Food and Drug Administration (FDA) cleared or approved. This is a modified version of an approved Emergency Use Authorization (EUA) and is in the process of review by the FDA. Once authorized by the FDA, the issued EUA will be effective until the declaration that circumstances exist justifying the authorization of the emergency use of in vitro diagnostic tests for detection and/or diagnosis of COVID-19 is terminated under Section 564(b)(2) of the Act or the EUA is revoked under Section 564(g) of the Act.Fact Sheet for Healthcare Providers:https://www.[employer].com/sites/default/files/product/documents/Fact_Shee o_CD_Cjpblyfgh_Qswo_IWEI-ZrM-0.pdfFact Sheet for Healthcare Patients:https://www.[employer].com/sites/default/files/product/ documents/Axfr_Rljkp_Fphlcwil_Ybav_ZYIW-KeF-2.pdfPerforming Laboratory:[facility]Unm [facility], [place] [address]YDVG-APSRUXE METER 2020-08-17 12:23:00 Test Item Value Reference Range Interpretation Comments POC-GLUCOSE METER 140 mg/dL 70-110 H : TESTED A T [facility] 6720 (BEAKER) (test code = TWIN Fritz [facility], 1538) [id number]: Sales Agent Financial Report Service/Techni david ID = [id number] for JIM DIXON POCT-GLUCOSE [id number] 12:03:00 Test Item Value Reference Range Interpretation Comments POC-GLUCOSE METER 119 mg/dL 70-110 H : TESTED A T [facility] 6720 (BEAKER) (test code = TWIN Fritz [facility], 1538) [id number]: Sales Agent Financial Report Service/Techni david ID = [id number] for JIM DIXON Lipid [id number] 09:58:00 Test Item Value Reference Range Interpretation Comments Triglycerides (test 84 mg/dL Specimen code = 2571-8) slightly hemolyzed Cholesterol (test 161 mg/dL Specimen code = 2093-3) slightly hemolyzed HDL (test code = 60 mg/dL 5-9) LDL Calculated (test 84 mg/dL code = 00320-9) SARAH (test code = Triglyceride SARAH) Reference Range: Low Risk <150 Borderline 150-199 High Risk 200-499 Very High Risk >=500 Cholesterol Reference Range: Low Risk <200 Borderline 200-239 High Risk >240 HDL Cholesterol Reference Range: Low Risk >=60 High Risk <40 LDL Cholesterol Reference Range: Optimal <100 Near Optimal 100-129 Borderline 130-159 High 160-189 Very High >=190 Sales Agent Financial Report Service ID - RM [facility] HospitalLIPID [id number] 09:58:00 Test Item Value Reference Range Interpretation Comments TRIGLYCERIDES (BEAKER) 84 mg/dL Speci men slightly (test code = 540) hemolyzed CHOLESTEROL (BEAKER) 161 mg/dL Specime n slightly (test code = 631) hemolyzed HDL CHOLESTEROL (BEAKER) 60 mg/dL (test code = 976) LDL CHOLESTEROL 84 mg/dL CALCULATED (BEAKER) (test code = 633) Triglyceride Reference Range: Low Risk <150 Borderline 150-199 High Risk 200-499 Very High Risk >=500Cholesterol Reference Range: Low Risk <200 Borderline 200-239 High Risk >240HDL Cholesterol Reference Range: Low Risk >=60 High Risk <40LDL Cholesterol Reference Range: Optimal <100 Near Optimal 100-129 Borderline 130-159 High 160-189 Very High >=190 Sales Agent Financial Report Service ID - RMHemoglobin [id number] 07:25:00 Test Item Value Reference Range Interpretation Comments Hemoglobin A1C (test code = 4548-4) 5.6 % 4.3-6.1 Lab Interpretation (test code = Normal 67241-5) [facility] CenterHEMOGLOBIN [id number] 07:25:00 Test Item Value Reference Range Interpretation Comments HEMOGLOBIN A1C (BEAKER) (test code = 5.6 % 4.3-6.1 368) Troponin [id number] 04:07:00 Test Item Value Reference Range Interpretation Comments Troponin I (test code = 0.01 ng/mL 0-0.03 93225-4) SARAH (test code = SARAH) Troponin I (TnI) levels must be interpreted in the context of the presenting symptoms and the clinical findings. Elevated TnI levels indicate myocardial damage, but are not specific for ischemic heart disease. Elevated TnI levels are seen in patients with other cardiac conditions (including myocarditis and congestive heart failure), and slight TnI elevations occur in patients with other conditions, including sepsis, renal failure, acidosis, acute neurological disease, and persistent tachyarrhythmia.Opera tor ID - EDASI Lab Interpretation (test Normal code = 59448-2) [facility] CenterTROPONIN [id number] 04:07:00 Test Item Value Reference Range Interpretation Comments TROPONIN I (BEAKER) (test code = 0.01 ng/mL 0.00-0.03 397) Troponin I (TnI) levels must be interpreted in the context of the presenting symptoms and the clinical findings. Elevated TnI levels indicate myocardial damage, but are not specific for ischemic heart disease. Elevated TnI levels are seen in patients with other cardiac conditions (including myocarditis and congestive heart failure), and slight TnI elevations occur in patients with other conditions, including sepsis, renal failure, acidosis, acute neurological disease, and persistent tachyarrhythmia.Sales Agent Financial Report Service ID - EDASIBasic metabolic panel 2020-08-17 03:58:00 Test Item Value Reference Range Interpretation Comments Sodium (test code = 142 meq/L 404-344 3319-2) Potassium (test code = 4.8 meq/L 3.5-5.1 Speci men slightly 2823-3) hemolyzed Chloride (test code = 109 meq/L 98-107 H 2075-0) CO2 (test code = 22 meq/L 22-29 2028-9) BUN (test code = 19 mg/dL 7-21 3094-0) Creatinine (test code 1.29 mg/dL 0.57-1.25 H Specim en slightly = 2160-0) hemolyzed Glucose (test code = 104 mg/dL 70-105 2345-7) Calcium (test code = 9.3 mg/dL 8.4-10.2 81112-3) EGFR (test code = 55 mL/min/1.73 [place] [address]-2) NOT ACCURATE CREATININE CLEARANCE IN PREDICTING GLOMERULAR FILTRATION RATE . ESTIMATED GFR I S NOT APPLICABLE FOR DIALYSIS PATIENTS. SARAH (test code = SARAH) Sales Agent Financial Report Service ID - EDASI Lab Interpretation Abnormal (test code = 52257-1) [facility] METABOLIC [id number] 03:58:00 Test Item Value Reference Range Interpretation Comments SODIUM (BEAKER) 142 meq/L 136-145 (test code = 381) POTASSIUM (BEAKER) 4.8 meq/L 3.5-5.1 Specimen slightly (test code = 379) hemolyzed CHLORIDE (BEAKER) 109 meq/L 98-107 H (test code = 382) CO2 (BEAKER) (test 22 meq/L 22-29 code = 355) BLOOD UREA NITROGEN 19 mg/dL 7-21 (BEAKER) (test code = 354) CREATININE (BEAKER) 1.29 mg/dL 0.57-1.25 H Specimen slightly (test code = 358) hemolyzed GLUCOSE RANDOM 104 mg/dL 70-105 (BEAKER) (test code = 652) CALCIUM (BEAKER) 9.3 mg/dL 8.4-10.2 (test code = 697) EGFR (BEAKER) (test 55 mL/min/1.73 ESTIMA MIKE GFR IS code = 1092) sq m NOT ACCURATE CREATININE CLEARANCE IN PREDICTING GLOMERULAR FILTRATION RATE . ESTIMATED GFR I S NOT APPLICABLE FOR DIALYSIS PATIEN TS. Sales Agent Financial Report Service ID - EDASICBC W/PLT COUNT & AUTO [id number] 03:35:00 Test Item Value Reference Range Interpretation Comments WHITE BLOOD CELL COUNT (BEAKER) 7.1 K/ L 3.5-10.5 (test code = 775) RED BLOOD CELL COUNT (BEAKER) 3.68 M/ L 4.63-6.08 L (test code = 761) HEMOGLOBIN (BEAKER) (test code = 12.9 GM/DL 13.7-17.5 L 410) HEMATOCRIT (BEAKER) (test code = 39.3 % 40.1-51.0 L 411) MEAN CORPUSCULAR VOLUME (BEAKER) 106.8 fL 79.0-92.2 H (test code = 753) MEAN CORPUSCULAR HEMOGLOBIN 35.1 pg 25.7-32.2 H (BEAKER) (test code = 751) MEAN CORPUSCULAR HEMOGLOBIN CONC 32.8 GM/DL 32.3-36.5 (BEAKER) (test code = 752) RED CELL DISTRIBUTION WIDTH 11.9 % 11.6-14.4 (BEAKER) (test code = 412) PLATELET COUNT (BEAKER) (test 201 K/CU MM 150-450 code = 756) MEAN PLATELET VOLUME (BEAKER) 11.3 fL 9.4-12.4 (test code = 754) NUCLEATED RED BLOOD CELLS 0 /100 WBC 0-0 (BEAKER) (test code = 413) NEUTROPHILS RELATIVE PERCENT 57 % (BEAKER) (test code = 429) LYMPHOCYTES RELATIVE PERCENT 25 % (BEAKER) (test code = 430) MONOCYTES RELATIVE PERCENT 13 % (BEAKER) (test code = 431) EOSINOPHILS RELATIVE PERCENT 4 % (BEAKER) (test code = 432) BASOPHILS RELATIVE PERCENT 1 % (BEAKER) (test code = 437) NEUTROPHILS ABSOLUTE COUNT 4.01 K/ L 1.78-5.38 (BEAKER) (test code = 670) LYMPHOCYTES ABSOLUTE COUNT 1.79 K/ L 1.32-3.57 (BEAKER) (test code = 414) MONOCYTES ABSOLUTE COUNT (BEAKER) 0.92 K/ L 0.30-0.82 H (test code = 415) EOSINOPHILS ABSOLUTE COUNT 0.28 K/ L 0.04-0.54 (BEAKER) (test code = 416) BASOPHILS ABSOLUTE COUNT (BEAKER) 0.06 K/ L 0.01-0.08 (test code = 417) IMMATURE GRANULOCYTES-RELATIVE 0 % 0-1 PERCENT (BEAKER) (test code = 2801) POCT-GLUCOSE [id number] 22:05:00 Test Item Value Reference Range Interpretation Comments POC-GLUCOSE METER 137 mg/dL 70-110 H : TESTED A T [facility] 6720 (IVON) (test code = TWIN DEWEY MD, 1538) 38791: Sales Agent Financial Report Service/Techni david ID = [id number] for Jaime Rowan TROPONIN [id number] 22:00:00 Test Item Value Reference Range Interpretation Comments TROPONIN I (IVON) (test code = 0.01 ng/mL 0.00-0.03 397) Troponin I (TnI) levels must be interpreted in the context of the presenting symptoms and the clinical findings. Elevated TnI levels indicate myocardial damage, but are not specific for ischemic heart disease. Elevated TnI levels are seen in patients with other cardiac conditions (including myocarditis and congestive heart failure), and slight TnI elevations occur in patients with other conditions, including sepsis, renal failure, acidosis, acute neurological disease, and persistent tachyarrhythmia.Sales Agent Financial Report Service ID - DBHepatic function panel [id number] 21:53:00 Test Item Value Reference Range Interpretation Comments Protein, Total (test 7.8 See_Comment [Autom ated code = 2885-2) message] The system which generated this result transmit mike reference range : 6.0 - 8.3 gm/dL . The reference range was not u sed to interpret th is result as normal/abnormal . Albumin (test code = 4.2 g/dL 3.5-5 49021-6) Total Bilirubin (test 0.4 mg/dL 0.2-1.2 code = 1975-2) Bilirubin, Direct 0.2 mg/dL 0.1-0.5 (test code = 1968-7) Alkaline Phosphatase 54 U/L 40-150 (test code = 6768-6) AST (test code = 17 U/L 5-34 1920-8) ALT (test code = 17 U/L 6-55 1742-6) SARAH (test code = SARAH) Sales Agent Financial Report Service ID - DB Lab Interpretation Normal (test code = 08960-1) [facility] METABOLIC [id number] 21:53:00 Test Item Value Reference Range Interpretation Comments SODIUM (YOLIAKER) 142 meq/L 136-145 (test code = 381) POTASSIUM (BEAKER) 4.7 meq/L 3.5-5.1 (test code = 379) CHLORIDE (BEAKER) 108 meq/L 98-107 H (test code = 382) CO2 (BEAKER) (test 23 meq/L 22-29 code = 355) BLOOD UREA NITROGEN 18 mg/dL 7-21 (BEAKER) (test code = 354) CREATININE (BEAKER) 1.33 mg/dL 0.57-1.25 H (test code = 358) GLUCOSE RANDOM 98 mg/dL 70-105 (BEAKER) (test code = 652) CALCIUM (BEAKER) 9.2 mg/dL 8.4-10.2 (test code = 697) EGFR (BEAKER) (test 53 mL/min/1.73 ESTIMA MIKE GFR IS code = 1092) sq m NOT ACCURATE CREATININE CLEARANCE IN PREDICTING GLOMERULAR FILTRATION RATE . ESTIMATED GFR I S NOT APPLICABLE FOR DIALYSIS PATIEN TS. Sales Agent Financial Report Service ID - [id number] 21:53:00 Test Item Value Reference Range Interpretation Comments MAGNESIUM (BEAKER) (test code = 2.1 mg/dL 1.6-2.6 627) Sales Agent Financial Report Service ID - DBHEPATIC FUNCTION [id number] 21:53:00 Test Item Value Reference Range Interpretation Comments TOTAL PROTEIN (BEAKER) (test code = 7.8 gm/dL 6.0-8.3 770) ALBUMIN (BEAKER) (test code = 1145) 4.2 g/dL 3.5-5.0 BILIRUBIN TOTAL (BEAKER) (test code 0.4 mg/dL 0.2-1.2 = 377) BILIRUBIN DIRECT (BEAKER) (test 0.2 mg/dL 0.1-0.5 code = 706) ALKALINE PHOSPHATASE (BEAKER) (test 54 U/L 40-150 code = 346) AST (SGOT) (BEAKER) (test code = 17 U/L 5-34 353) ALT (SGPT) (BEAKER) (test code = 17 U/L 6-55 347) Sales Agent Financial Report Service ID - [id number] 21:46:00 Test Item Value Reference Range Interpretation Comments PROTIME (BEAKER) (test code = 13.1 seconds 11.9-14.2 759) INR (BEAKER) (test code = 370) 1.02 <=5.90 Effective 02/05/2019: PT Reference Range ChangeNew: 11.9-14.2 Previous: 11.7- 14.7RECOMMENDED COUMADIN/WARFARIN INR THERAPY RANGESSTANDARD DOSE: 2.0-3.0 Includes: PROPHYLAXIS for venous thrombosis, systemic embolization; TREATMENT for venous thrombosis and/or pulmonary embolus.HIGH RISK: Target INR is2.5-3.5 for patients wiht mechanical heart valves.CBC W/PLT COUNT & AUTO [id number] 21:38:00 Test Item Value Reference Range Interpretation Comments WHITE BLOOD CELL COUNT (BEAKER) 8.3 K/ L 3.5-10.5 (test code = 775) RED BLOOD CELL COUNT (BEAKER) 3.89 M/ L 4.63-6.08 L (test code = 761) HEMOGLOBIN (BEAKER) (test code = 13.8 GM/DL 13.7-17.5 410) HEMATOCRIT (BEAKER) (test code = 41.8 % 40.1-51.0 411) MEAN CORPUSCULAR VOLUME (BEAKER) 107.5 fL 79.0-92.2 H (test code = 753) MEAN CORPUSCULAR HEMOGLOBIN 35.5 pg 25.7-32.2 H (BEAKER) (test code = 751) MEAN CORPUSCULAR HEMOGLOBIN CONC 33.0 GM/DL 32.3-36.5 (BEAKER) (test code = 752) RED CELL DISTRIBUTION WIDTH 11.9 % 11.6-14.4 (BEAKER) (test code = 412) PLATELET COUNT (BEAKER) (test 237 K/CU MM 150-450 code = 756) MEAN PLATELET VOLUME (BEAKER) 11.3 fL 9.4-12.4 (test code = 754) NUCLEATED RED BLOOD CELLS 0 /100 WBC 0-0 (BEAKER) (test code = 413) NEUTROPHILS RELATIVE PERCENT 62 % (BEAKER) (test code = 429) LYMPHOCYTES RELATIVE PERCENT 23 % (BEAKER) (test code = 430) MONOCYTES RELATIVE PERCENT 11 % (BEAKER) (test code = 431) EOSINOPHILS RELATIVE PERCENT 3 % (BEAKER) (test code = 432) BASOPHILS RELATIVE PERCENT 1 % (BEAKER) (test code = 437) NEUTROPHILS ABSOLUTE COUNT 5.13 K/ L 1.78-5.38 (BEAKER) (test code = 670) LYMPHOCYTES ABSOLUTE COUNT 1.93 K/ L 1.32-3.57 (BEAKER) (test code = 414) MONOCYTES ABSOLUTE COUNT (BEAKER) 0.93 K/ L 0.30-0.82 H (test code = 415) EOSINOPHILS ABSOLUTE COUNT 0.22 K/ L 0.04-0.54 (BEAKER) (test code = 416) BASOPHILS ABSOLUTE COUNT (BEAKER) 0.08 K/ L 0.01-0.08 (test code = 417) IMMATURE GRANULOCYTES-RELATIVE 1 % 0-1 PERCENT (BEAKER) (test code = 2801)
[2021-03-12 17:44] LABS: Urine Blood Trace-intact (Negative); Urine Glucose Negative (Negative); Urine Protein Negative (Negative); Urine Specific Gravity <=1.005 (1.005-1.030)
[2021-03-12 18:17] LABS: ALT/SGPT 32 U/L (12-78); AST/SGOT 25 U/L (15-37); Albumin 4.2 g/dL (3.4-5.0); Alkaline Phosphatase 74 U/L (45-117); BUN Blood Urea Nitrogen 14 mg/dL (7-18); Bicarbonate 27 mmol/L (21-32); Bilirubin Direct 0.1 mg/dL (0-0.2); Bilirubin Total 0.4 mg/dL (0.2-1.0); Glucose Level 112 mg/dL (74-106); Magnesium 2.1 mg/dL (1.8-2.4); NT PRO-BNP 268 pg/mL (<125); Potassium 4.7 mmol/L (3.5-5.1); Protein, Total 8.6 g/dL (6.4-8.2); Sodium Level 138 mmol/L (136-145); Troponin (Emerg Dept Use Only) < 0.02 ng/mL (0.0-0.045)
[2021-03-12 18:35] LABS: Absolute Lymphocytes (CBC) 1.6 K/uL (0.7-4.9); Basophils % 0.5 % (0-1.3); Lymphocytes % 15.7 % (15.3-44.8); MPV 10.7 fL (7.6-11.3); RBC Red Blood Cell Count 4.13 M/uL (4.33-5.43)
--- NOTE | 2021-03-12 18:40 | RAD REPORT ---
EXAM DESCRIPTION: RAD - Ankle Left 3 View - 03/12/2021 6:31 pm CLINICAL HISTORY: foot swelling Pain swelling COMPARISON: <Comparisons> FINDINGS: Moderate sized plantar calcaneal spur. Mild vertebral atherosclerosis. Mild degenerative change tibiotalar joint. No acute fracture or dislocation.
[2021-03-12] MEDS ORDERED: lisinopriL 20 MG TAB ONE (18:55)
--- NOTE | 2021-03-12 20:31 | ER ---
Nurse's Notes [facility] Name: Adolph Lopez Age: 76 yrs Sex: Male : 1945 Arrival Date: 03/12/2021 Time: 16:48 Bed 18 Private MD: Diagnosis: Uncontrol hypertension. Moderate size left planter spur Presentation: 03/12 16:57 Chief complaint: Patient states: stated that she took his B/P at home and it was kg high. Coronavirus screen: Client denies travel out of the [place] in the last 14 days. At this time, unable to obtain information related to travel outside the [place] At this time, the client does not indicate any symptoms associated with coronavirus-19. Ebola Screen: Patient negative for fever greater than or equal to 101.5 degrees Fahrenheit, and additional compatible Ebola Virus Disease symptoms Patient denies exposure to infectious person. Patient denies travel to an Ebola-affected area in the 21 days before illness onset. Initial Sepsis Screen: Does the patient meet any 2 criteria? No. Patient's initial sepsis screen is negative. Does the patient have a suspected source of infection? No. Patient's initial sepsis screen is negative. Risk Assessment: Do you want to hurt yourself or someone else? Patient reports no desire to harm self or others. Onset of symptoms was March 12, 2021. 16:57 Method Of Arrival: Ambulatory kg 16:57 Acuity: TANIA 3 kg Triage Assessment: 16:59 General: Appears in no apparent distress. General: Behavior is calm, cooperative, kg appropriate for age, quiet. Pain: Complains of pain in dorsum of left foot Pain currently is 8 out of 10 on a pain scale. at worst was 8 out of 10 on a pain scale. level that patient reports is acceptable is 3 out of 10 on a pain scale. Quality of pain is described as throbbing. Historical: - Allergies: 16:59 No Known Allergies; kg - PMHx: 16:59 Arthritis; Hypertensive disorder; Hypercholesterolemia; kg - PSHx: 16:59 Coronary artery bypass graft; kg - Immunization history:: Adult Immunizations not up to date, Client reports having NOT received the Covid vaccine. - Social history:: Smoking status: Patient reports the use of cigarette tobacco products, denies chronic smoking, but will smoke occasionally, Patient uses alcohol, on a daily basis. Screenin:07 Abuse screen: Denies threats or abuse. Denies injuries from another. Nutritional kg screening: No deficits noted. Tuberculosis screening: No symptoms or risk factors identified. Fall Risk None identified. No fall in past 12 months (0 pts). No secondary diagnosis (0 pts). No IV (0 pts). Ambulatory Aid- None/Bed Rest/Nurse Assist (0 pts). Gait- Impaired (20 pts.). Mental Status- Oriented to own ability (0 pts). Total Lo Fall Scale indicates No Risk (0-24 pts). Assessment: 18:11 General: Appears uncomfortable, Behavior is calm, cooperative, appropriate for age. zb Pain: Complains of pain in left foot Pain currently is 8 out of 10 on a pain scale. Quality of pain is described as aching, throbbing, Pain began 2-3 weeks. Neuro: Level of Consciousness is awake, alert, obeys commands, Oriented to person, place, time, situation. Cardiovascular: Patient's skin is warm and dry. Cardiovascular: Denies chest pain, diaphoresis, fatigue, lightheadedness, nausea, palpitations, shortness of breath, syncope, vomiting. Respiratory: Airway is patent Respiratory effort is even, unlabored, Respiratory pattern is regular, symmetrical. Derm: Skin is intact, is healthy with good turgor, Skin is dry, Skin is normal. Musculoskeletal: Range of motion: limited in left ankle. 19:30 Reassessment: Patient appears in no apparent distress at this time. Patient and/or zb family updated on plan of care and expected duration. Pain level reassessed. Patient is alert, oriented x 3, equal unlabored respirations, skin warm/dry/pink. 20:35 Reassessment: Patient appears in no apparent distress at this time. Patient and/or zb family updated on plan of care and expected duration. Pain level reassessed. Patient is alert, oriented x 3, equal unlabored respirations, skin warm/dry/pink. notified ecp of pain. received verbal order for pain medication. medication given. Vital Signs: 16:57 BP 172 / 108; Resp 20; Weight 73.8 kg (R); Height 5 ft. 3 in. (160.02 cm) (R); kg 17:10 BP 164 / 93; Pulse 101; Resp 20; Temp 98.4(O); Pulse Ox 96% on R/A; kg 18:13 BP 185 / 100; Pulse 103; Resp 16; Pulse Ox 97% on R/A; zb 20:05 BP 180 / 78; Pulse 98; Resp 16; Pulse Ox 97% on R/A; zb 20:30 BP 166 / 82; Pulse 92; Resp 16; Pulse Ox 95% on R/A; zb 16:57 Body Mass Index 28.82 (73.80 kg, 160.02 cm) kg ED Course: 16:48 Patient arrived in ED. mr 16:53 Rosalio Eugene MD is Attending Physician. kdr 16:59 Triage completed. kg 17:08 Arm band placed on left wrist. kg 17:08 Patient has correct armband on for positive identification. kg 17:51 Inserted saline lock: 20 gauge in right antecubital area, using aseptic technique. kg 18:11 Reyna Arreguin, ELENA is Primary Nurse. zb 18:16 EKG done, by ED staff, reviewed by Rosalio Eugene MD. mh5 18:31 Ankle Left 3 View In Process Unspecified. EDMS 18:33 Basic Metabolic Panel Sent. mh5 18:33 CBC with Diff Sent. mh5 18:33 PT-INR Sent. mh5 18:33 CBC with Automated Diff Sent. mh5 19:16 Attending Physician role handed off by Rosalio Eugene MD pkl 19:16 Terry Hou MD is Attending Physician. pkl 20:39 No provider procedures requiring assistance completed. IV discontinued, intact, zb bleeding controlled, No redness/swelling at site. Pressure dressing applied. Administered Medications: 18:44 Drug: Lisinopril 20 mg Route: PO; zb 20:03 Follow up: Response: No adverse reaction; No change in condition zb 20:39 Drug: HYDROcodone-acetaminophen 5 mg-325 mg 1 tabs {Note: RASS 0.} Route: PO; zb 20:39 Follow up: Response: Medication administered at discharge. zb Outcome: 20:30 Discharge ordered by . pkl 20:39 Discharged to home via wheelchair, with family. zb 20:39 Condition: stable 20:39 Discharge instructions given to patient, family, Instructed on discharge instructions, follow up and referral plans. medication usage, Demonstrated understanding of instructions, follow-up care, medications, Prescriptions given X 1. 20:41 Patient left the ED. zb Signatures: Dispatcher [employer] EDTerry Malik MD MD pkl Rittger, Kevin, MD MD kdr Rivera, Carmen mr Xiao, Roxane Reyna Vazquez RN RN zb Graham, Kristen, RN RN kg Corrections: (The following items were deleted from the chart) 17:02 16:59 PMHx: Hypertensive disorder; kg kg
--- NOTE | 2021-03-12 20:31 | EDPHYS ---
Physician Documentation [facility] Name: Adolph Lopez Age: 76 yrs Sex: Male : 1945 Arrival Date: 03/12/2021 Time: 16:48 Bed 18 Private MD: ED Physician Terry Hou HPI: 03/12 18:22 This 76 yrs old Male presents to ER via Ambulatory with complaints of High kdr Blood Pressure. 18:22 The patient has elevated blood pressure and discovered this at home, with a home kdr device. Onset: The symptoms/episode began/occurred at an unknown time. Modifying factors: The symptoms are aggravated by Walking on left ankle/.foot. he has had pain in the left ankle for about 2.5 weeks and his thinks that he may be having HTN as a result of the pain from walking on the left ankle. Associated signs and symptoms: The patient has no apparent associated signs or symptoms. Severity of symptoms: At its worst the blood pressure was 200 mm Hg, in the emergency department the blood pressure is improved, mildly. The patient has not experienced similar symptoms in the past. The patient has not recently seen a physician. Historical: - Allergies: 16:59 No Known Allergies; kg - PMHx: 16:59 Arthritis; Hypertensive disorder; Hypercholesterolemia; kg - PSHx: 16:59 Coronary artery bypass graft; kg - Immunization history:: Adult Immunizations not up to date, Client reports having NOT received the Covid vaccine. - Social history:: Smoking status: Patient reports the use of cigarette tobacco products, denies chronic smoking, but will smoke occasionally, Patient uses alcohol, on a daily basis. ROS: 18:22 Constitutional: Negative for fever, chills, and weight loss, Eyes: Negative for injury, kdr pain, redness, and discharge, ENT: Negative for injury, pain, and discharge, Neck: Negative for injury, pain, and swelling, Cardiovascular: Negative for chest pain, palpitations, and edema, Respiratory: Negative for shortness of breath, cough, wheezing, and pleuritic chest pain, Abdomen/GI: Negative for abdominal pain, nausea, vomiting, diarrhea, and constipation, Back: Negative for injury and pain, : Negative for injury, bleeding, discharge, and swelling, Skin: Negative for injury, rash, and discoloration, Neuro: Negative for headache, weakness, numbness, tingling, and seizure activity. Psych: Negative for depression, anxiety, suicide ideation, homicidal ideation, and hallucinations, Allergy/Immunology: Negative for hives, rash, and allergies, Endocrine: Negative for neck swelling, polydipsia, polyuria, polyphagia, and marked weight changes, Hematologic/Lymphatic: Negative for swollen nodes, abnormal bleeding, and unusual bruising. 18:22 MS/extremity: Positive for injury or acute deformity, decreased range of motion, pain, swelling, tenderness, of the left foot and anterior aspect of left ankle. Exam: 18:22 Constitutional: This is a well developed, well nourished patient who is awake, alert, kdr and in no acute distress. Head/Face: Normocephalic, atraumatic. Eyes: Pupils equal round and reactive to light, extra-ocular motions intact. Lids and lashes normal. Conjunctiva and sclera are non-icteric and not injected. Cornea within normal limits. Periorbital areas with no swelling, redness, or edema. Neck: Trachea midline, no thyromegaly or masses palpated, and no cervical lymphadenopathy. Supple, full range of motion without nuchal rigidity, or vertebral point tenderness. No Meningismus. Chest/axilla: Normal chest wall appearance and motion. Nontender with no deformity. No lesions are appreciated. Cardiovascular: Regular rate and rhythm with a normal S1 and S2. No gallops, murmurs, or rubs. Normal PMI, no JVD. No pulse deficits. Respiratory: Lungs have equal breath sounds bilaterally, clear to auscultation and percussion. No rales, rhonchi or wheezes noted. No increased work of breathing, no retractions or nasal flaring. Abdomen/GI: Soft, non-tender, with normal bowel sounds. No distension or tympany. No guarding or rebound. No evidence of tenderness throughout. Back: No spinal tenderness. No costovertebral tenderness. Full range of motion. Skin: Warm, dry with normal turgor. Normal color with no rashes, no lesions, and no evidence of cellulitis. Neuro: Awake and alert, GCS 15, oriented to person, place, time, and situation. Cranial nerves II-XII grossly intact. Motor strength 5/5 in all extremities. Sensory grossly intact. Cerebellar exam normal. Normal gait. Psych: Awake, alert, with orientation to person, place and time. Behavior, mood, and affect are within normal limits. 18:22 Musculoskeletal/extremity: Extremities: grossly normal except: noted in the anterior aspect of left ankle: decreased ROM, pain. 18:28 ECG was reviewed by the Attending Physician. kdr Vital Signs: 16:57 BP 172 / 108; Resp 20; Weight 73.8 kg (R); Height 5 ft. 3 in. (160.02 cm) (R); kg 17:10 BP 164 / 93; Pulse 101; Resp 20; Temp 98.4(O); Pulse Ox 96% on R/A; kg 18:13 BP 185 / 100; Pulse 103; Resp 16; Pulse Ox 97% on R/A; zb 20:05 BP 180 / 78; Pulse 98; Resp 16; Pulse Ox 97% on R/A; zb 20:30 BP 166 / 82; Pulse 92; Resp 16; Pulse Ox 95% on R/A; zb 16:57 Body Mass Index 28.82 (73.80 kg, 160.02 cm) kg MDM: 18:22 Data reviewed: vital signs, nurses notes, lab test result(s), radiologic studies. kdr Counseling: I had a detailed discussion with the patient and/or guardian regarding: the historical points, exam findings, and any diagnostic results supporting the discharge/admit diagnosis, lab results, radiology results, the need for outpatient follow up. 19:16 Patient medically screened. pkl 20:22 ED course: Discussed lab, EKG and imaging studies with patient and family. Advised to pkl follow up with PCP, Batch Dumper and Orthopedist next week for further evaluations. Patient and family understood instructions. 03/12 17:09 Order name: Basic Metabolic Panel kg 03/12 17:09 Order name: CBC with Diff kg 03/12 17:09 Order name: LFT's; Complete Time: 19:18 kg 03/12 17:09 Order name: Magnesium; Complete Time: 19:18 kg 03/12 17:09 Order name: NT PRO-BNP; Complete Time: 19:18 kg 03/12 17:09 Order name: Troponin (emerg Dept Use Only); Complete Time: 19:18 kg 03/12 17:10 Order name: Basic Metabolic Panel; Complete Time: 19:18 EDMS 03/12 17:10 Order name: CBC with Automated Diff; Complete Time: 19:18 EDMS 03/12 17:44 Order name: Urine Dipstick-Ancillary; Complete Time: 19:18 EDMS 03/12 18:21 Order name: Ankle Left 3 View; Complete Time: 19:18 EDMS 03/12 17:09 Order name: EKG; Complete Time: 17:10 kg 03/12 17:09 Order name: Cardiac monitoring; Complete Time: 18:30 kg 03/12 17:09 Order name: EKG - Nurse/Tech; Complete Time: 18:30 kg 03/12 17:09 Order name: IV Saline Lock; Complete Time: 18:14 kg 03/12 17:09 Order name: Labs collected and sent; Complete Time: 18:14 kg 03/12 17:09 Order name: O2 Per Protocol; Complete Time: 18:14 kg 03/12 17:09 Order name: O2 Sat Monitoring; Complete Time: 18:14 kg EC:28 Rate is 96 beats/min. Rhythm is regular, Sinus Rhythm with No ectopy. QRS [place] is kdr Normal. DE interval is normal. QRS interval is normal. Clinical impression: NSR w/ Non-specific ST/T Changes. Administered Medications: 18:44 Drug: Lisinopril 20 mg Route: PO; zb 20:03 Follow up: Response: No adverse reaction; No change in condition zb 20:39 Drug: HYDROcodone-acetaminophen 5 mg-325 mg 1 tabs {Note: RASS 0.} Route: PO; zb 20:39 Follow up: Response: Medication administered at discharge. zb Disposition Summary: 03/12/21 20:30 Discharge Ordered Location: Home pkl Problem: new pkl Symptoms: have improved pkl Condition: Stable pkl Diagnosis - Uncontrol hypertension. Moderate size left planter spur pkl Followup: pkl - With: Private Physician - When: 2 - 3 days - Reason: Re-evaluation by your physician Discharge Instructions: - Discharge Summary Sheet pkl Forms: - Medication Reconciliation Form pkl - Thank You Letter pkl - Antibiotic Education pkl - Prescription Opioid Use pkl Prescriptions: - Diclofenac Sodium 75 mg Oral Tablet Sustained Release - take 1 tablet by ORAL route 2 times per day; 30 tablet; Refills: 0, Product pkl Selection Permitted Signatures: Dispatcher [employer] EDMS Hou, MD MD betzy Stewart Kevin, MD MD kdr Brown, Zipporah RN RN zb Milagros Guzman RN RN kg Corrections: (The following items were deleted from the chart) 17:02 16:59 PMHx: Hypertensive disorder; kg kg 18:22 17:10 Chest Single View+[email or web address].[email or web address] ordered. EDMS EDMS
[2021-03-12 20:50] VITALS: TEMP 98.4
[2021-03-12 20:54] VITALS: BP 166/82; O2SAT 95
[2021-03-12] MEDS ORDERED: HYDROCODONE/APAP 5/325 MG TAB ONE (20:55)
--- NOTE | 2021-03-13 13:46 | EKG ---
Test Date: 2021-03-12 Test Time: 18:23:38 Recreation Instructor: YESSICA MEASUREMENT RESULTS: Intervals: Rate: 96 MI: 128 QRSD: 82 QT: 334 QTc: 421 [place]: P: 69 MI: 128 QRS: 53 T: 77 INTERPRETIVE STATEMENTS: Normal sinus rhythm Possible Left atrial enlargement Cannot rule out Anterior infarct, age undetermined Abnormal ECG No previous ECG available for comparison Electronically Signed On 03-13-21 13:45:33 CDT by Juan Carlos Leiva
== END 2021-03-12 20:41 | disposition home or self-care (01) ==
LOC: ER 16:43
DX: I10 Essential (primary) hypertension (principal); M77.32 Calcaneal spur, left foot; F17.210 Nicotine dependence, cigarettes, uncomplicated; Z95.1 Presence of aortocoronary bypass graft
CPT/HCPCS: 36415; 80048; 80076; 81003; 83735; 83880; 84484; 85025; 93005; 99284